=== PATIENT | female | born 1930 | race Caucasian/White ===

== ENCOUNTER → 2016-10-19 | Outpatient (CLI) | payer OTHER, MEDICARE ==
[2016-10-18 12:38] LABS: INR 3.1 (0.9-1.1); PROTHROMBIN TIME (PATIENT) 34.7 SECONDS (9.0-12.0)
[~2016-10-19] MED LIST: ACET-1311 PO; ALUM-30 PO; ASPI81TA28 PO; CALC12502 PO; CHOL100010 PO; CLC100X PO; CLX/20 PO; CRAN475C2 PO; CYAN10004 PO; DIGO0.122 PO; DILT30TA PO; FURO-85 PO; LORA-741 PO; LSX20 PO; MICO2CRE23 TOP; POLY335025 PO; PRED10TA PO; SENN-91 OP; WARF-284 PO
== END | disposition home or self-care (01) ==
LOC: C.LABWYN 12:41
PROVIDERS: ATTEND Nurse Practitioner Family
DX: Z51.81 Encounter for therapeutic drug level monitoring (principal); Z79.01 Long term (current) use of anticoagulants

== ENCOUNTER → 2016-10-23 | Outpatient (CLI) | payer OTHER, MEDICARE ==
[2016-10-23 12:07] LABS: INR 2.8 (0.9-1.1); PROTHROMBIN TIME (PATIENT) 31.4 SECONDS (9.0-12.0)
== END | disposition home or self-care (01) ==
LOC: C.LABWYN 09:53
PROVIDERS: ATTEND Nurse Practitioner Family
DX: Z79.01 Long term (current) use of anticoagulants (principal)

== ENCOUNTER → 2016-11-06 | Outpatient (CLI) | payer OTHER, MEDICARE ==
[2016-11-06 12:48] LABS: INR 1.7 (0.9-1.1); PROTHROMBIN TIME (PATIENT) 18.8 SECONDS (9.0-12.0)
== END | disposition home or self-care (01) ==
LOC: C.LABWYN 11:29
PROVIDERS: ATTEND Internal Medicine
DX: Z51.81 Encounter for therapeutic drug level monitoring (principal); Z79.01 Long term (current) use of anticoagulants

== ENCOUNTER → 2016-11-13 | Outpatient (CLI) | payer OTHER, MEDICARE ==
[2016-11-13 08:58] LABS: INR 2.3 (0.9-1.1); PROTHROMBIN TIME (PATIENT) 25.4 SECONDS (9.0-12.0)
== END | disposition home or self-care (01) ==
LOC: C.LABWYN 08:33
PROVIDERS: ATTEND Nurse Practitioner Family
DX: I48.91 Unspecified atrial fibrillation (principal)

== ENCOUNTER → 2016-11-27 | Outpatient (CLI) | payer OTHER, MEDICARE ==
[2016-11-27 12:29] LABS: PROTHROMBIN TIME (PATIENT) 22.2 SECONDS (9.0-12.0)
== END | disposition home or self-care (01) ==
LOC: C.LABWYN 14:59
PROVIDERS: ATTEND Nurse Practitioner Family
DX: Z79.01 Long term (current) use of anticoagulants (principal); Z51.81 Encounter for therapeutic drug level monitoring

== ENCOUNTER → 2016-11-29 | Outpatient (CLI) | payer OTHER, MEDICARE ==
[2016-11-29 12:48] LABS: BLOOD UREA NITROGEN 11 mg/dl (7-18); BUN/CREATININE RATIO 14.4 (10-20); CALCIUM 8.3 mg/dl (8.5-10.1); CARBON DIOXIDE 30 mmol/L (21-32); CHLORIDE 106 mmol/L (98-107); CREATININE 0.75 mg/dl (0.60-1.20); GLUCOSE 88 mg/dl (70-99); POTASSIUM 3.6 mmol/L (3.5-5.1); SODIUM 144 mmol/L (136-145)
== END | disposition home or self-care (01) ==
LOC: C.LABWYN 17:49
PROVIDERS: ATTEND Nurse Practitioner Family
DX: I10 Essential (primary) hypertension (principal)

== ENCOUNTER → 2016-12-18 | Outpatient (CLI) | payer OTHER, MEDICARE | END | disposition home or self-care (01) | LOC: C.LABWYN 14:53 | PROVIDERS: ATTEND Internal Medicine | DX: I50.9 Heart failure, unspecified (principal); I10 Essential (primary) hypertension ==

== ENCOUNTER → 2017-01-03 | Outpatient (CLI) | payer OTHER, MEDICARE ==
[~2017-01-03] MED LIST changes: +CHOL1CAP57 PO; +CLX40 PO; +DOCU1TAB6 PO; +DONE5TAB9 PO; +LNX125 PO
[2017-01-03 12:57] LABS: INR 2.2 (0.9-1.1); PROTHROMBIN TIME (PATIENT) 23.8 SECONDS (9.0-12.0)
== END | disposition home or self-care (01) ==
LOC: C.LABWYN 11:33
PROVIDERS: ATTEND Internal Medicine
DX: Z79.01 Long term (current) use of anticoagulants (principal)

== ENCOUNTER → 2017-02-07 | Outpatient (CLI) | payer OTHER, MEDICARE ==
[2017-02-07 12:21] LABS: INR 2.1 (0.9-1.1); PROTHROMBIN TIME (PATIENT) 22.7 SECONDS (9.0-12.0)
== END | disposition home or self-care (01) ==
LOC: C.LABWYN 12:45
PROVIDERS: ATTEND Internal Medicine
DX: Z79.01 Long term (current) use of anticoagulants (principal)

== ENCOUNTER → 2017-02-28 | Outpatient (CLI) | payer OTHER, MEDICARE ==
[~2017-02-28] MED LIST changes: -CHOL1CAP57 PO; -CLX40 PO; -DOCU1TAB6 PO; -DONE5TAB9 PO; -LNX125 PO
[2017-02-28 12:32] LABS: INR 1.6 (0.9-1.1); PROTHROMBIN TIME (PATIENT) 17.2 SECONDS (9.0-12.0)
== END | disposition home or self-care (01) ==
LOC: C.LABWYN 07:19
PROVIDERS: ATTEND Internal Medicine
DX: I48.91 Unspecified atrial fibrillation (principal)

== ENCOUNTER → 2017-03-07 | Outpatient (CLI) | payer OTHER, MEDICARE ==
[~2017-03-07] MED LIST changes: +CHOL1CAP57 PO; +CLX40 PO; +DOCU1TAB6 PO; +DONE5TAB9 PO; +LNX125 PO
[2017-03-07 12:30] LABS: INR 1.7 (0.9-1.1); PROTHROMBIN TIME (PATIENT) 18.9 SECONDS (9.0-12.0)
== END | disposition home or self-care (01) ==
LOC: C.LABWYN 13:39
PROVIDERS: ATTEND Internal Medicine
DX: I10 Essential (primary) hypertension (principal); F32.9 Major depressive disorder, single episode, unspecified; I50.9 Heart failure, unspecified; F03.90 Unspecified dementia, unspecified severity, without behavioral disturbance, psychotic disturbance, mood disturbance, and anxiety; N39.41 Urge incontinence

== ENCOUNTER → 2017-03-14 | Outpatient (CLI) | payer OTHER, MEDICARE ==
[2017-03-14 12:18] LABS: INR 1.7 (0.9-1.1); PROTHROMBIN TIME (PATIENT) 18.7 SECONDS (9.0-12.0)
== END | disposition home or self-care (01) ==
LOC: C.LABWYN 12:05
PROVIDERS: ATTEND Internal Medicine
DX: Z51.81 Encounter for therapeutic drug level monitoring (principal); Z79.01 Long term (current) use of anticoagulants

== ENCOUNTER → 2017-04-04 | Outpatient (CLI) | payer OTHER, MEDICARE ==
[~2017-04-04] MED LIST changes: -CHOL1CAP57 PO; -CLX40 PO; -DOCU1TAB6 PO; -DONE5TAB9 PO; -LNX125 PO
[2017-04-04 12:39] LABS: INR 1.6 (0.9-1.1); PROTHROMBIN TIME (PATIENT) 17.4 SECONDS (9.0-12.0)
== END | disposition home or self-care (01) ==
LOC: C.LABWYN 13:34
PROVIDERS: ATTEND Internal Medicine
DX: I48.91 Unspecified atrial fibrillation (principal)

== ENCOUNTER → 2017-04-18 | Outpatient (CLI) | payer OTHER, MEDICARE ==
[2017-04-18 12:38] LABS: HEMATOCRIT 39.3 % (37-47); MEAN CELL VOLUME 89.7 fL (80-100); MEAN CORPUSCULAR HEMOGLOBIN 28.3 pg (25-34); MEAN CORPUSCULAR HGB CONC 31.6 g/dl (32-36); MEAN PLATELET VOLUME 9.6 fL (7.4-10.4); PLATELET COUNT 268 K/uL (130-400); RED BLOOD COUNT 4.38 M/uL (4.2-5.4); WHITE BLOOD COUNT 8.33 K/uL (4.8-10.8)
[2017-04-18 13:00] LABS: BLOOD UREA NITROGEN 14 mg/dl (7-18); CALCIUM 8.6 mg/dl (8.5-10.1); CARBON DIOXIDE 30 mmol/L (21-32); CHLORIDE 108 mmol/L (98-107); CREATININE 0.85 mg/dl (0.60-1.20); GLUCOSE 84 mg/dl (70-99); POTASSIUM 3.6 mmol/L (3.5-5.1); SODIUM 143 mmol/L (136-145)
== END | disposition home or self-care (01) ==
LOC: C.LABWYN 13:31
PROVIDERS: ATTEND Nurse Practitioner Adult Health
DX: I50.9 Heart failure, unspecified (principal)

== ENCOUNTER → 2017-05-17 | Outpatient (CLI) | payer OTHER, MEDICARE ==
[2017-05-17 08:52] LABS: INR 2.3 (0.9-1.1); PROTHROMBIN TIME (PATIENT) 25.7 SECONDS (9.0-12.0)
== END | disposition home or self-care (01) ==
LOC: C.LABWYN 08:35
PROVIDERS: ATTEND Internal Medicine
DX: I48.91 Unspecified atrial fibrillation (principal)

== ENCOUNTER → 2017-05-24 | Outpatient (CLI) | payer OTHER, MEDICARE ==
[2017-05-24 10:41] LABS: INR 2.5 (0.9-1.1); PROTHROMBIN TIME (PATIENT) 27.6 SECONDS (9.0-12.0)
== END | disposition home or self-care (01) ==
LOC: C.LABWYN 10:23
PROVIDERS: ATTEND Internal Medicine
DX: Z51.81 Encounter for therapeutic drug level monitoring (principal); Z79.01 Long term (current) use of anticoagulants

== ENCOUNTER → 2017-06-06 | Outpatient (CLI) | payer OTHER, MEDICARE ==
[2017-06-06 12:48] LABS: INR 2.2 (0.9-1.1); PROTHROMBIN TIME (PATIENT) 24.1 SECONDS (9.0-12.0)
== END | disposition home or self-care (01) ==
LOC: C.LABWYN 06:13
PROVIDERS: ATTEND Nurse Practitioner Adult Health
DX: Z79.01 Long term (current) use of anticoagulants (principal)

== ENCOUNTER → 2017-06-27 | Outpatient (CLI) | payer OTHER, MEDICARE ==
[2017-06-27 12:10] LABS: INR 2.2 (0.9-1.1); PROTHROMBIN TIME (PATIENT) 24.7 SECONDS (9.0-12.0)
== END | disposition home or self-care (01) ==
LOC: C.LABWYN 12:13
PROVIDERS: ATTEND Internal Medicine
DX: Z51.81 Encounter for therapeutic drug level monitoring (principal); Z79.01 Long term (current) use of anticoagulants

== ENCOUNTER → 2017-07-11 | Outpatient (CLI) | payer OTHER, MEDICARE ==
[2017-07-11 12:27] LABS: HEMATOCRIT 39.5 % (37-47); MEAN CELL VOLUME 88.6 fL (80-100); MEAN CORPUSCULAR HEMOGLOBIN 27.8 pg (25-34); MEAN CORPUSCULAR HGB CONC 31.4 g/dl (32-36); MEAN PLATELET VOLUME 9.6 fL (7.4-10.4); PLATELET COUNT 305 K/uL (130-400); RED BLOOD COUNT 4.46 M/uL (4.2-5.4); WHITE BLOOD COUNT 11.16 K/uL (4.8-10.8)
[2017-07-11 12:52] LABS: BLOOD UREA NITROGEN 11 mg/dl (7-18); CALCIUM 8.2 mg/dl (8.5-10.1); CARBON DIOXIDE 29 mmol/L (21-32); CHLORIDE 102 mmol/L (98-107); CREATININE 0.73 mg/dl (0.60-1.20); GLUCOSE 99 mg/dl (70-99); POTASSIUM 3.3 mmol/L (3.5-5.1); SODIUM 138 mmol/L (136-145)
== END | disposition home or self-care (01) ==
LOC: C.LABWYN 09:37
PROVIDERS: ATTEND Internal Medicine
DX: D64.9 Anemia, unspecified (principal); M81.0 Age-related osteoporosis without current pathological fracture

== ENCOUNTER → 2017-07-18 | Outpatient (CLI) | payer OTHER, MEDICARE ==
[~2017-07-18] MED LIST changes: +CHOL1CAP57 PO; +CLX40 PO; +DOCU1TAB6 PO; +DONE5TAB9 PO; +LNX125 PO
[2017-07-18 13:46] LABS: INR 2.7 (0.9-1.1); PROTHROMBIN TIME (PATIENT) 30.3 SECONDS (9.0-12.0)
== END ==
LOC: C.LABWYN 12:35
PROVIDERS: ATTEND Internal Medicine
DX: Z79.01 Long term (current) use of anticoagulants (principal)

== ENCOUNTER 2017-07-21 20:17 | Emergency (ER) | payer OTHER, MEDICARE ==
[~2017-07-21] VITALS: Ht 165.1 cm; Wt 103.0 kg
[~2017-07-21 20:17] MED LIST changes: -CHOL1CAP57 PO; -CLX40 PO; -DOCU1TAB6 PO; -DONE5TAB9 PO; -LNX125 PO
[2017-07-21 20:23] VITALS: BP 149/98; PULSE 74; TEMP 37.4; O2SAT 96; Ht 165.1 cm; Wt 103.0 kg
[2017-07-21] MEDS ORDERED: DONE5TAB9 PO (20:48)
[2017-07-21] MEDS ORDERED: CHOL1CAP57 PO (20:48)
[2017-07-21] MEDS ORDERED: CLX40 PO (20:48)
[2017-07-21] MEDS ORDERED: LNX125 PO (20:48)
[2017-07-21] MEDS ORDERED: DOCU1TAB6 PO (20:48)
--- NOTE | 2017-07-21 22:10 | EMERGENCY ROOM VISIT NOTE ---
History Report prepared by Irvin: Monik Phillips Under the Supervision of: Dr. Simon Forrester M.D. First contact with patient: 20:30 Chief Complaint: NOSE BLEED (MINOR) Stated Complaint: nosebleed History of Present Illness The patient is a 86 year old female who presents to the Emergency Room with complaints of a sudden nosebleed beginning at 1500 today. The patient denies chest pain and shortness of breath, but reports having a slight headache. The patient states that she takes Coumadin. She is not sure why she is on Coumadin. The nosebleed has stopped. She has no complaints at this time. Source of History: patient Onset: 1500 today Position: nose Quality: other (bleed) Timing: other (sudden) Associated Symptoms: + headache, No chest pain, No SOB Review of Systems See HPI for pertinent positives & negatives. A total of 10 systems reviewed and were otherwise negative. Past Medical & Surgical Medical Problems: (1) Atrial fibrillation (2) Basal cell carcinoma of face (3) CHF (4) deconditioning (5) Generalized osteoarthritis (6) Guillain-Laureano syndrome (7) History of appendectomy (8) History of cholecystectomy (9) Replacement of total knee joint (10) S/P esophageal dilitation 03-08-11 (11) Steroid therapy (12) SUBTHERPEUTIC INR (13) urinary retention Family History Patient reports no known family medical history. Social History Smoking Status: Former Smoker Alcohol Use: none Drug Use: none Marital Status: Housing Status: [facility] Occupation Status: retired Current/Historical Medications Scheduled Aspirin (Aspirin Ec), 81 MG PO DAILY Calcium Carbonate (Os-Candelario 500), 1 TAB PO DAILY Cholecalciferol (Vitamin D3), 1,000 UNITS PO DAILY Citalopram (Citalopram Hydrobromide), 40 MG PO DAILY Cranberry (Vaccinium Macrocarp (Cranberry Fruit), 475 MG PO BID Cyanocobalamin (Vitamin B-12 1000 Mcg), 1,000 MCG PO DAILY Digoxin (Digoxin), 0.125 MG PO DAILY Diltiazem Hcl (Cardizem), 30 MG PO QID Docusate Sodium (Docusate Sodium), 100 MG PO BID Donepezil HCl (Aricept), 5 MG PO DAILY Furosemide (Furosemide), 20 MG PO DAILY Polyethylene Glycol 3350 (Miralax), 17 GM PO DAILY Prednisone Tab (Prednisone), 10 MG PO DAILY Sennosides-Docusate Sodium (Senna S), 1 TAB OP DAILY Warfarin Sodium (Warfarin Sodium), 7.5 MG PO DAILY Scheduled PRN Acetaminophen (Tylenol), 325 MG PO Q4 PRN for Pain Alum & Mag Hydrox-Simethicone (Mylanta), 30 ML PO QID PRN for Heartburn Lorazepam (Ativan), 0.5 MG PO BID PRN for Anxiety Allergies Coded Allergies: Nitrofurantoin (Verified Allergy, Intermediate, MACROBID-HIVES, 07/21/17) Colchicine (Verified Allergy, Unknown, UNKNOWN, 07/21/17) Zolpidem (Verified Adverse Reaction, Mild, CONFUSION, HALLUCINATIONS, ) Physical Exam Vital Signs Date Time Temp Pulse Resp B/P (MAP) Pulse Ox O2 Delivery O2 Flow Rate FiO2 07/21/17 20:23 37.4 74 149/98 96 Room Air Physical Exam Constitutional: Vital signs reviewed. Eyes: Pupils are equal round reactive to light. Conjunctiva are noninjected. ENT: Pharynx is clear without erythema or exudate. Mucous membranes are moist. No active bleeding from the nostrils. Neck supple without meningeal signs. Respiratory: Clear to auscultation bilaterally. Breath sounds are equal bilaterally. Cardiovascular: Regular rate and rhythm. No rubs or gallops. GI: Soft, nondistended and nontender. Bowel sounds are present. Musculoskeletal: No peripheral edema. No lower extremity tenderness. Integumentary: No cyanosis. Neurological: The patient is awake and alert. No focal deficits. Psychiatric: Normal affect. Medical Decision & Procedures ED Course 2029: The patient was evaluated in room B8. A complete history and physical exam was performed. 2039: Upon reevaluation, the patient appeared to have improvement of her symptoms. I discussed tonight's findings with her. She verbalized agreement of the treatment plan. She was discharged home. Medical Decision This is a 86-year-old female on Coumadin who presents with a nosebleed. I did perform a limited focused review of portions of the patient's old chart on the electronic medical record. The patient's INR was 2.7 on the . I assessed the patient as noted above. She has no evidence of active bleeding at this time. Her INR was 2.7 just several days ago. There is not even dried blood in her nose at this time. There is no area for cautery. At this time I did not feel packing was indicated as she has complete resolution of her symptoms. I did discuss [id number] nosebleeds in the future with her and as well as her son due to her dementia. She was discharged home in good condition. She and her son were told that should she have recurrent symptoms she may require packing in the future. Medication Reconcilliation Current Medication List: was personally reviewed by me Blood Pressure Screening Patient's blood pressure: Elevated blood pressure Blood pressure disposition: Referred to PCP Impression Primary Impression: Epistaxis Additional Impression: Anticoagulated on Coumadin Scribe Attestation The scribe's documentation has been prepared under my direct and personally reviewed by me in its entirety. I confirm that the note above accurately reflects all work, treatment, procedures, and medical decision making performed by me. Departure Information Dispostion Home / Self-Care Referrals ANTONIETTA YARBROUGH (PCP) Forms HOME CARE DOCUMENTATION FORM, IMPORTANT VISIT INFORMATION, WORK / SCHOOL INSTRUCTIONS Patient Instructions ED Nosebleed, My [facility] Additional Instructions You have been examined and treated today on an emergency basis only. This is not a substitute for, or an effort to provide, complete comprehensive medical care. It is impossible to recognize and treat all injuries or illnesses in a single emergency department visit. It is therefore important that you follow up closely with your physician. Call as soon as possible for an appointment. Return for worsening symptoms or if you develop chest pain, shortness breath, lightheadedness, rectal bleeding, tarry stools or any other concerning symptoms. If bleeding recurs, hold continuous pressure for at least 30 minutes. If unable to control bleeding return to ED for potential nasal packing. Problem Qualifiers
== END 2017-07-21 20:48 | disposition home or self-care (01) ==
LOC: EDBD 20:17 → C.EDB 20:19
DX: R04.0 Epistaxis (principal); Z79.01 Long term (current) use of anticoagulants; C44.510 Basal cell carcinoma of anal skin; I50.9 Heart failure, unspecified; Z87.891 Personal history of nicotine dependence; Z79.82 Long term (current) use of aspirin

== ENCOUNTER → 2017-08-08 | Outpatient (CLI) | payer OTHER, MEDICARE ==
[~2017-08-08] MED LIST changes: -CHOL100010 PO; +CHOL1CAP57 PO; -CLC100X PO; -CLX/20 PO; +CLX40 PO; -DIGO0.122 PO; +DOCU1TAB6 PO; +DONE5TAB9 PO; -FURO-85 PO; +LNX125 PO; -MICO2CRE23 TOP
[2017-08-08 12:50] LABS: PROTHROMBIN TIME (PATIENT) 21.7 SECONDS (9.0-12.0)
== END | disposition home or self-care (01) ==
LOC: C.LABWYN 14:34
PROVIDERS: ATTEND Internal Medicine
DX: I48.91 Unspecified atrial fibrillation (principal)

== ENCOUNTER → 2017-08-24 | Outpatient (CLI) | payer OTHER, MEDICARE | END | disposition home or self-care (01) | LOC: C.LABSPEC 13:56 | PROVIDERS: ATTEND Internal Medicine | DX: R41.0 Disorientation, unspecified (principal) ==

== ENCOUNTER → 2017-08-29 | Outpatient (CLI) | payer OTHER, MEDICARE ==
[2017-08-29 13:12] LABS: PROTHROMBIN TIME (PATIENT) 44.4 SECONDS (9.0-12.0)
[2017-08-29 13:19] LABS: INR 3.9 (0.9-1.1)
== END | disposition home or self-care (01) ==
LOC: C.LABWYN 10:15
PROVIDERS: ATTEND Internal Medicine
DX: Z79.01 Long term (current) use of anticoagulants (principal); Z51.81 Encounter for therapeutic drug level monitoring

== ENCOUNTER → 2017-09-05 | Outpatient (CLI) | payer OTHER, MEDICARE ==
[2017-09-05 12:35] LABS: INR 1.6 (0.9-1.1); PROTHROMBIN TIME (PATIENT) 16.3 SECONDS (9.0-12.0)
== END | disposition home or self-care (01) ==
LOC: C.LABWYN 10:15
PROVIDERS: ATTEND Internal Medicine
DX: Z79.01 Long term (current) use of anticoagulants (principal)

== ENCOUNTER → 2017-09-19 | Outpatient (CLI) | payer OTHER, MEDICARE ==
[2017-09-19 12:52] LABS: PROTHROMBIN TIME (PATIENT) 21.2 SECONDS (9.0-12.0)
== END | disposition home or self-care (01) ==
LOC: C.LABWYN 11:10
PROVIDERS: ATTEND Internal Medicine
DX: Z51.81 Encounter for therapeutic drug level monitoring (principal); Z79.01 Long term (current) use of anticoagulants

== ENCOUNTER → 2017-10-10 | Outpatient (CLI) | payer OTHER, MEDICARE ==
[2017-10-10 12:50] LABS: INR 2.2 (0.9-1.1)
== END | disposition home or self-care (01) ==
LOC: C.LABWYN 10:06
PROVIDERS: ATTEND Internal Medicine
DX: Z79.01 Long term (current) use of anticoagulants (principal); Z51.81 Encounter for therapeutic drug level monitoring

== ENCOUNTER → 2017-10-31 | Outpatient (CLI) | payer OTHER, MEDICARE ==
[2017-10-31 12:32] LABS: INR 1.7 (0.9-1.1)
== END | disposition home or self-care (01) ==
LOC: C.LABWYN 09:37
PROVIDERS: ATTEND Internal Medicine
DX: Z79.01 Long term (current) use of anticoagulants (principal); Z51.81 Encounter for therapeutic drug level monitoring

== ENCOUNTER → 2017-11-05 | Outpatient (CLI) | payer OTHER, MEDICARE ==
[2017-11-05 13:04] LABS: INR 2.2 (0.9-1.1)
== END | disposition home or self-care (01) ==
LOC: C.LABWYN 10:24
PROVIDERS: ATTEND Nurse Practitioner Adult Health
DX: Z79.01 Long term (current) use of anticoagulants (principal); Z51.81 Encounter for therapeutic drug level monitoring

== ENCOUNTER → 2017-11-12 | Outpatient (CLI) | payer OTHER, MEDICARE ==
[2017-11-12 13:03] LABS: INR 2.3 (0.9-1.1)
== END | disposition home or self-care (01) ==
LOC: C.LABWYN 14:45
PROVIDERS: ATTEND Nurse Practitioner Adult Health
DX: Z51.81 Encounter for therapeutic drug level monitoring (principal); Z79.01 Long term (current) use of anticoagulants

== ENCOUNTER → 2017-11-28 | Outpatient (CLI) | payer OTHER, MEDICARE ==
[2017-11-28 12:57] LABS: HEMATOCRIT 38.1 % (37-47); HEMOGLOBIN 11.7 g/dL (12.0-16.0); MEAN CELL VOLUME 83.7 fL (80-100); MEAN CORPUSCULAR HEMOGLOBIN 25.7 pg (25-34); MEAN CORPUSCULAR HGB CONC 30.7 g/dl (32-36); MEAN PLATELET VOLUME 9.8 fL (7.4-10.4); PLATELET COUNT 377 K/uL (130-400); RED CELL DISTRIBUTION WIDTH SD 57.8 fL (36.4-46.3); WHITE BLOOD COUNT 10.69 K/uL (4.8-10.8)
[2017-11-28 13:00] LABS: BLOOD UREA NITROGEN 15 mg/dl (7-18); CALCIUM 8.6 mg/dl (8.5-10.1); CARBON DIOXIDE 28 mmol/L (21-32); CREATININE 0.89 mg/dl (0.60-1.20); GLUCOSE 92 mg/dl (70-99); POTASSIUM 3.9 mmol/L (3.5-5.1); SODIUM 139 mmol/L (136-145)
== END | disposition home or self-care (01) ==
LOC: C.LABWYN 11:45
PROVIDERS: ATTEND Nurse Practitioner Adult Health
DX: M81.0 Age-related osteoporosis without current pathological fracture (principal); I50.9 Heart failure, unspecified; R63.2 Polyphagia

== ENCOUNTER → 2017-12-03 | Outpatient (CLI) | payer OTHER, MEDICARE ==
[2017-12-03 12:46] LABS: INR 2.2 (0.9-1.1)
== END | disposition home or self-care (01) ==
LOC: C.LABWYN 09:22
PROVIDERS: ATTEND Internal Medicine
DX: Z79.01 Long term (current) use of anticoagulants (principal); Z51.81 Encounter for therapeutic drug level monitoring

== ENCOUNTER → 2017-12-24 | Outpatient (CLI) | payer OTHER, MEDICARE ==
[2017-12-24 12:34] LABS: INR 2.2 (0.9-1.1)
== END | disposition home or self-care (01) ==
LOC: C.LABWYN 15:42
PROVIDERS: ATTEND Internal Medicine
DX: Z79.01 Long term (current) use of anticoagulants (principal)

== ENCOUNTER → 2017-12-26 | Outpatient (CLI) | payer OTHER, MEDICARE ==
--- NOTE | 2018-01-04 09:54 | CODING QUERY NO DIAGNOSIS ---
TREATMENT RENDERED WITHOUT A DIAGNOSIS 30 To promote full compliance with coding requirements relating to patient care, physician participation is requested in all cases of grain packer uncertainty. Please assist us with providing a diagnosis/symptom for the test(s) below: A diagnosis/symptom was not documented on your Order. A valid diagnosis/symptom is required to bill all insurances. Please remember that we are unable to code a diagnosis of rule out, probable, possible, questionable, or suspected. DOS 12/26/17 Tests that require a diagnosis: * TSH DIAGNOSIS: Provider Signature: Date: Thank you Sonia Andrade [employer] Information Management Once completed, please kindly fax back to [phone] For questions please call [phone]
== END | disposition home or self-care (01) ==
LOC: C.LABWYN 11:50
PROVIDERS: ATTEND Internal Medicine
DX: E03.9 Hypothyroidism, unspecified (principal)

== ENCOUNTER → 2018-01-14 | Outpatient (CLI) | payer OTHER, MEDICARE ==
[2018-01-14 13:13] LABS: INR 1.9 (0.9-1.1)
== END | disposition home or self-care (01) ==
LOC: C.LABWYN 11:40
PROVIDERS: ATTEND Internal Medicine
DX: Z79.01 Long term (current) use of anticoagulants (principal); Z51.81 Encounter for therapeutic drug level monitoring

== ENCOUNTER → 2018-01-28 | Outpatient (CLI) | payer OTHER, MEDICARE ==
[2018-01-28 13:08] LABS: INR 2.5 (0.9-1.1)
== END | disposition home or self-care (01) ==
LOC: C.LABWYN 17:30
PROVIDERS: ATTEND Internal Medicine
DX: Z79.01 Long term (current) use of anticoagulants (principal)

== ENCOUNTER → 2018-02-18 | Outpatient (CLI) | payer OTHER, MEDICARE ==
[2018-02-18 13:08] LABS: INR 2.1 (0.9-1.1)
== END | disposition home or self-care (01) ==
LOC: C.LABWYN 18:05
PROVIDERS: ATTEND Internal Medicine
DX: Z79.01 Long term (current) use of anticoagulants (principal); Z51.81 Encounter for therapeutic drug level monitoring

== ENCOUNTER → 2018-04-29 | Outpatient (CLI) | payer OTHER, MEDICARE ==
[2018-04-29 13:22] LABS: INR 2.7 (0.9-1.1)
== END | disposition home or self-care (01) ==
LOC: C.LABWYN 15:16
PROVIDERS: ATTEND Internal Medicine
DX: Z79.01 Long term (current) use of anticoagulants (principal)

== ENCOUNTER → 2018-05-20 | Outpatient (CLI) | payer OTHER, MEDICARE | END | disposition home or self-care (01) | LOC: C.LABWYN 16:14 | PROVIDERS: ATTEND Internal Medicine | DX: Z79.01 Long term (current) use of anticoagulants (principal) ==

== ENCOUNTER 2019-05-16 03:07 | Inpatient (IN) ==
--- OUTSIDE RECORDS SUMMARY | 2019-05-16 03:10 | External Medical Summary | Continuity of Care Document ---
:1930 Author Name Jairo Davis Address Unavailable Unavailable , Care Team Providers Name Role Phone [facility] [email or web address].[email or web address] Unavailable [email or web address] PCP, UNKNOWN Unavailable Unavailable Problems Active medical history not documented Allergies and Adverse Reactions Allergy history not documented Medications Medications not documented Procedures Procedures not documented Immunizations Immunizations not documented Plan of Treatment Planned Observations Planned Goals not documented Results No Known Results Results not documented
[2019-05-16] MEDS ORDERED: ACETAMINOPHEN 1,000 MG/100 ML VIAL IV STA (03:13)
[2019-05-16] MEDS ORDERED: ONDANSETRON INJ 2 MG/ML 2 ML VIAL IV STA (03:13)
[2019-05-16] MEDS ORDERED: SODIUM CHLORIDE 0.9% 1000ML 1,000 ML IV ONE ×2 (03:13→03:33)
[2019-05-16] MEDS ORDERED: VANCOMYCIN HCL 1,750 MG in SODIUM CHLORIDE 0.9% 500 ML IV ONE (03:24)
[2019-05-16] MEDS ORDERED: PIPERACILL/TAZOBAC CONSULT ACTIVE PRN ×2 (03:24→06:43)
[2019-05-16] MEDS ORDERED: PIPERACILLIN/TAZOBACTAM 4.5 GM/120 ML BAG IV ONE (03:24)
[2019-05-16] MEDS ORDERED: VANCOMYCIN CONSULT ACTIVE PRN ×3 (03:24→23:33)
[2019-05-16 03:25] LABS: Basophils # (auto) 0.03 K/uL (0-0.2); Basophils % (auto) 0.1 %; Hematocrit (blood only) 44.8 % (37-47); Hemoglobin 15.2 g/dL (12.0-16.0); Immature Granulocytes # (auto) 0.31 K/uL (0.00-0.02); Immature Granulocytes % (auto) 1.5 %; Lymphocytes # (auto) 2.09 K/uL (1.2-3.4); Mean Corpuscular Hgb Conc 33.9 g/dL (32-36); Mean Corpuscular Volume 96.1 fL (80-100); Mean Platelet Volume 9.9 fL (7.4-10.4); Monocytes # (auto) 0.26 K/uL (0.11-0.59); Monocytes % (auto) 1.2 %; Neutrophils # (auto) 18.14 K/uL (1.4-6.5); Neutrophils % (auto) 87.2 %; Platelet Count 212 K/uL (130-400); RDW Coefficient of Variation 15.7 % (11.5-14.5); RDW Standard Deviation 54.7 fL (36.4-46.3); Red Blood Count 4.66 M/uL (4.2-5.4); White Blood Count 20.83 K/uL (4.8-10.8)
[2019-05-16] MEDS ORDERED: PIPERACILLIN/TAZOBACTAM 4.5 GM/120ML D5W ONE (03:27)
[2019-05-16 03:34] LABS: Appearance Urine Turbid (Clear); Bacteria Urine Automated 4+ (Negative); Bilirubin Urine Negative (Negative); Blood Urine 2+ (Negative); Color Urine Dark Yellow; Epithelial Cell Urine Auto 20-30 /lpf (0-5); Glucose Urine UA Negative (Negative); Ketones Urine Trace (Negative); Leukocyte Esterase Urine 1+ (Negative); Nitrite Urine Negative (Negative); Specific Gravity Urine 1.015 (1.000-1.030); Urobilinogen Urine Negative (Negative); WBC Urine Automated >30 /hpf (0-5)
[2019-05-16 03:37] LABS: INR 1.3 (0.9-1.1); Partial Thromboplastin Ratio 1.1; Partial Thromboplastin Time 28.5 Seconds (21.0-31.0); Prothrombin Time 12.7 Seconds (9.0-12.0)
[2019-05-16 03:42] LABS: Alanine Aminotransferase 36 U/L (12-78); Albumin Level 2.9 gm/dl (3.4-5.0); Aspartate Aminotransferase 41 U/L (15-37); BUN Creatinine Ratio 13.4 (10-20); Bilirubin Direct 0.7 mg/dl (0-0.2); Blood Urea Nitrogen 21 mg/dl (7-18); Calcium 9.3 mg/dl (8.5-10.1); Carbon Dioxide 22 mmol/L (21-32); Chloride 107 mmol/L (98-107); Est GFR (African American) 33.3; Est GFR (Non-African American) 28.7; Glucose 101 mg/dl (70-99); Magnesium 1.9 mg/dl (1.8-2.4); Potassium 3.4 mmol/L (3.5-5.1); Sodium 140 mmol/L (136-145)
[2019-05-16 03:44] LABS: Protein Urine 3+ (Negative)
[2019-05-16 03:55] LABS: Cast Urine Automated 0 /lpf (0-5); RBC Urine Automated 0-4 /hpf (0-4)
[2019-05-16 03:56] LABS: Alkaline Phosphatase 132 U/L (45-117); Bilirubin,Total 1.5 mg/dl (0.2-1); Total Protein 7.4 gm/dl (6.4-8.2)
[2019-05-16] MEDS ORDERED: HYDROCORTISONE SOD SUCCINATE 100 MG/2 ML VIAL IV STA (04:08)
[2019-05-16] MEDS ORDERED: SODIUM CHLORIDE 0.9% 1000ML 500 ML IV ONE (04:15)
[2019-05-16] MEDS ORDERED: NOREPINEPHRINE BIT INJ 8 MG in DEXTROSE 5% 500 ML IV SCH ×2 (04:15→06:43)
--- NOTE | 2019-05-16 05:18 | History & Physical Report ---
Date of Service May 16, 2019 Assessment & Plan (1) Altered mental status: 88 y/o F Hx CAD, AF, HTN, dementia, PMR. She is a resident of [facility] and was sent to the ER due to fever and AMS. She had apparently been vomiting the prior day as well. The pt was hypotensive and febrile on arrival to the ER. She received IVF and is requiring pressors to maintain an adequate blood pressure. She is unable to communicate any meaningful information at the time of admission. Initial labs are notable leukocytosis, lactic acidosis and an elevated troponin. A UA is marhginally + and a CXR may demonstrate a RLL PNM. A cough was not reoprted and she was not hypoxic on arrival to the ER. 1) AMS - presumed due to infection - UTI vs PNM - possibly aspiration as vomiting was reported. Placed on Zosyn and Vanc pending cultures - assigned to ICU on low dose levophed. 2) CAD - elevated trop - likely due to demand - ME not supported by EKG/symptoms - we will trend and obtain an echo - she takes ASA daily. Will anticoagulate if trends up. 3) PMR - receiving stress- dose steroids 4) AF - cont diltiazem, ASA DNR/DNI - confirmed with son - total time for this admit review of labs, meds, imaging, records - discussion with pt's son and ER attending, including critical care time - 49 min Present on Admission?: Yes History of Present Illness Chief Complaint: From [facility] with fever, hypotension Primary Care Provider: [facility] 88 y/o F Hx CAD, AF, HTN, dementia, PMR. She is a resident of [facility] and was sent to the ER due to fever and AMS. She had apparently been vomiting the prior day as well. The pt was hypotensive and febrile on arrival to the ER. She received IVF and is requiring pressors to maintain an adequate blood pressure. She is unable to communicate any meaningful information at the time of admission. Initial labs are notable leukocytosis, lactic acidosis and an elevated troponin. A UA is marhginally + and a CXR may demonstrate a RLL PNM. A cough was not reoprted and she was not hypoxic on arrival to the ER. PMH: 1) CAD - LAD stent 2012 2) Paroxysmal atrial fibrillation - not on anticoagulation due to history of falls 3) Dementia 4) HTN 5) PMR daily prednisone 6) Echo 2018 - moderate MR, TR, pulm HTN 7) Proximal humeral fracture 08/2018 Surgical: R RTSR 08/2018 Social: group home resident. No smoking history. Family: Noncontributory Allergies Allergy/AdvReac Type Severity Reaction Status Date / Time nitrofurantoin Allergy Intermediate MACROBID-HI Verified 05/16/19 03:27 VES colchicine Allergy Unknown UNKNOWN Verified 05/16/19 03:27 zolpidem AdvReac Mild CONFUSION, Verified 05/16/19 03:27 HALLUCINATIONS Home Medications Home Medications Medication Instructions Recorded Confirmed Type alum-mag hydroxide-simeth [Mi-Acid] 30 ml PO QID PRN 07/28/18 05/16/19 History aspirin 81 mg PO DAILY 07/28/18 05/16/19 History calcium carbonate [Oysco-500] 500 mg PO QAM 07/28/18 05/16/19 History cholecalciferol (vitamin D3) 1,000 unit PO DAILY 07/28/18 05/16/19 History [Vitamin D3] citalopram 20 mg PO DAILY 07/28/18 05/16/19 History cranberry 450 mg PO BID 07/28/18 05/16/19 History cyanocobalamin (vitamin B-12) 1,000 mcg PO DAILY 07/28/18 05/16/19 History [Vitamin B-12] digoxin 0.125 mg PO DAILY 07/28/18 05/16/19 History diltiazem HCl 30 mg PO QID 07/28/18 05/16/19 History docusate sodium [Colace] 100 mg PO BID 07/28/18 05/16/19 History donepezil 5 mg PO DAILY 07/28/18 05/16/19 History furosemide [Lasix] 20 mg PO DAILY 07/28/18 05/16/19 History polyethylene glycol 3350 [Miralax] 17 g PO DAILY 07/28/18 05/16/19 History potassium chloride [Klor-Con 10] 10 meq PO BID 07/28/18 05/16/19 History prednisone 10 mg PO DAILY 07/28/18 05/16/19 History sennosides-docusate sodium 1 tab PO DAILY 07/28/18 05/16/19 History [Senna-S] acetaminophen 650 mg GA Q6H PRN 05/16/19 05/16/19 History bisacodyl [Dulcolax (bisacodyl)] 10 mg GA DAILY PRN 05/16/19 05/16/19 History ferrous gluconate 324 mg PO TID 05/16/19 05/16/19 History promethazine 25 mg GA Q6H PRN 05/16/19 05/16/19 History tramadol 50 mg PO Q6H PRN 05/16/19 05/16/19 History Past Med/Surg History Medical History CAD (coronary artery disease) (Chronic) s/p stent to LAD in 2012 In 2012, the patient was seen as an outpatient by Dr. Rodriguez, with complaint of symptoms consistent with unstable angina, she was found to have significant lateral ST segment depression on EKG and was therefore hospitalized and underwent cardiac catheterization on 07/03/13 with findings of an ulcerated culprit plaque in the first diagonal branch of the LAD with patent coronaries otherwise. Atrial fibrillation (Chronic) PAF. hospitalized once for A fib with RVR. On COUMADIN Dementia (Chronic) Polymyalgia rheumatica (Chronic) On prednisone 10mg PO daily. GERD (gastroesophageal reflux disease) (Chronic) HTN (hypertension) (Chronic) Fall (Acute) Patient reports fall was preceded by dizziness. Denies LOC. This happened last month resulting in an ER visit with large knee effusion. Basal cell carcinoma of face (Resolved Unknown) NSTEMI (non-ST elevated myocardial infarction) (Resolved) 2012 Alzheimer disease (Chronic) NSTEMI (non-ST elevated myocardial infarction) (Resolved) Anemia Surgical History History of total hip arthroplasty History of colonoscopy History of spinal fusion Family History Other Family history of high blood pressure Social History Preferred Language: Uruguayan Communication Ability: Effective Combination Building Inspector Required: Yes Beliefs That Will Affect Care: None marital status: / Current Living Situation: Personal Care Facility Other Information That Helps Us Care for You: No Feels Safe at Home: Yes Safety Concerns: Feels Safe At This Time Smoking Status: Never smoker Do You Dip or Chew Tobacco: No ; Second Hand Exposure: No ; Hx Alcohol Use: No Hx Substance Use: No Review of Systems Review of Systems: Cannot obtain Physical Exam Physical Exam: General: Somnolent, elderly F - no distress ENT: No erythema or exudates, no thrush Eyes: DIVYA, EOMI Head and neck: Normocephalic, atraumatic, No JVD, neck is supple. Chest/heart: Nontender, S1,2, irr, + systolic murmur Lungs: CTAB, no wheezing or crackles Abdomen: Nontender, nondistended, BS+ Neuro: Somnolent, without motor deficits Musculoskeletal: No joint inflammation, muscle tenderness, FROM Skin: No acute rashes or ulcers Extremities: No clubbing, cyanosis, + edema Results & Data Vital Signs (Past 12 Hours) Vital Signs Temp Pulse Pulse Resp BP BP Pulse Ox 05/16/19 04:54 101.3 F H 05/16/19 04:40 87 20 91/50 L 97 05/16/19 04:27 97 05/16/19 04:04 85 20 69/48 L 92 05/16/19 03:19 104.2 F H 05/16/19 03:11 98.4 F 119 H 22 85/55 L 91 PG Care Time/CCT Total # of Minutes Spent Total Time Spent with Patient: Total time spent is greater than 50% in coordination of care (as documented) at patient's floor/unit and/or counseling patient:
[2019-05-16] MEDS ORDERED: SODIUM CHLORIDE 0.9% 1000ML 1,000 ML IV SCH (05:30)
--- NOTE | 2019-05-16 05:42 | Emergency Department Note ---
Entered by Meredith Tatum acting as a scribe for Beto Torres MD ED Provider Note Name: Olivia Mcguire Age: 88 F Arrives Via: EMS Informant: EMS, Patient CC: Fever HPI: The patient is an 88 year old female presenting to the Emergency Department via EMS complaining of a persistent fever starting 1 day ago. 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 They state that she has been nauseous and vomiting for the past 2 days. They explain that she has been experiencing diarrhea. They note that they put the patient on 2L of supplemental oxygen via nasal cannula LOADER OPERATOR/GROUND LEADER and that she doesnt usually use supplemental oxygen. They add that the patient has dementia and resides at [facility]. The patient reports that she has slight abdominal pain. She denies chest pain, shortness of breath and lower extremity pain. The HPI and ROS are limited due to dementia and acuity. ROS: The HPI and ROS are limited due to dementia and acuity. Past Medical History: See past medical history. Past Surgical History: Total hip arthroplasty, Spinal fusion, Colonoscopy. Family History: HTN. Social History: Resides at personal care facility. . Feels safe at home. Never a smoker. Home Medications: See home medication list. Allergies Nitrofurantonin, Colchicine, Zolpidem. Physical: Vitals: BP: 85/55, Pulse: 119, Respirations: 22, Temperature: 104.2F, O2 Saturation: 91, Delivery: Room air. Exam: GENERAL: Patient is acutely ill, dehydrated appearing and in moderate distress. EYES: No scleral icterus, unremarkable pupils. ENT: Mucous membranes dry, no nasal congestion. NECK: No masses appreciated, no meningismus, trachea is midline. RESPIRATORY: No dyspnea. Clear to auscultation and equal bilaterally. No wheeze, no rhonchi. CARDIOVASCULAR: Tachycardic rate with a systolic murmur. No rubs or gallops appreciated. GASTROINTESTINAL: Abdomen soft, non-tender, no peritonitis. Bowel sounds positive. No masses appreciated. BACK: No midline tenderness, no CVA tenderness EXTREMITIES: Normal motion all extremities, no cyanosis, no edema. NEUROLOGIC: Awake and looking around room, no acute motor or sensory deficits, no focal weakness, cranial nerves grossly intact. SKIN: No rash, no jaundice, no diaphoresis. ED Course: 030: Prior Medical Record, Triage/Nursing Notes, Medications, Allergies reviewed by Me. The patient was evaluated in room B12B, and a complete history and physical examination were performed. 0324: Straight catheterization by nursing at this time reveals thick, cloudy u rine. 0336: I reevaluated the patient at this time. The patient is getting IV fluids and a second set of blood cultures are being obtained. Her oxygen saturation is 92% on room air while lying flat. 0348: I reevaluated the patient who has about 1L of fluid her. Her blood pressure is still in the 80s. Her heart rate has come down into the mid 90s. Her oxygen saturation is 98% on 2L of supplemental oxygen via nasal cannula. 0359: I checked on the patient at this time. After 1500 cc of fluid the patients blood pressure is 75/45. She is breathing comfortably and her heart rate has decreased to the 80s. 0400: I asked the charge nurse to find the patients family contact information at this time. 0406: Nursing notes that the patients blood pressure continues to worsen. Pressers have been ordered. 0412: Nursing notes that the patients son is currently 5 to 10 minutes away from the hospital and should be at the patients bedside shortly. 0417: I checked on the patient at this time who has had just over 2L of fluid. She is breathing comfortably. Her oxygen saturation is in the upper 90s on 2L of supplemental oxygen via nasal cannula. Further fluids have been ordered along with Levophed and steroids. 0424: I am titrating up Levophed at this time. 0435: The patients son is at bedside at this time. Her systolic blood pressure is improving and is now in the 90s. Dr. Ashlee WREN hospitalist has been paged for consult. 0452: I reevaluated the patient at this time. Her blood pressure is109/50. She is awake and demented. The patients son says she is at her baseline. 0518: Patient is stable at this time. She is still not making much urine. She is receiving 30 ml/kg bolus. 0550: I discussed the patient's case with Dr. Rosado - SIENA hospitalist. He will evaluate the patient for further management. 0602: Dr. Rosado is at the patients bedside at this time. Vital Signs: reviewed and remarkable for hypotension, tachy, febrile Labs: Reviewed and remarkable for elevated WBC, Lactic, Trop, Cr Interventions: Saline Lock, NSS bolus 2.5L IV, Zofran 4mg IV, Vanco IV, Zosyn 4.5gm IV, Hydrocortisone 100mg IV, Levophed gtt, NSS infusion Imaging: X ray results are stated below per my interpretation: Chest: 1 view: Mild congestive findings, otherwise no infiltrate, no effusion, normal cardiac border. EKG: Per My Interpretation: Indication Hypotension: ST 121, qtc 462. No ectopy, no ischemia. Similar though with increased rate to 09/17/18 Consults: Dr Ashlee GONZALEZ Hospitalist Blood pressure: Hypotensive Disposition: Hospitalization Differentials: Viral, Pharyngitis, Cellulitis, Pneumonia, Influenza, Meningitis, Sepsis, Bacteremia, UTI/Pyelonephritis, Endocrine and Toxicologic amongst other pathologies entertai hi. Medical Decision Makin yr old demented [facility] patient arrives for evaluation of fever. Rectal temp 40. Hypotensive and tachycardic on arrival. Dry appearing. Immediately 2 IVs established and over course next 60 min given 30ml/kg IV fluids plus fluids from abx. BP remained low though HR vastly improved. She continued to breath comfortably though did require some NC O2. She was given IV steroids as chronically on prednisone. Started Levophed peripherally low dose with improvement in BP. Patient tolerated this well. BP trending up. UA consistent with UTI and was given early broad spectrum abx (Zosyn/Vanco). WBC elevated along with LA and procalcitonin all consistent with findings of septic shock. She is demented and pleasant and per son who arrived he notes she is at her baseline. She has no TTP abdomen and thus I do not feel that imaging indicated at this time. No further vomiting while here and I don't see obvious aspiration on CXR at this time. She does have CHF history thus monitored closely while receiving large fluid boluses but tolerated this well. Trop elevated likely secondary to sepsis with hypotension/shock and renal failure as opposed to ACS. She has no STEMI on EKG at this time. No evidence to suggest PE/dissection either. Patients son at bedside and kept up to date with findings. She does have DNR and he notes she would not wish to be intubated and likely would not want central line unless absolutely necessary. Given good peripheral access and low dose levo at the moment seems reasonable holding off on central line for now. Impression: Septic shock, UTI, Acute renal failure Critical Care Time: I have personally spent greater than 80 minutes of critical care time in the direct management of this patient. Septic Shock secondary to UTI requiring rapid resusitation and IV pressors. This was a life/limb threatening event. This includes time spent evaluating patient, direct bedside care, chart review, placing orders, interpretation of diagnostic studies, discussion with consultants, and son, as well as other required patient management activities. This 80 minutes is in excess of all separately billable procedures. The scribe's documentation has been prepared under my direction and personally reviewed by me in its entirety. I confirm that the note above accurately reflects all work, treatment, procedures, and medical decision making performed by me. Beto Torres MD Impression & Plan Septic shock, UTI (urinary tract infection), Acute renal failure Past Med/Surg History Medical History CAD (coronary artery disease) (Chronic) s/p stent to LAD in 2012 In 2012, the patient was seen as an outpatient by Dr. Rodriguez, with complaint of symptoms consistent with unstable angina, she was found to have significant lateral ST segment depression on EKG and was therefore hospitalized and underwent cardiac catheterization on 07/03/13 with findings of an ulcerated culprit plaque in the first diagonal branch of the LAD with patent coronaries otherwise. Atrial fibrillation (Chronic) PAF. hospitalized once for A fib with RVR. On COUMADIN Dementia (Chronic) Polymyalgia rheumatica (Chronic) On prednisone 10mg PO daily. GERD (gastroesophageal reflux disease) (Chronic) HTN (hypertension) (Chronic) Fall (Acute) Patient reports fall was preceded by dizziness. Denies LOC. This happened last month resulting in an ER visit with large knee effusion. 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 Beliefs That Will Affect Care: None marital status: / Current Living Situation: Personal Care Facility Feels Safe at Home: Yes Smoking Status: Unknown if ever smoked Hx Alcohol Use: No Hx Substance Use: No Results & Data Vital Signs Vital Signs - 24 hr 05/16/19 03:11 05/16/19 03:19 05/16/19 04:04 Temperature 36.9 C 40.1 C H Temperature Source Oral Rectal Sepsis Recent Fever Within 48 Hours Yes Sepsis Action Taken by Nursing Physician Notified Pulse Rate 119 H Pulse Rate [Right Finger] 85 Pulse Rhythm Regular Pulse Rhythm [Right Finger] Regular Pulse Strength Normal Pulse Strength [Right Finger] Normal Respiratory Rate 22 20 Respiratory Effort / Characteristics Non-Labored Non-Labored Spontaneous Respiratory Depth Normal Normal Respiratory Pattern Regular Blood Pressure 85/55 L Blood Pressure [Right Arm] 69/48 L Blood Pressure Mean 65 Blood Pressure Mean [Right Arm] 55 Pulse Oximetry 91 92 Oxygen Delivery Method Room Air Nasal Cannula Oxygen Flow Rate 05/16/19 04:27 05/16/19 04:40 05/16/19 04:54 Temperature 38.5 C H Temperature Source Rectal Sepsis Recent Fever Within 48 Hours Sepsis Action Taken by Nursing Pulse Rate Pulse Rate [Right Finger] 87 Pulse Rhythm Pulse Rhythm [Right Finger] Regular Pulse Strength Pulse Strength [Right Finger] Normal Respiratory Rate 20 Respiratory Effort / Characteristics Non-Labored Spontaneous Respiratory Depth Normal Respiratory Pattern Blood Pressure Blood Pressure [Right Arm] 91/50 L Blood Pressure Mean Blood Pressure Mean [Right Arm] 63 Pulse Oximetry 97 97 Oxygen Delivery Method Nasal Cannula Nasal Cannula Oxygen Flow Rate 2 2 05/16/19 05:32 05/16/19 05:52 Temperature 37.7 C H Temperature Source Rectal Sepsis Recent Fever Within 48 Hours Sepsis Action Taken by Nursing Pulse Rate Pulse Rate [Right Finger] 89 89 Pulse Rhythm Pulse Rhythm [Right Finger] Regular Pulse Strength Pulse Strength [Right Finger] Normal Respiratory Rate 20 20 Respiratory Effort / Characteristics Non-Labored Spontaneous Respiratory Depth Normal Respiratory Pattern Regular Blood Pressure Blood Pressure [Right Arm] 102/65 109/71 Blood Pressure Mean Blood Pressure Mean [Right Arm] 77 83 Pulse Oximetry 97 96 Oxygen Delivery Method Room Air Oxygen Flow Rate Home Medications Current Medication List: was personally reviewed by me Laboratory Data Attestation: I reviewed the patient's lab results. Result diagrams: 05/16/19 03:14 05/16/19 03:14 Lab Results 05/16/19 05/16/19 05/16/19 Range/Units 03:14 03:14 03:14 WBC 20.83 H (4.8-10.8) K/uL RBC 4.66 (4.2-5.4) M/uL Hgb 15.2 (12.0-16.0) g/dL Hct 44.8 (37-47) % MCV 96.1 (80-100) fL MCH 32.6 (25-34) pg MCHC 33.9 (32-36) g/dL RDW Std Deviation 54.7 H (36.4-46.3) fL RDW Coeff of Debbie 15.7 H (11.5-14.5) % Plt Count 212 (130-400) K/uL MPV 9.9 (7.4-10.4) fL Immature Gran % (Auto) 1.5 % Neut % (Auto) 87.2 % Lymph % (Auto) 10.0 % Butts % (Auto) 1.2 % Eos % (Auto) 0.0 % Baso % (Auto) 0.1 % Immature Gran # (Auto) 0.31 H (0.00-0.02) K/uL Neut # (Auto) 18.14 H (1.4-6.5) K/uL Lymph # (Auto) 2.09 (1.2-3.4) K/uL Butts # (Auto) 0.26 (0.11-0.59) K/uL Eos # (Auto) 0.00 (0-0.5) K/uL Baso # (Auto) 0.03 (0-0.2) K/uL PT (9.0-12.0) Seconds INR (0.9-1.1) APTT (21.0-31.0) Seconds PTT Ratio Sodium 140 (136-145) mmol/L Potassium 3.4 L (3.5-5.1) mmol/L Chloride 107 (98-107) mmol/L Carbon Dioxide 22 (21-32) mmol/L Anion Gap 11.0 (3-11) BUN 21 H (7-18) mg/dl Creatinine 1.59 H (0.6-1.2) mg/dl Est Cr Clr Drug Dosing Not Reportable Est GFR ( Amer) 33.3 Est GFR (Non-Af Amer) 28.7 BUN/Creatinine Ratio 13.4 (10-20) Glucose 101 H (70-99) mg/dl Lactate 6.3 H* (0.4-2.0) mmol/L Calcium 9.3 (8.5-10.1) mg/dl Magnesium 1.9 (1.8-2.4) mg/dl Total Bilirubin 1.5 H (0.2-1) mg/dl Direct Bilirubin 0.7 H (0-0.2) mg/dl AST 41 H (15-37) U/L ALT 36 (12-78) U/L Alkaline Phosphatase 132 H (45-117) U/L Troponin I 5.420 H* (0-0.045) ng/ml Total Protein 7.4 (6.4-8.2) gm/dl Albumin 2.9 L (3.4-5.0) gm/dl Lipase 34 L (73-393) U/L Procalcitonin (0-0.5) ng/ml Urine Color Urine Appearance (Clear) Urine pH (4.5-7.5) Ur Specific [place] (1.000-1.030) Urine Protein (Negative) Urine Glucose (UA) (Negative) Urine Ketones (Negative) Urine Blood (Negative) Urine Nitrite (Negative) Urine Bilirubin (Negative) Urine Urobilinogen (Negative) Ur Leukocyte Esterase (Negative) Urine WBC (Auto) (0-5) /hpf Urine RBC (Auto) (0-4) /hpf U Hyaline Cast (Auto) (0-5) /lpf U Epithel Cells (Auto) (0-5) /lpf Urine Bacteria (Auto) (Negative) Urine Yeast Digoxin (0.8-2.0) ng/ml 05/16/19 05/16/19 05/16/19 Range/Units 03:14 03:14 03:14 WBC (4.8-10.8) K/uL RBC (4.2-5.4) M/uL Hgb (12.0-16.0) g/dL Hct (37-47) % MCV (80-100) fL MCH (25-34) pg MCHC (32-36) g/dL RDW Std Deviation (36.4-46.3) fL RDW Coeff of Debbie (11.5-14.5) % Plt Count (130-400) K/uL MPV (7.4-10.4) fL Immature Gran % (Auto) % Neut % (Auto) % Lymph % (Auto) % Butts % (Auto) % Eos % (Auto) % Baso % (Auto) % Immature Gran # (Auto) (0.00-0.02) K/uL Neut # (Auto) (1.4-6.5) K/uL Lymph # (Auto) (1.2-3.4) K/uL Butts # (Auto) (0.11-0.59) K/uL Eos # (Auto) (0-0.5) K/uL Baso # (Auto) (0-0.2) K/uL PT 12.7 H (9.0-12.0) Seconds INR 1.3 H (0.9-1.1) APTT 28.5 (21.0-31.0) Seconds PTT Ratio 1.1 Sodium (136-145) mmol/L Potassium (3.5-5.1) mmol/L Chloride (98-107) mmol/L Carbon Dioxide (21-32) mmol/L Anion Gap (3-11) BUN (7-18) mg/dl Creatinine (0.6-1.2) mg/dl Est Cr Clr Drug Dosing Est GFR ( Amer) Est GFR (Non-Af Amer) BUN/Creatinine Ratio (10-20) Glucose (70-99) mg/dl Lactate (0.4-2.0) mmol/L Calcium (8.5-10.1) mg/dl Magnesium (1.8-2.4) mg/dl Total Bilirubin (0.2-1) mg/dl Direct Bilirubin (0-0.2) mg/dl AST (15-37) U/L ALT (12-78) U/L Alkaline Phosphatase (45-117) U/L Troponin I (0-0.045) ng/ml Total Protein (6.4-8.2) gm/dl Albumin (3.4-5.0) gm/dl Lipase (73-393) U/L Procalcitonin 37.37 H (0-0.5) ng/ml Urine Color Urine Appearance (Clear) Urine pH (4.5-7.5) Ur Specific [place] (1.000-1.030) Urine Protein (Negative) Urine Glucose (UA) (Negative) Urine Ketones (Negative) Urine Blood (Negative) Urine Nitrite (Negative) Urine Bilirubin (Negative) Urine Urobilinogen (Negative) Ur Leukocyte Esterase (Negative) Urine WBC (Auto) (0-5) /hpf Urine RBC (Auto) (0-4) /hpf U Hyaline Cast (Auto) (0-5) /lpf U Epithel Cells (Auto) (0-5) /lpf Urine Bacteria (Auto) (Negative) Urine Yeast Digoxin 0.7 L (0.8-2.0) ng/ml 05/16/19 Range/Units 03:16 WBC (4.8-10.8) K/uL RBC (4.2-5.4) M/uL Hgb (12.0-16.0) g/dL Hct (37-47) % MCV (80-100) fL MCH (25-34) pg MCHC (32-36) g/dL RDW Std Deviation (36.4-46.3) fL RDW Coeff of Debbie (11.5-14.5) % Plt Count (130-400) K/uL MPV (7.4-10.4) fL Immature Gran % (Auto) % Neut % (Auto) % Lymph % (Auto) % Butts % (Auto) % Eos % (Auto) % Baso % (Auto) % Immature Gran # (Auto) (0.00-0.02) K/uL Neut # (Auto) (1.4-6.5) K/uL Lymph # (Auto) (1.2-3.4) K/uL Butts # (Auto) (0.11-0.59) K/uL Eos # (Auto) (0-0.5) K/uL Baso # (Auto) (0-0.2) K/uL PT (9.0-12.0) Seconds INR (0.9-1.1) APTT (21.0-31.0) Seconds PTT Ratio Sodium (136-145) mmol/L Potassium (3.5-5.1) mmol/L Chloride (98-107) mmol/L Carbon Dioxide (21-32) mmol/L Anion Gap (3-11) BUN (7-18) mg/dl Creatinine (0.6-1.2) mg/dl Est Cr Clr Drug Dosing Est GFR ( Amer) Est GFR (Non-Af Amer) BUN/Creatinine Ratio (10-20) Glucose (70-99) mg/dl Lactate (0.4-2.0) mmol/L Calcium (8.5-10.1) mg/dl Magnesium (1.8-2.4) mg/dl Total Bilirubin (0.2-1) mg/dl Direct Bilirubin (0-0.2) mg/dl AST (15-37) U/L ALT (12-78) U/L Alkaline Phosphatase (45-117) U/L Troponin I (0-0.045) ng/ml Total Protein (6.4-8.2) gm/dl Albumin (3.4-5.0) gm/dl Lipase (73-393) U/L Procalcitonin (0-0.5) ng/ml Urine Color Dark Yellow Urine Appearance Turbid A (Clear) Urine pH 8.0 H (4.5-7.5) Ur Specific [place] 1.015 (1.000-1.030) Urine Protein 3+ H (Negative) Urine Glucose (UA) Negative (Negative) Urine Ketones Trace H (Negative) Urine Blood 2+ H (Negative) Urine Nitrite Negative (Negative) Urine Bilirubin Negative (Negative) Urine Urobilinogen Negative (Negative) Ur Leukocyte Esterase 1+ H (Negative) Urine WBC (Auto) >30 H (0-5) /hpf Urine RBC (Auto) 0-4 (0-4) /hpf U Hyaline Cast (Auto) 0 (0-5) /lpf U Epithel Cells (Auto) 20-30 H (0-5) /lpf Urine Bacteria (Auto) 4+ H (Negative) Urine Yeast Not Reportable Digoxin (0.8-2.0) ng/ml Administered Medications Norepinephrine Bitartrate 8 mg (/ Dextrose) 508 mls @ 0 mls/hr IV .Q0M [facility]; Protocol Stop: 06/15/19 04:14 Last Admin: 05/16/19 04:22 Dose: 0.1 mcg/kg/min, 33.7 mls/hr Documented by: [id number] Cosigned by: [id number] Sodium Chloride (Nss 1000ml) 1,000 mls @ 150 mls/hr IV .Q6H40M DARRELL Stop: 06/15/19 05:29 Last Admin: 05/16/19 05:27 Dose: 150 mls/hr Documented by: [id number] Discontinued Medications Hydrocortisone Sodium Succinate (Solu-Cortef) 100 mg IV NOW STA Stop: 05/16/19 04:09 Last Admin: 05/16/19 04:12 Dose: 100 mg Documented by: [id number] Acetaminophen (Ofirmev) 1,000 mg in 100 mls @ 400 mls/hr IV NOW STA Stop: 05/16/19 03:27 Last Infusion: 05/16/19 03:58 Dose: 0 mls/hr Documented by: [id number] Admin: 05/16/19 03:33 Dose: 400 mls/hr Documented by: [id number] Sodium Chloride (Nss 1000ml) 1,000 mls @ 999 mls/hr IV .Q1H1M ONE Stop: 05/16/19 04:13 Last Infusion: 05/16/19 04:34 Dose: 0 mls/hr Documented by: [id number] Admin: 05/16/19 03:32 Dose: 999 mls/hr Documented by: [id number] Vancomycin HCl 1,750 mg/ (Sodium Chloride) 535 mls @ 200 mls/hr IV NOW ONE Stop: 05/16/19 06:04 Last Admin: 05/16/19 04:04 Dose: 200 mls/hr Documented by: [id number] Piperacillin Sod/Tazobactam Sod (Zosyn) 4.5 gm in 120 mls @ 240 mls/hr IV NOW ONE Stop: 05/16/19 03:53 Last Infusion: 05/16/19 04:26 Dose: 0 mls/hr Documented by: [id number] Admin: 05/16/19 03:48 Dose: 240 mls/hr Documented by: [id number] Sodium Chloride (Nss 1000ml) 1,000 mls @ 999 mls/hr IV .Q1H1M ONE Stop: 05/16/19 04:33 Last Infusion: 05/16/19 04:53 Dose: 0 mls/hr Documented by: [id number] Admin: 05/16/19 03:48 Dose: 999 mls/hr Documented by: [id number] Sodium Chloride (Nss 1000ml) 500 mls @ 999 mls/hr IV .Q31M ONE Stop: 05/16/19 04:45 Last Infusion: 05/16/19 04:55 Dose: 0 mls/hr Documented by: [id number] Admin: 05/16/19 04:26 Dose: 999 mls/hr Documented by: [id number] Ondansetron HCl (Zofran) 4 mg IV NOW STA Stop: 05/16/19 03:14 Last Admin: 05/16/19 03:33 Dose: 4 mg Documented by: [id number] Piperacillin Sod/Tazobactam Sod (Zosyn) Confirm Administered Dose 4.5 gm .ROUTE .STK-MED ONE Stop: 05/16/19 03:28 Last Admin: 05/16/19 04:04 Dose: Not Given Documented by: [id number] Imaging Data Attestation: I personally reviewed and interpreted this imaging study as follows: My Impression: ECG Data Attestation: I personally reviewed and interpreted this ECG as follows: Indication: altered mental status, tachycardia and vomiting Blood Pressure Blood Pressure Findings: Low blood pressure Blood Pressure Disposition: further management by hospitalist Discharge Plan Visit Data Chief Complaint: Illness Stated Complaint: N/V ED Provider: Beto Torers Discharge Problem: Septic shock, UTI (urinary tract infection), Acute renal failure Patient Disposition: Being Evaluated by Hospitalist Discharge Instructions Interventions: ED Discharge Assessment Last Done: 05/16/19 06:14 Forms Stand Alone Forms: My [facility] Prescriptions Prescriptions: No Action prednisone 10 mg Tablet 10 mg PO DAILY RF: 0 donepezil 5 mg Tablet 5 mg PO DAILY RF: 0 citalopram 40 mg Tablet 20 mg PO DAILY RF: 0 sennosides-docusate sodium [Senna-S] 8.6-50 mg Tablet 1 tab PO DAILY RF: 0 cyanocobalamin (vitamin B-12) [Vitamin B-12] 1,000 mcg Tablet 1,000 mcg PO DAILY RF: 0 potassium chloride [Klor-Con 10] 10 mEq Tablet Extended Release 10 meq PO BID RF: 0 aspirin 81 mg Tablet,Delayed Release (Dr/Ec) 81 mg PO DAILY RF: 0 calcium carbonate [Oysco-500] 500 mg calcium (1,250 mg) Tablet 500 mg PO QAM RF: 0 docusate sodium [Colace] 100 mg Capsule 100 mg PO BID RF: 0 digoxin 125 mcg Tablet 0.125 mg PO DAILY RF: 0 furosemide [Lasix] 20 mg Tablet 20 mg PO DAILY RF: 0 alum-mag hydroxide-simeth [Mi-Acid] 200-200-20 mg/5 mL Suspension 30 ml PO QID PRN (Reason: Heartburn) RF: 0 polyethylene glycol 3350 [Miralax] 17 gram/dose Powder 17 g PO DAILY RF: 0 diltiazem HCl 30 mg Tablet 30 mg PO QID RF: 0 cranberry 450 mg Tablet 450 mg PO BID RF: 0 cholecalciferol (vitamin D3) [Vitamin D3] 1,000 unit Tablet 1,000 unit PO DAILY RF: 0 acetaminophen 650 mg Suppository 650 mg IN Q6H PRN (Reason: pain/fever) RF: 0 bisacodyl [Dulcolax (bisacodyl)] 10 mg Suppository 10 mg IN DAILY PRN (Reason: Constipation) RF: 0 ferrous gluconate 324 mg (38 mg iron) Tablet 324 mg PO TID RF: 0 promethazine 25 mg Suppository 25 mg IN Q6H PRN (Reason: Nausea) RF: 0 tramadol 50 mg Tablet 50 mg PO Q6H PRN (Reason: Pain) RF: 0 Referrals Referrals: Myesha Rojas [Primary Care Provider] - Discharge Problem: UTI (urinary tract infection) Qualifiers: Urinary tract infection type: site unspecified Hematuria presence: without hematuria Qualified Code(s): N39.0 - Urinary tract infection, site not specified Acute renal failure Qualifiers: Acute renal failure type: unspecified Qualified Code(s): N17.9 - Acute kidney failure, unspecified The scribe's documentation has been prepared under my direction and personally reviewed by me in its entirety. I confirm that the note above accurately reflects all work, treatment, procedures, and medical decision making performed by me.
[2019-05-16] MEDS ORDERED: VANCOMYCIN HCL 1,000 MG in SODIUM CHLORIDE 0.9% 250 ML IV SCH (06:43)
[2019-05-16] MEDS ORDERED: ALUMINUM/MAGNESIUM/SIMETH (MAALOX MAX) 30 ML UDC PO PRN (06:43)
[2019-05-16] MEDS ORDERED: BISACODYL 10 MG SUPP PR PRN (06:43)
[2019-05-16] MEDS ORDERED: TRAMADOL HCL 50 MG TABLET PO PRN (06:43)
[2019-05-16] MEDS ORDERED: ICU PROTOCOL FOR HYPERGLYCEMIA PRN (06:43)
[2019-05-16] MEDS ORDERED: D5W AND LACTATED RINGERS 1,000 ML IV SCH (06:43)
[2019-05-16] MEDS ORDERED: PIPERACILLIN/TAZOBACTAM 3.375 GM in DEXTROSE 5% 100 ML IV SCH ×2 (06:43→09:00)
--- NOTE | 2019-05-16 07:21 | XRay Report ---
XR chest 1V portable CLINICAL HISTORY: sepsis FEVER COMPARISON STUDY: 09/17/2018 FINDINGS: The cardiac and mediastinal contours remain stable. Slight right hilar prominence is likely vascular. There is no overt failure. There are no significant pleural effusions. Slight prominence o f basilar markings are likely atelectatic although an infectious/inflammatory processes could appear similar. Postsurgical changes involve the right shoulder.[ IMPRESSION: AP portable study. No evidence of lobar consolidation. Slight prominence the basilar alley ings statistically atelectatic Electronically signed by: Osman Winchester M.D. 05/16/2019 7:20 AM
[2019-05-16] MEDS: DOCUSATE SODIUM/SENNA 50/8.6MG TAB PO SCH (08:01)
[2019-05-16] MEDS: POLYETHYLENE (MIRALAX) 17 GM PACK PO SCH (08:01)
[2019-05-16] MEDS: ASPIRIN 81 MG ECTAB PO SCH (08:01)
[2019-05-16] MEDS: CYANOCOBALAMIN 500 MCG TABLET (VITAMIN B-12) PO SCH (08:01)
[2019-05-16] MEDS: DOCUSATE SODIUM 100 MG CAP PO SCH ×2 (08:02→20:07)
[2019-05-16] MEDS: CITALOPRAM 40 MG TAB PO SCH (08:02)
--- NOTE | 2019-05-16 11:22 | Critical Care Consultation ---
Date of Consultation May 16, 2019 Assessment & Plan (1) Altered mental status: Reason Critically Ill: 88-year-old female DNR/DNI with septic shock presumptively secondary to UTI PLAN: Neuro: Acute metabolic encephalopathy -Should improve as sepsis improves Dementia -Known at baseline Frequent falls -Previously agreed to discontinue systemic anticoagulation secondary to frequent falls Resp: No oxygen requirement at this time -No evidence to suspect pneumonia CV: Hypotension: Improving Elevated troponins -Doubt ACS, weaned off Levophed at 9 AM Atrial fibrillation -Digoxin level barely out of range on the low side -Rate controlled: Bedside monitor appears to be normal sinus rhythm Fluids/Renal: Acute kidney injury -Continue gentle hydration -Recheck BMP at 1400 ID: Severe sepsis -Discontinuing vancomycin as this does not appear to be a MRSA pneumonia -Previous E. coli urinary tract infections which were pansensitive -Given improvement will de-escalate to Rocephin GI/Nutrition: Heart healthy diet -Patient no longer hypotensive nor on vasoactive medication Heme: Baseline anemia -Suspect hemoconcentration on admission DVT prophylaxis: Heparin 5000 twice daily Endocrine: ICU hyperglycemia protocol Chronic steroid use -Discontinue stress dose steroids moving forward reinstitute daily steroid: 10 mg prednisone daily Vascular access: Peripheral IVs Code Status: DNR/DNI I have personally spent 40 minutes of critical care time in the direct management of this patient. This is a life/limb threatening event. This includes time spent evaluating patient, direct bedside care, chart review, placing orders, interpretation of diagnostic studies, discussion with consultants, patient, and/or family members regarding treatment decisions, as well as other required patient management activities. This time is exclusive of all separately billable procedures, and teaching time and separate from and in addition to any other critical care service time. If on repeat analysis patient has cleared her lactate and remains asymptomatic off pressors would consider downgrade out of ICU as patient is DNR/DNI and no longer receiving vasoactive medications. (2) Septic shock: (3) UTI (urinary tract infection): (4) Acute renal failure: History of Present Illness Attending Physician: Vijay Rosado MD Allergies Allergy/AdvReac Type Severity Reaction Status Date / Time nitrofurantoin Allergy Intermediate MACROBID-HI Verified 05/16/19 03:27 VES colchicine Allergy Unknown UNKNOWN Verified 05/16/19 03:27 zolpidem AdvReac Mild CONFUSION, Verified 05/16/19 03:27 HALLUCINATIONS Home Medications Home Medications Medication Instructions Recorded Confirmed Type alum-mag hydroxide-simeth [Mi-Acid] 30 ml PO QID PRN 07/28/18 05/16/19 History aspirin 81 mg PO DAILY 07/28/18 05/16/19 History calcium carbonate [Oysco-500] 500 mg PO QAM 07/28/18 05/16/19 History cholecalciferol (vitamin D3) 1,000 unit PO DAILY 07/28/18 05/16/19 History [Vitamin D3] citalopram 20 mg PO DAILY 07/28/18 05/16/19 History cranberry 450 mg PO BID 07/28/18 05/16/19 History cyanocobalamin (vitamin B-12) 1,000 mcg PO DAILY 07/28/18 05/16/19 History [Vitamin B-12] digoxin 0.125 mg PO DAILY 07/28/18 05/16/19 History diltiazem HCl 30 mg PO QID 07/28/18 05/16/19 History docusate sodium [Colace] 100 mg PO BID 07/28/18 05/16/19 History donepezil 5 mg PO DAILY 07/28/18 05/16/19 History furosemide [Lasix] 20 mg PO DAILY 07/28/18 05/16/19 History polyethylene glycol 3350 [Miralax] 17 g PO DAILY 07/28/18 05/16/19 History potassium chloride [Klor-Con 10] 10 meq PO BID 07/28/18 05/16/19 History prednisone 10 mg PO DAILY 07/28/18 05/16/19 History sennosides-docusate sodium 1 tab PO DAILY 07/28/18 05/16/19 History [Senna-S] acetaminophen 650 mg VT Q6H PRN 05/16/19 05/16/19 History bisacodyl [Dulcolax (bisacodyl)] 10 mg VT DAILY PRN 05/16/19 05/16/19 History ferrous gluconate 324 mg PO TID 05/16/19 05/16/19 History promethazine 25 mg VT Q6H PRN 05/16/19 05/16/19 History tramadol 50 mg PO Q6H PRN 05/16/19 05/16/19 History Patient History Medical History CAD (coronary artery disease) (Chronic) s/p stent to LAD in 2012 In 2012, the patient was seen as an outpatient by Dr. Rodriguez, with complaint of symptoms consistent with unstable angina, she was found to have significant lateral ST segment depression on EKG and was therefore hospitalized and underwent cardiac catheterization on 07/03/13 with findings of an ulcerated culprit plaque in the first diagonal branch of the LAD with patent coronaries otherwise. Atrial fibrillation (Chronic) PAF. hospitalized once for A fib with RVR. On COUMADIN Dementia (Chronic) Polymyalgia rheumatica (Chronic) On prednisone 10mg PO daily. GERD (gastroesophageal reflux disease) (Chronic) HTN (hypertension) (Chronic) Fall (Acute) Patient reports fall was preceded by dizziness. Denies LOC. This happened last month resulting in an ER visit with large knee effusion. Basal cell carcinoma of face (Resolved Unknown) NSTEMI (non-ST elevated myocardial infarction) (Resolved) 2012 Alzheimer disease (Chronic) NSTEMI (non-ST elevated myocardial infarction) (Resolved) Anemia Surgical History History of total hip arthroplasty History of colonoscopy History of spinal fusion Family History Other Family history of high blood pressure Social History Preferred Language: Austrian Communication Ability: Effective Transportation Planner Required: Yes Beliefs That Will Affect Care: None marital status: / Current Living Situation: Personal Care Facility Other Information That Helps Us Care for You: No Feels Safe at Home: Yes Safety Concerns: Feels Safe At This Time Smoking Status: Never smoker Do You Dip or Chew Tobacco: No ; Second Hand Exposure: No ; Hx Alcohol Use: No Hx Substance Use: No Results & Data Vital Signs (Past 12 Hours) Vital Signs Temp Pulse Pulse Resp BP BP BP 05/16/19 11:00 36.5 C 69 16 100/59 L 05/16/19 10:45 72 18 102/69 05/16/19 10:30 65 23 92/65 L 05/16/19 10:15 67 16 95/67 L 05/16/19 10:00 74 16 97/68 L 05/16/19 09:47 70 18 93/61 L 05/16/19 09:30 71 16 102/74 05/16/19 09:15 74 18 97/67 L 05/16/19 09:00 75 18 102/76 05/16/19 08:45 75 18 106/71 05/16/19 08:30 77 18 102/72 05/16/19 08:15 77 16 98/63 L 05/16/19 08:00 76 20 90/79 L 05/16/19 07:45 80 18 112/68 05/16/19 07:30 36.4 C L 87 18 115/78 05/16/19 07:00 89 45 H 131/85 05/16/19 06:45 36.8 C 86 20 104/62 05/16/19 06:34 36.6 C 80 15 104/62 05/16/19 05:52 37.7 C H 89 20 109/71 05/16/19 05:32 89 20 102/65 05/16/19 04:54 38.5 C H 05/16/19 04:40 87 20 91/50 L 05/16/19 04:27 05/16/19 04:04 85 20 69/48 L 05/16/19 03:19 40.1 C H 05/16/19 03:11 36.9 C 119 H 22 85/55 L Pulse Ox 05/16/19 11:00 97 05/16/19 10:45 95 05/16/19 10:30 96 05/16/19 10:15 96 05/16/19 10:00 94 05/16/19 09:47 96 05/16/19 09:30 95 05/16/19 09:15 95 05/16/19 09:00 95 05/16/19 08:45 96 05/16/19 08:30 95 05/16/19 08:15 95 05/16/19 08:00 93 05/16/19 07:45 93 05/16/19 07:30 94 05/16/19 07:00 96 05/16/19 06:45 98 05/16/19 06:34 96 05/16/19 05:52 96 05/16/19 05:32 97 05/16/19 04:54 05/16/19 04:40 97 05/16/19 04:27 97 05/16/19 04:04 92 05/16/19 03:19 05/16/19 03:11 91 PG Care Time/CCT Total # of Minutes Spent Total Time Spent: 40 Total Time Spent with Patient: Total time spent is greater than 50% in coordination of care (as documented) at patient's floor/unit and/or counseling patient: (1) UTI (urinary tract infection) Hematuria presence: without hematuria Urinary tract infection type: site unspecified Qualified Code(s): N39.0 - Urinary tract infection, site not specified (2) Acute renal failure Acute renal failure type: unspecified Qualified Code(s): N17.9 - Acute kidney failure, unspecified (3) Altered mental status Altered mental status type: disorientation Qualified Code(s): R41.0 - Disorientation, unspecified
[2019-05-16] MEDS: NORMOSOL-R 1,000 ML IV SCH (11:43)
[2019-05-16] MEDS ORDERED: THIAMINE HCL 200 MG in SODIUM CHLORIDE 0.9% 50 ML IV ONE (12:00)
[2019-05-16] MEDS: predniSONE 10 MG TABLET PO SCH (12:49)
[2019-05-16] MEDS: cefTRIAXone SODIUM 2,000 MG in DEXTROSE 5% 50 ML IV SCH (12:50)
[2019-05-16 13:45] LABS: BUN Creatinine Ratio 13.5 (10-20); Calcium 7.9 mg/dl (8.5-10.1); Est GFR (Non-African American) 29.4; Potassium 3.4 mmol/L (3.5-5.1)
[2019-05-16 13:53] LABS: Troponin I 6.11 ng/ml (0-0.045)
[2019-05-16] MEDS ORDERED: HYDROCORTISONE SOD 100 MG in SYRINGE 0 ML IV SCH (16:00)
[2019-05-16] MEDS: HEPARIN SOD 5,000 UNIT/0.5 ML VIAL SQ SCH (20:08)
[2019-05-16] MEDS: ACETAMINOPHEN 650 MG SUPP PR PRN (23:19)
[2019-05-17] MEDS: NORMOSOL-R 1,000 ML IV SCH ×2 (00:10→12:36)
[2019-05-17] MEDS ORDERED: VANCOMYCIN HCL 1,250 MG in SODIUM CHLORIDE 0.9% 250 ML IV SCH (02:00)
[2019-05-17] MEDS: ACETAMINOPHEN 650 MG SUPP PR PRN (05:07)
[2019-05-17 05:11] LABS: INR 1.4 (0.9-1.1)
[2019-05-17 05:19] LABS: BUN Creatinine Ratio 18.3 (10-20); Calcium 7.6 mg/dl (8.5-10.1); Creatinine Clr Calc Pharmacy 38.6 ml/min; Est GFR (African American) 48.2; Est GFR (Non-African American) 41.6; Potassium 3.3 mmol/L (3.5-5.1)
[2019-05-17 05:27] LABS: Troponin I 7.14 ng/ml (0-0.045)
[2019-05-17 05:57] LABS: Hemoglobin 10.9 g/dL (12.0-16.0); Mean Corpuscular Volume 95.4 fL (80-100); Mean Platelet Volume 9.8 fL (7.4-10.4); Platelet Count 158 K/uL (130-400); RDW Coefficient of Variation 16.3 % (11.5-14.5); RDW Standard Deviation 57.3 fL (36.4-46.3); Red Blood Count 3.46 M/uL (4.2-5.4); White Blood Count 23.02 K/uL (4.8-10.8)
[2019-05-17 05:58] LABS: Basophils # (auto) 0.02 K/uL (0-0.2); Basophils % (auto) 0.1 %; Echinocytes 1+; Eosinophils # (auto) 0.01 K/uL (0-0.5); Immature Granulocytes # (auto) 0.47 K/uL (0.00-0.02); Lymphocytes # (auto) 1.09 K/uL (1.2-3.4); Lymphocytes % (auto) 4.7 %; Monocytes # (auto) 1.13 K/uL (0.11-0.59); Monocytes % (auto) 4.9 %; Neutrophils % (auto) 88.3 %
--- NOTE | 2019-05-17 07:45 | Critical Care Progress Note ---
Date of Service May 17, 2019 Assessment & Plan (1) Altered mental status: Reason Critically Ill: 88-year-old female DNR/DNI with septic shock with gram-negative bacteremia PLAN: Neuro: Acute metabolic encephalopathy: Improved Dementia -Known at baseline Frequent falls -Previously agreed to discontinue systemic anticoagulation secondary to frequent falls Resp: No oxygen requirement at this time -No evidence to suspect pneumonia CV: Hypotension: Resolved Elevated troponins -Doubt ACS, weaned off Levophed for greater than 24 hours Atrial fibrillation -Digoxin level barely out of range on the low side -Rate controlled: Bedside monitor appears to be normal sinus rhythm Fluids/Renal: Acute kidney injury: Improved, still meets criteria of acute kidney injury not back to baseline -Continue gentle hydration Hypokalemia -Supplemental potassium given ID: Severe sepsis -Discontinuing vancomycin: DNA probe is not MRSA, gram-positive cocci is in 1 bottle suspect contaminant versus enterococcus species -Previous E. coli urinary tract infections which were pansensitive, patient significantly improved -Continue Rocephin as single agent -Repeat blood cultures -Continue IV antibiotics secondary to febrile response, anticipate 7-day duration of treatment from negative blood culture. -Limited echo for obvious valvular pathology and episode of hypotension with elevated troponins again I believe this is all secondary to urinary tract infection, this would change antibiotic treatment duration GI/Nutrition: Heart healthy diet -Tolerating diet Heme: Baseline anemia -Suspect hemoconcentration on admission DVT prophylaxis: Heparin 5000 twice daily Endocrine: ICU hyperglycemia protocol Chronic steroid use -Discontinue stress dose steroids moving forward reinstitute daily steroid: 10 mg prednisone daily Vascular access: Peripheral IVs Code Status: DNR/DNI I have personally spent 35 minutes of critical care time in the direct management of this patient. This is a life/limb threatening event. This includes time spent evaluating patient, direct bedside care, chart review, placing orders, interpretation of diagnostic studies, discussion with consultants, patient, and/or family members regarding treatment decisions, as well as other required patient management activities. This time is exclusive of all separately billable procedures, and teaching time and separate from and in addition to any other critical care service time. (2) Septic shock: (3) UTI (urinary tract infection): (4) Acute renal failure: (5) Gram-negative bacteremia: Present on Admission?: Yes (6) Elevated troponin I level: Present on Admission?: Yes Subjective Overnight there was notification of positive blood cultures, gram negatives as well as gram-positive cocci in clusters. Patient was reinitiated on vancomycin and had 2 episodes of being febrile. Currently patient is asymptomatic denies chest pain denies shortness of breath. Review of Systems Review of Systems: All systems reviewed & are unremarkable except as noted in HPI & below Physical Exam Physical Exam: General: Alert. nontoxic. Skin: Warm, dry, Head: Atraumatic Ears, nose, mouth and throat: airway patent Cardiovascular: Normal peripheral perfusion Respiratory: no respiratory distress Gastrointestinal: Non distended Musculoskeletal: No deformity Results & Data Vital Signs (Past 12 Hours) Vital Signs Temp Pulse Resp BP Pulse Ox 05/17/19 06:00 90 24 106/58 L 97 05/17/19 04:00 38.1 C H 92 H 23 145/84 H 97 05/17/19 02:00 86 24 134/64 96 05/17/19 00:00 38.3 C H 87 24 141/75 H 99 05/16/19 22:00 82 20 136/69 96 05/16/19 20:00 37.1 C 83 24 108/66 97 05/17/19 05/17/19 05/17/19 Range/Units 04:28 04:28 04:28 WBC (4.8-10.8) K/uL RBC (4.2-5.4) M/uL Hgb (12.0-16.0) g/dL Hct (37-47) % MCV (80-100) fL MCH (25-34) pg MCHC (32-36) g/dL RDW Std Deviation (36.4-46.3) fL RDW Coeff of Debbie (11.5-14.5) % Plt Count (130-400) K/uL MPV (7.4-10.4) fL Immature Gran % (Auto) % Neut % (Auto) % Lymph % (Auto) % [place] % (Auto) % Eos % (Auto) % Baso % (Auto) % Immature Gran # (Auto) (0.00-0.02) K/uL Neut # (Auto) (1.4-6.5) K/uL Lymph # (Auto) (1.2-3.4) K/uL [place] # (Auto) (0.11-0.59) K/uL Eos # (Auto) (0-0.5) K/uL Baso # (Auto) (0-0.2) K/uL Echinocytes PT 14.0 H (9.0-12.0) Seconds INR 1.4 H (0.9-1.1) Sodium 142 (136-145) mmol/L Potassium 3.3 L (3.5-5.1) mmol/L Chloride 110 H (98-107) mmol/L Carbon Dioxide 25 (21-32) mmol/L Anion Gap 7.0 (3-11) BUN 21 H (7-18) mg/dl Creatinine 1.17 D (0.6-1.2) mg/dl Est Cr Clr Drug Dosing 38.6 ml/min Est GFR ( Amer) 48.2 Est GFR (Non-Af Amer) 41.6 BUN/Creatinine Ratio 18.3 (10-20) Glucose 86 (70-99) mg/dl POC Glucose (70-99) Lactate 1.6 (0.4-2.0) mmol/L Calcium 7.6 L (8.5-10.1) mg/dl Troponin I 7.140 H* (0-0.045) ng/ml Nasal Screen MRSA (PCR) (Negative) Bld Cult Staph aureus PCR (Negative) Blood Culture MRSA PCR (Negative) 05/17/19 05/16/19 05/16/19 Range/Units 04:28 Unknown 20:13 WBC 23.02 H (4.8-10.8) K/uL RBC 3.46 L (4.2-5.4) M/uL Hgb 10.9 L D (12.0-16.0) g/dL Hct 33.0 L (37-47) % MCV 95.4 (80-100) fL MCH 31.5 (25-34) pg MCHC 33.0 (32-36) g/dL RDW Std Deviation 57.3 H (36.4-46.3) fL RDW Coeff of Debbie 16.3 H (11.5-14.5) % Plt Count 158 (130-400) K/uL MPV 9.8 (7.4-10.4) fL Immature Gran % (Auto) 2.0 % Neut % (Auto) 88.3 % Lymph % (Auto) 4.7 % [place] % (Auto) 4.9 % Eos % (Auto) 0.0 % Baso % (Auto) 0.1 % Immature Gran # (Auto) 0.47 H (0.00-0.02) K/uL Neut # (Auto) 20.30 H (1.4-6.5) K/uL Lymph # (Auto) 1.09 L (1.2-3.4) K/uL [place] # (Auto) 1.13 H (0.11-0.59) K/uL Eos # (Auto) 0.01 (0-0.5) K/uL Baso # (Auto) 0.02 (0-0.2) K/uL Echinocytes 1+ PT (9.0-12.0) Seconds INR (0.9-1.1) Sodium (136-145) mmol/L Potassium (3.5-5.1) mmol/L Chloride (98-107) mmol/L Carbon Dioxide (21-32) mmol/L Anion Gap (3-11) BUN (7-18) mg/dl Creatinine (0.6-1.2) mg/dl Est Cr Clr Drug Dosing ml/min Est GFR ( Amer) Est GFR (Non-Af Amer) BUN/Creatinine Ratio (10-20) Glucose (70-99) mg/dl POC Glucose 78 (70-99) Lactate (0.4-2.0) mmol/L Calcium (8.5-10.1) mg/dl Troponin I (0-0.045) ng/ml Nasal Screen MRSA (PCR) Positive A (Negative) Bld Cult Staph aureus PCR (Negative) Blood Culture MRSA PCR (Negative) 05/16/19 05/16/19 05/16/19 Range/Units 16:15 13:13 13:13 WBC (4.8-10.8) K/uL RBC (4.2-5.4) M/uL Hgb (12.0-16.0) g/dL Hct (37-47) % MCV (80-100) fL MCH (25-34) pg MCHC (32-36) g/dL RDW Std Deviation (36.4-46.3) fL RDW Coeff of Debbie (11.5-14.5) % Plt Count (130-400) K/uL MPV (7.4-10.4) fL Immature Gran % (Auto) % Neut % (Auto) % Lymph % (Auto) % [place] % (Auto) % Eos % (Auto) % Baso % (Auto) % Immature Gran # (Auto) (0.00-0.02) K/uL Neut # (Auto) (1.4-6.5) K/uL Lymph # (Auto) (1.2-3.4) K/uL [place] # (Auto) (0.11-0.59) K/uL Eos # (Auto) (0-0.5) K/uL Baso # (Auto) (0-0.2) K/uL Echinocytes PT (9.0-12.0) Seconds INR (0.9-1.1) Sodium 143 (136-145) mmol/L Potassium 3.4 L (3.5-5.1) mmol/L Chloride 110 H (98-107) mmol/L Carbon Dioxide 26 (21-32) mmol/L Anion Gap 7.0 (3-11) BUN 21 H (7-18) mg/dl Creatinine 1.56 H (0.6-1.2) mg/dl Est Cr Clr Drug Dosing 29.0 ml/min Est GFR ( Amer) 34.0 Est GFR (Non-Af Amer) 29.4 BUN/Creatinine Ratio 13.5 (10-20) Glucose 125 H (70-99) mg/dl POC Glucose 97 (70-99) Lactate 4.5 H* (0.4-2.0) mmol/L Calcium 7.9 L D (8.5-10.1) mg/dl Troponin I 6.110 H* (0-0.045) ng/ml Nasal Screen MRSA (PCR) (Negative) Bld Cult Staph aureus PCR (Negative) Blood Culture MRSA PCR (Negative) 05/16/19 05/16/19 05/16/19 Range/Units 08:48 07:19 03:14 WBC (4.8-10.8) K/uL RBC (4.2-5.4) M/uL Hgb (12.0-16.0) g/dL Hct (37-47) % MCV (80-100) fL MCH (25-34) pg MCHC (32-36) g/dL RDW Std Deviation (36.4-46.3) fL RDW Coeff of Debbie (11.5-14.5) % Plt Count (130-400) K/uL MPV (7.4-10.4) fL Immature Gran % (Auto) % Neut % (Auto) % Lymph % (Auto) % [place] % (Auto) % Eos % (Auto) % Baso % (Auto) % Immature Gran # (Auto) (0.00-0.02) K/uL Neut # (Auto) (1.4-6.5) K/uL Lymph # (Auto) (1.2-3.4) K/uL [place] # (Auto) (0.11-0.59) K/uL Eos # (Auto) (0-0.5) K/uL Baso # (Auto) (0-0.2) K/uL Echinocytes PT (9.0-12.0) Seconds INR (0.9-1.1) Sodium (136-145) mmol/L Potassium (3.5-5.1) mmol/L Chloride (98-107) mmol/L Carbon Dioxide (21-32) mmol/L Anion Gap (3-11) BUN (7-18) mg/dl Creatinine (0.6-1.2) mg/dl Est Cr Clr Drug Dosing ml/min Est GFR ( Amer) Est GFR (Non-Af Amer) BUN/Creatinine Ratio (10-20) Glucose (70-99) mg/dl POC Glucose (70-99) Lactate 3.5 H* (0.4-2.0) mmol/L Calcium (8.5-10.1) mg/dl Troponin I 5.260 H* (0-0.045) ng/ml Nasal Screen MRSA (PCR) (Negative) Bld Cult Staph aureus PCR Negative (Negative) Blood Culture MRSA PCR Negative (Negative) PG Care Time/CCT Total # of Minutes Spent Total Time Spent with Patient: Total time spent is greater than 50% in coordination of care (as documented) at patient's floor/unit and/or counseling patient: Critical Care Time: Yes Total Critical Care Time: 35 (1) Altered mental status Altered mental status type: disorientation Qualified Code(s): R41.0 - Disorientation, unspecified (2) UTI (urinary tract infection) Hematuria presence: without hematuria Urinary tract infection type: site unspecified Qualified Code(s): N39.0 - Urinary tract infection, site not specified (3) Acute renal failure Acute renal failure type: unspecified Qualified Code(s): N17.9 - Acute kidney failure, unspecified
[2019-05-17] MEDS: POLYETHYLENE (MIRALAX) 17 GM PACK PO SCH (07:56)
[2019-05-17] MEDS: CITALOPRAM 40 MG TAB PO SCH (07:58)
[2019-05-17] MEDS: DOCUSATE SODIUM 100 MG CAP PO SCH ×2 (08:00→20:44)
[2019-05-17] MEDS: CYANOCOBALAMIN 500 MCG TABLET (VITAMIN B-12) PO SCH (08:00)
[2019-05-17] MEDS: ASPIRIN 81 MG ECTAB PO SCH (08:00)
[2019-05-17] MEDS: HEPARIN SOD 5,000 UNIT/0.5 ML VIAL SQ SCH ×2 (08:01→20:45)
[2019-05-17] MEDS: predniSONE 10 MG TABLET PO SCH (08:01)
[2019-05-17] MEDS: DOCUSATE SODIUM/SENNA 50/8.6MG TAB PO SCH (08:01)
[2019-05-17] MEDS ORDERED: POTASSIUM CHLORIDE 20 MEQ TABCR PO ONE (09:00)
[2019-05-17] MEDS: MULTIVITAMIN TAB PO SCH (09:28)
[2019-05-17] MEDS ORDERED: PERFLUTREN LIPID MICROSPHERE (DEFINITY) IV ONE (09:30)
[2019-05-17 11:56] LABS: BUN Creatinine Ratio 19.2 (10-20); Calcium 7.8 mg/dl (8.5-10.1); Creatinine Clr Calc Pharmacy 38.5 ml/min; Est GFR (African American) 49.7; Est GFR (Non-African American) 42.9; Potassium 3.5 mmol/L (3.5-5.1)
[2019-05-17 12:05] LABS: Troponin I 5.94 ng/ml (0-0.045)
[2019-05-17] MEDS: cefTRIAXone SODIUM 2,000 MG in DEXTROSE 5% 50 ML IV SCH (14:35)
--- NOTE | 2019-05-17 15:52 | Cardiology Consultation ---
Date of Consultation May 17, 2019 Assessment & Plan (1) Gram-negative bacteremia: (2) Elevated troponin I level: Sinus rhythm and sinus tachycardia are noted on telemetry. Patient presented with unstable angina in June 2013 and underwent cardiac catheterization with a culprit ulcerated plaque in the diagonal branch of the LAD for which she underwent stenting at that time. She had since been hospitalized on one and perhaps 2 occasions for atrial fibrillation. Echocardiogram performed today reveals hyperdynamic left ventricular systolic function with a new focal apical wall motion abnormality, the mid and basal levels of the left ventricle are spared. Her echocardiographic abnormality is suggestive of either ischemia or infarct and the distal LAD coronary artery territory versus a stress-induced cardiomyopathy related to her sepsis. The patient does have a cognitive impairment, she may be however approaching her baseline mental status at this point as of 4 4 PM on 05/17/2019. She has no subjective complaints of chest discomfort or shortness of breath and is very com fortable having been started on fluid resuscitation plus IV antibiotics. She has a baseline anemia with hemoglobin at the time of discharge in August 2018 of 9.5, and most recent hemoglobin was 10.9. Given her lack of anginal complaints, and her baseline anemia, I think it is most prudent to proceed without systemic anticoagulation despite her mild elevation in troponin I. Her systolic blood pressure was a little low at 8:00 this morning with several readings in the 90 mmHg range, but this is normalized. In addition to her current treatment with aspirin, will start low-dose metoprolol. Her prior to hospital dose of diltiazem will remain on hold. Also proceed with starting a low-dose of atorvastatin given her past history of coronary heart disease. Due to her overall frailty, and dementia, I think conservative treatment for her apical wall motion abnormality is the best approach. History of Present Illness Attending Physician: Mark Anthony Pires History of Present Illness Olivia Mcguire is an 88 year old female seen in cardiology consultation per the request of Dr Owens for the evaluation of abnormal findings on echocardiogram and elevated troponin I. I actually seen the patient previously on an admission in August 2018 when she presented with a fall and was seen in perioperative cardiac consultation at that time having had operative intervention for a right proximal humeral fracture. My consultation dated 09/18/2018 documents that the patient has a history of dementia. She was not able to provide helpful history at the time of interview at that time, and the same is true today. She does however have no subjective complaints at present. The patient presented to the ED at [facility] from [facility] having been referred due to findings of fever and worsening mental status. Her maximum temperature at midnight last night was 38.3 C, her most recent temperature taken at 12 noon had improved to 37.7 C. Blood cultures performed overnight have already yielded gram-negative bacilli, anterior urinalysis is suggestive of UTI . Her troponin was elevated on presentation, and peaked at 7.14 NG per mL at 4:28 AM, with most recent measurement of 5.94 NG per mL at 10:56 AM today. EKG performed 05/16/2019 at 3:14 AM sinus tachycardia at 121 bpm with occasional PACs and mild nonspecific repolarization changes without yi ST elevation. Allergies Allergy/AdvReac Type Severity Reaction Status Date / Time nitrofurantoin Allergy Intermediate MACROBID-HI Verified 05/16/19 03:27 VES colchicine Allergy Unknown UNKNOWN Verified 05/16/19 03:27 zolpidem AdvReac Mild CONFUSION, Verified 05/16/19 03:27 HALLUCINATIONS Home Medications Home Medications Medication Instructions Recorded Confirmed Type alum-mag hydroxide-simeth [Mi-Acid] 30 ml PO QID PRN 07/28/18 05/16/19 History aspirin 81 mg PO DAILY 07/28/18 05/16/19 History calcium carbonate [Oysco-500] 500 mg PO QAM 07/28/18 05/16/19 History cholecalciferol (vitamin D3) 1,000 unit PO DAILY 07/28/18 05/16/19 History [Vitamin D3] citalopram 20 mg PO DAILY 07/28/18 05/16/19 History cranberry 450 mg PO BID 07/28/18 05/16/19 History cyanocobalamin (vitamin B-12) 1,000 mcg PO DAILY 07/28/18 05/16/19 History [Vitamin B-12] digoxin 0.125 mg PO DAILY 07/28/18 05/16/19 History diltiazem HCl 30 mg PO QID 07/28/18 05/16/19 History docusate sodium [Colace] 100 mg PO BID 07/28/18 05/16/19 History donepezil 5 mg PO DAILY 07/28/18 05/16/19 History furosemide [Lasix] 20 mg PO DAILY 07/28/18 05/16/19 History polyethylene glycol 3350 [Miralax] 17 g PO DAILY 07/28/18 05/16/19 History potassium chloride [Klor-Con 10] 10 meq PO BID 07/28/18 05/16/19 History prednisone 10 mg PO DAILY 07/28/18 05/16/19 History sennosides-docusate sodium 1 tab PO DAILY 07/28/18 05/16/19 History [Senna-S] acetaminophen 650 mg ND Q6H PRN 05/16/19 05/16/19 History bisacodyl [Dulcolax (bisacodyl)] 10 mg ND DAILY PRN 05/16/19 05/16/19 History ferrous gluconate 324 mg PO TID 05/16/19 05/16/19 History promethazine 25 mg ND Q6H PRN 05/16/19 05/16/19 History tramadol 50 mg PO Q6H PRN 05/16/19 05/16/19 History Patient History Medical History CAD (coronary artery disease) (Chronic) s/p stent to LAD in 2012 In 2012, the patient was seen as an outpatient by Dr. Rodriguez, with complaint of symptoms consistent with unstable angina, she was found to have significant lateral ST segment depression on EKG and was therefore hospitalized and underwent cardiac catheterization on 07/03/13 with findings of an ulcerated culprit plaque in the first diagonal branch of the LAD with patent coronaries otherwise. Atrial fibrillation (Chronic) PAF. hospitalized once for A fib with RVR. On COUMADIN Dementia (Chronic) Polymyalgia rheumatica (Chronic) On prednisone 10mg PO daily. GERD (gastroesophageal reflux disease) (Chronic) HTN (hypertension) (Chronic) Fall (Acute) Patient reports fall was preceded by dizziness. Denies LOC. This happened last month resulting in an ER visit with large knee effusion. Basal cell carcinoma of face (Resolved Unknown) NSTEMI (non-ST elevated myocardial infarction) (Resolved) 2012 Alzheimer disease (Chronic) NSTEMI (non-ST elevated myocardial infarction) (Resolved) Anemia Surgical History History of total hip arthroplasty History of colonoscopy History of spinal fusion Family History Other Family history of high blood pressure Social History Preferred Language: Slovenian Communication Ability: Effective Independent Distributor Required: Yes Beliefs That Will Affect Care: None marital status: / Current Living Situation: Personal Care Facility Other Information That Helps Us Care for You: No Feels Safe at Home: Yes Safety Concerns: Feels Safe At This Time Smoking Status: Never smoker Do You Dip or Chew Tobacco: No ; Second Hand Exposure: No ; Hx Alcohol Use: No Hx Substance Use: No Review of Systems Review of Systems: Unobtainable due to cognitive status Physical Exam Physical Exam: Temp Pulse Resp BP Pulse Ox 37.3 C 96 H 22 118/71 97 05/17/19 12:00 05/17/19 12:00 05/17/19 12:00 05/17/19 12:00 05/17/19 12:00 Constitutional: no acute distress Respiratory: normal respiratory effort, lungs clear to auscultation Cardiovascular: Rate/Rhythm: + tachycardic Heart Sounds: + murmur (I/ systolic murmur) Gastrointestinal (Abdomen): normal bowel sounds, soft, nontender, no hepatosplenomegaly Skin: no rashes, warm and dry Neurologic: moves all extremities; no focal motor deficits Genitourinary: A Esparza catheter is in place draining clear dark veronica urine Results & Data Vital Signs (Past 12 Hours) Vital Signs Temp Pulse Pulse Resp BP BP BP 05/17/19 12:00 37.3 C 83 96 H 22 118/71 118/71 05/17/19 11:50 87 18 121/78 05/17/19 11:00 89 20 05/17/19 10:00 81 24 112/68 05/17/19 09:00 96 H 22 112/55 L 05/17/19 08:08 81 22 99/59 L 05/17/19 08:00 85 22 88/51 L 05/17/19 07:00 94 H 20 122/66 05/17/19 06:00 90 24 106/58 L 05/17/19 04:00 38.1 C H 92 H 23 145/84 H Pulse Ox 05/17/19 12:00 97 05/17/19 11:50 97 05/17/19 11:00 95 05/17/19 10:00 96 08/18/19 09:00 94 05/17/19 08:08 94 05/17/19 08:00 96 05/17/19 07:00 93 05/17/19 06:00 97 05/17/19 04:00 97 Laboratory Results Cardiac Enzymes 05/17/19 05/17/19 Range/Units 04:28 10:56 Troponin I 7.140 H* 5.940 H* (0-0.045) ng/ml Coagulation 05/17/19 Range/Units 04:28 PT 14.0 H (9.0-12.0) Seconds CBC 05/17/19 Range/Units 04:28 WBC 23.02 H (4.8-10.8) K/uL RBC 3.46 L (4.2-5.4) M/uL Hgb 10.9 L D (12.0-16.0) g/dL Hct 33.0 L (37-47) % Plt Count 158 (130-400) K/uL Neut # (Auto) 20.30 H (1.4-6.5) K/uL Lymph # (Auto) 1.09 L (1.2-3.4) K/uL Izard # (Auto) 1.13 H (0.11-0.59) K/uL Eos # (Auto) 0.01 (0-0.5) K/uL Baso # (Auto) 0.02 (0-0.2) K/uL Comprehensive Metabolic Panel 05/17/19 05/17/19 Range/Units 04:28 10:56 Sodium 142 142 (136-145) mmol/L Potassium 3.3 L 3.5 (3.5-5.1) mmol/L Chloride 110 H 108 H (98-107) mmol/L Carbon Dioxide 25 24 (21-32) mmol/L BUN 21 H 22 H (7-18) mg/dl Creatinine 1.17 D 1.14 (0.6-1.2) mg/dl Glucose 86 89 (70-99) mg/dl Calcium 7.6 L 7.8 L (8.5-10.1) mg/dl Intake and Output 05/17/19 05/17/19 05/17/19 06:59 14:59 22:59 Intake Total 1391 / 2354.193 2044.667 / 2044.667 Output Total 300 / 802 228 / 228 Balance 1091 / 6520.038 3986.667 / 1816.667 Intake: IV 1271 / 4.193 994.667 / 994.667 Normosol-R 1,000 ml @ 80 mls/hr 996 / 996 994.667 / 994.667 IV .[id number] [facility] Rx#:[id number] Vancomycin HCl 1,250 mg In Nss 275 / 275 250 ml @ 125 mls/hr IV Q24H [facility] Rx#:[id number] Oral 120 / 300 1050 / 1050 Output: Urine Amount (Catheter) 300 / 800 225 / 225 Esparza/Indwelling 300 / 800 225 / 225 # Bowel Movements 3 / 3 Other: Weight 83.1 kg Medications Administered Current Inpatient Medications Acetaminophen (Tylenol) 650 mg ND Q6H PRN PRN Reason: pain/fever Stop: 06/15/19 06:42 Last Admin: 05/17/19 05:07 Dose: 650 mg Documented by: Al Hydrox/Mg Hydrox/Simethicone (Maalox Max) 30 ml PO QID PRN PRN Reason: Heartburn Stop: 06/15/19 06:42 Aspirin (Ecotrin Ectab) 81 mg PO DAILY [facility] Stop: 06/15/19 08:59 Last Admin: 05/17/19 08:00 Dose: 81 mg Documented by: Bisacodyl (Dulcolax) 10 mg ND DAILY PRN PRN Reason: Constipation Stop: 06/15/19 06:42 Citalopram Hydrobromide (Celexa) 20 mg PO DAILY [facility] Stop: 06/15/19 08:59 Last Admin: 05/17/19 07:58 Dose: 20 mg Documented by: Cyanocobalamin (Vitamin B-12) 1,000 mcg PO DAILY [facility] Stop: 06/15/19 08:59 Last Admin: 05/17/19 08:00 Dose: 1,000 mcg Documented by: Docusate Sodium (Colace) 100 mg PO BID [facility] Stop: 06/15/19 08:59 Last Admin: 05/17/19 08:00 Dose: 100 mg Documented by: Heparin Sodium (Porcine) (Heparin Sodium (Porcine)) 5,000 units SQ Q12 [facility] Stop: 06/15/19 20:59 Last Admin: 05/17/19 08:01 Dose: 5,000 units Documented by: Ceftriaxone Sodium 2,000 mg/ (Dextrose) 70 mls @ 100 mls/hr IV Q24H [facility]; Protocol Stop: 05/21/19 13:59 Last Admin: 05/17/19 14:35 Dose: 100 mls/hr Documented by: Parenteral Electrolytes (Normosol-R) 1,000 mls @ 80 mls/hr IV .[id number] [facility] Stop: 06/15/19 11:29 Last Admin: 05/17/19 12:36 Dose: 80 mls/hr Documented by: Miscellaneous (Icu Protocol For Hyperglycemia) 1 ea N/A PRN PRN; Protocol PRN Reason: Hyperglycemia Protocol Stop: 05/18/19 06:42 Multivitamins (Multivitamin Tab) 1 tab PO QAM [facility] Stop: 06/16/19 08:59 Last Admin: 05/17/19 09:28 Dose: 1 tab Documented by: Polyethylene Glycol (Miralax Powder Packet) 17 gm PO DAILY [facility] Stop: 06/15/19 08:59 Last Admin: 05/17/19 07:56 Dose: 17 gm Documented by: Potassium Chloride (Klor-Con M20) 20 meq PO BID [facility] Stop: 05/18/19 09:01 Prednisone (Prednisone) 10 mg PO DAILY [facility] Stop: 06/15/19 11:29 Last Admin: 05/17/19 08:01 Dose: 10 mg Documented by: Senna/Docusate Sodium (Senokot S) 1 tab PO DAILY [facility] Stop: 06/15/19 08:59 Last Admin: 05/17/19 08:01 Dose: 1 tab Documented by:
[2019-05-17] MEDS ORDERED: METOPROLOL TARTRATE 25 MG TAB PO ONE (16:30)
[2019-05-17] MEDS: ATORVASTATIN 10 MG TAB PO SCH (16:40)
[2019-05-17] MEDS ORDERED: ONDANSETRON INJ 2 MG/ML 2 ML VIAL IV STA (18:49)
[2019-05-17] MEDS: POTASSIUM CHLORIDE 20 MEQ TABCR PO SCH (20:59)
--- NOTE | 2019-05-17 22:47 | Hospitalist Progress Note ---
Date of Service May 17, 2019 Assessment & Plan (1) Altered mental status: 88 y/o F Hx CAD, AF, HTN, dementia, PMR. She is a resident of [facility] and was sent to the ER due to fever and AMS. She had apparently been vomiting the prior day as well. The pt was hypotensive and febrile on arrival to the ER. She received IVF and is requiring pressors to maintain an adequate blood pressure. She is unable to communicate any meaningful information at the time of admission. Initial labs are notable leukocytosis, lactic acidosis and an elevated troponin. A UA is marhginally + and a CXR may demonstrate a RLL PNM. A cough was not reoprted and she was not hypoxic on arrival to the ER. DNR/DNI - confirmed with son - total time for this admit review of labs, meds, imaging, records - discussion with pt's son and ER attending (2) Septic shock: Patient is off pressors. Lactuic acid normalized. Patient has gram negative bacteremia. Will continue ceftriaxone. stopped vanco as MRSA negative. Patient will be transferred out of ICU. (3) UTI (urinary tract infection): Will treat as noted above. Likely source of infection (4) Gram-negative bacteremia: will continue IV ceftriazone (5) Acute renal failure: resolved. likely pre renal (6) CAD (coronary artery disease): elevated trop - likely due to demand - [place] not supported by EKG/symptoms - we will trend and obtain an echo - she takes ASA daily. Peacked at 7. Appreciate input from cardio Echocardiogram performed today reveals hyperdynamic left ventricular systolic function with a new focal apical wall motion abnormality, the mid and basal levels of the left ventricle are spared. Her echocardiographic abnormality is suggestive of either ischemia or infarct and the distal LAD coronary artery territory versus a stress-induced cardiomyopathy related to her sepsis. (7) Atrial fibrillation: cont. diltiazem and ASA PMR: recieved stress dose steroids. Spent 35 minutes in management of patient. Being transferred to PCU. Subjective Patient is a poor historian (due to her dementia). She denies any complaints at this time. Review of Systems Review of Systems: Unobtainable due to mental health condition Physical Exam Physical Exam: General: Elderly F - no distress ENT: No erythema or exudates, no thrush Eyes: DIVYA, EOMI Head and neck: Normocephalic, atraumatic, No JVD, neck is supple. Chest/heart: Nontender, S1,2, irr, + systolic murmur Lungs: CTAB, no wheezing or crackles Abdomen: Nontender, nondistended, BS+ Neuro: Nomotor deficits Musculoskeletal: No joint inflammation, muscle tenderness, FROM Skin: No acute rashes or ulcers Extremities: No clubbing, cyanosis, + edema Results & Data Vital Signs (Past 12 Hours) Vital Signs Temp Pulse Pulse Resp BP BP Pulse Ox 05/17/19 19:58 36.9 C 86 16 134/74 96 05/17/19 17:52 37.2 C 80 20 142/87 H 94 05/17/19 17:00 90 22 149/89 H 94 05/17/19 16:00 78 20 147/87 H 96 05/17/19 15:00 79 20 136/88 96 05/17/19 14:00 80 18 130/83 97 05/17/19 13:00 93 H 22 128/74 94 05/17/19 12:00 37.3 C 83 96 H 22 118/71 118/71 97 05/17/19 11:50 87 18 121/78 97 05/17/19 11:00 89 20 95 PG Care Time/CCT Total # of Minutes Spent Total Time Spent with Patient: Total time spent is greater than 50% in coordination of care (as documented) at patient's floor/unit and/or counseling patient: (1) Altered mental status Altered mental status type: disorientation Qualified Code(s): R41.0 - Disorientation, unspecified (2) UTI (urinary tract infection) Hematuria presence: without hematuria Urinary tract infection type: site unspecified Qualified Code(s): N39.0 - Urinary tract infection, site not specified (3) Acute renal failure Acute renal failure type: unspecified Qualified Code(s): N17.9 - Acute kidney failure, unspecified
[2019-05-18] MEDS: NORMOSOL-R 1,000 ML IV SCH (08:51)
[2019-05-18] MEDS: predniSONE 10 MG TABLET PO SCH (08:53)
[2019-05-18] MEDS: DOCUSATE SODIUM/SENNA 50/8.6MG TAB PO SCH (08:53)
[2019-05-18] MEDS: POTASSIUM CHLORIDE 20 MEQ TABCR PO SCH (08:53)
[2019-05-18] MEDS: MULTIVITAMIN TAB PO SCH (08:53)
[2019-05-18] MEDS: ASPIRIN 81 MG ECTAB PO SCH (08:53)
[2019-05-18] MEDS: DOCUSATE SODIUM 100 MG CAP PO SCH (08:54)
[2019-05-18] MEDS: ATORVASTATIN 10 MG TAB PO SCH (08:54)
[2019-05-18] MEDS: HEPARIN SOD 5,000 UNIT/0.5 ML VIAL SQ SCH ×2 (08:54→20:26)
[2019-05-18] MEDS: CITALOPRAM 40 MG TAB PO SCH (08:54)
[2019-05-18] MEDS: CYANOCOBALAMIN 500 MCG TABLET (VITAMIN B-12) PO SCH (08:54)
[2019-05-18] MEDS: POLYETHYLENE (MIRALAX) 17 GM PACK PO SCH (08:55)
[2019-05-18] MEDS ORDERED: METOPROLOL TARTRATE 25 MG TAB PO SCH (09:00)
--- NOTE | 2019-05-18 09:17 | Cardiology Progress Note ---
Date of Service May 18, 2019 Assessment & Plan (1) Gram-negative bacteremia: (2) Elevated troponin I level: (3) Atrial fibrillation: Patient feeling well from a cardiovascular perspective. Blood pressure trending upward at this time. Remains in sinus rhythm on telemetry. No anginal symptoms currently. Recommend titration of metoprolol to 25 mg twice daily. Oral intake improving. Discontinue IV fluid today. Continue antibiotic therapy per direction of internal medicine. Conservative treatment recommended with aspirin, beta-cristóbal, and statin therapy. Oral anticoagulation discontinued August 2018 secondary to recurrent falls. Subjective Patient seen and examined at the bedside. Admitted with change in mental status and fevers. Diagnosed with gram-negative sepsis treated with IV fluid, pressor therapy, and antibiotics. Hemodynamics have improved. Elevated troponin and new apical wall motion abnormality noted. Conservative management recommended due to comorbidities, lack of anginal symptoms, and underlying dementia. Patient is a poor historian. Denies chest pain or shortness of breath. Oriented to person only. Believes she is still living with her who several years ago. She is a resident of [facility]. Beta-cristóbal therapy added. Cardizem and digoxin on hold since admission. Remains in sinus rhythm on telemetry with premature atrial complexes. Tolerated a.m. meal. No concerns reported by nursing. Review of Systems Review of Systems: Unobtainable due to mental health condition Physical Exam Physical Exam: General: NAD, awake and alert, oriented to person only. HEENT: Normocephalic. Atraumatic. Conjunctiva pink, no scleral icterus. Neck: No carotid bruits, the carotid upstrokes are brisk. No JVD. No HJR Heart: Regular normal S-1 and S-2 no S-3 or S-4 gallop. Soft, 1/6 systolic ejection murmur he jeremiah best at the right second intercostal space. PMI is not displaced. No RV heave. Lungs: Mild crackles at the right base. Mild end expiratory wheeze. Abdomen: Normal bowel sounds. Soft. Nontender. No masses or organomegaly. No abdominal bruits. Extremities: No clubbing, cyanosis, or edema. Pulses: radial=2/4, Dorsalis pedis =2/4. Neuro: Cranial nerves grossly intact. No focal motor deficit. Results & Data Vital Signs (Past 12 Hours) Vital Signs Temp Pulse Resp BP BP BP Pulse Ox 05/18/19 07:05 37.4 C 88 16 168/90 H 94 05/18/19 02:59 37.3 C 86 16 173/97 H 93 05/17/19 23:18 37.5 C 84 16 174/111 H 171/96 H 95 (1) Atrial fibrillation Atrial fibrillation type: paroxysmal Qualified Code(s): I48.0 - Paroxysmal atrial fibrillation
--- NOTE | 2019-05-18 14:00 | Hospitalist Progress Note ---
Date of Service May 18, 2019 Assessment & Plan (1) Altered mental status: 88 y/o F Hx CAD, AF, HTN, dementia, PMR. She is a resident of [facility] and was sent to the ER due to fever and AMS. Pt was hypotensive and requiring pressors to maintain an adequate BP on admission--this has since resolved Seems likely related to septic shock and is now resolved s/p abx and other tx as noted Son feels pt is at her baseline level of dementia (2) Septic shock: Patient is off pressors. Lactic acid normalized. Cx with providencia stuartii and caog neg staph R to cipro/levaquin Will continue ceftriaxone and transition to PO for next dosing stopped vanco as MRSA negative. Stable for transfer to floor (3) UTI (urinary tract infection): Cx with mixed katherine and essentially neg (4) Gram-negative bacteremia: will continue IV ceftriazone (5) Acute renal failure: Likely related to infection and resolved (6) CAD (coronary artery disease): elevated trop - likely due to demand ischemia- [place] not supported by EKG/symptoms - Has trended down, peaked at 7.1 Appreciate input from cardio Echo reveals hyperdynamic left ventricular systolic function with a new focal apical wall motion abnormality, the mid and basal levels of the left ventricle are spared. Her echocardiographic abnormality is suggestive of either ischemia or infarct and the distal LAD coronary artery territory versus a stress-induced cardiomyopathy related to her sepsis. (7) Atrial fibrillation: cont. diltiazem and ASA (8) Polymyalgia rheumatica: received stress dose steroids. Baseline dose is 10mg QD Subjective Pt tells me she is feeling much better. She has been eating and no further n/v. She does not remember recent events of illness. Nursing reports that she is doing quite well overall. Pt does tell me that she still feels confused in that "I don't know where I am." She asked me several times "why am I here??". I spoke with pt's son via phone and reported this to him. He states that this is pt's usual level of dementia. He states that from our conversation it would appear that pt is at her usual mentation. She is generally not oriented to time or place and repeats a lot of information/questions. Review of Systems Review of Systems: Pertinent positives and negatives reviewed in HPI--all others negative Physical Exam Constitutional: WD/WN, vitals as above Eyes: normal visual gutierrez by confrontation and + anicteric sclerae Neck: normal visual inspection and trachea midline Respiratory: normal respiratory effort, lungs clear to auscultation Cardiovascular: Rate/Rhythm: regular rate and regular rhythm Gastrointestinal (Abdomen): Inspection/Auscultation: abdomen not distended Percussion/Palpation: abdomen soft; abdomen nontender Musculoskeletal: Head/Neck/Chest: normocephalic and head atraumatic negative for edema, peripheral pulses intact Skin: no rashes, warm and dry Neurologic: awake; not confused Speech / Cognition: normal speech Psychiatric: Orientation: alert, oriented to person and cooperative Pt answers questions appropriately. Cannot tell me where we are, but does pick "hospital" when given a list of options and knows that this is [place]. Has no sense of year, month, or season. Repeats several statements and questions that were already discussed earlier in the conversation She is quite pleasant overall Results & Data Vital Signs (Past 12 Hours) Vital Signs Temp Pulse Resp BP BP Pulse Ox 05/18/19 11:34 37.3 C 79 19 160/88 H 93 05/18/19 07:05 37.4 C 88 16 168/90 H 94 05/18/19 02:59 37.3 C 86 16 173/97 H 93 PG Care Time/CCT Total # of Minutes Spent Total Time Spent with Patient: Total time spent is greater than 50% in coordina tion of care (as documented) at patient's floor/unit and/or counseling patient: (1) Altered mental status Altered mental status type: disorientation Qualified Code(s): R41.0 - Disorientation, unspecified (2) UTI (urinary tract infection) Hematuria presence: without hematuria Urinary tract infection type: site unspecified Qualified Code(s): N39.0 - Urinary tract infection, site not specified (3) Acute renal failure Acute renal failure type: unspecified Qualified Code(s): N17.9 - Acute kidney failure, unspecified (4) Atrial fibrillation Atrial fibrillation type: paroxysmal Qualified Code(s): I48.0 - Paroxysmal atrial fibrillation
[2019-05-18] MEDS: cefTRIAXone SODIUM 2,000 MG in DEXTROSE 5% 50 ML IV SCH (15:37)
[2019-05-18] MEDS: METOPROLOL TARTRATE 25 MG TAB PO SCH (20:26)
[2019-05-19] MEDS: HEPARIN SOD 5,000 UNIT/0.5 ML VIAL SQ SCH ×2 (08:35→20:36)
[2019-05-19] MEDS: predniSONE 10 MG TABLET PO SCH (08:35)
[2019-05-19] MEDS: METOPROLOL TARTRATE 25 MG TAB PO SCH ×2 (08:36→20:37)
[2019-05-19] MEDS: MULTIVITAMIN TAB PO SCH (08:38)
[2019-05-19] MEDS: CITALOPRAM 40 MG TAB PO SCH (08:38)
[2019-05-19] MEDS: ATORVASTATIN 10 MG TAB PO SCH (08:38)
[2019-05-19] MEDS: CYANOCOBALAMIN 500 MCG TABLET (VITAMIN B-12) PO SCH (08:38)
[2019-05-19] MEDS: ASPIRIN 81 MG ECTAB PO SCH (08:39)
[2019-05-19] MEDS: DOCUSATE SODIUM/SENNA 50/8.6MG TAB PO SCH (08:45)
[2019-05-19] MEDS ORDERED: cephALEXin 250 MG CAP PO SCH (09:00)
--- NOTE | 2019-05-19 10:53 | Cardiology Progress Note ---
Date of Service May 19, 2019 Assessment & Plan (1) Gram-negative bacteremia: (2) Elevated troponin I level: (3) HTN (hypertension): (4) Atrial fibrillation: Patient feeling well from a cardiovascular perspective. Continue to monitor at this time. Patient transitioned from Cardizem to beta-cristóbal during hospitalization. Consider adding low-dose amlodipine pending clinical course. No anginal symptoms currently. Continue antibiotic therapy per direction of internal medicine. Conservative treatment recommended with aspirin, beta- cristóbal, and statin therapy. Oral anticoagulation discontinued August 2018 secondary to recurrent falls. Subjective Patient seen and examined at the bedside. Admitted with change in mental status and fevers. Diagnosed with gram-negative sepsis treated with IV fluid, pressor therapy, and antibiotics. Hemodynamics have improved. Elevated troponin and new apical wall motion abnormality noted. Conservative management recommended due to comorbidities, lack of anginal symptoms, and underlying dementia. IV fluid discontinued yesterday. Metoprolol titrated 25 mg twice daily. Blood pressure mildly elevated. Patient is a poor historian secondary to underlying dementia. Denies chest pain or shortness of breath. Oriented to person only. Cardizem and digoxin on hold since admission. Telemetry discontinued yesterday. Tolerated a.m. meal. No concerns reported by nursing. Review of Systems Review of Systems: Unobtainable due to mental health condition Physical Exam Physical Exam: General: NAD, awake and alert, oriented to person only. HEENT: Normocephalic. Atraumatic. Conjunctiva pink, no scleral icterus. Neck: No carotid bruits, the carotid upstrokes are brisk. No JVD. No HJR Heart: Regular normal S-1 and S-2 no S-3 or S-4 gallop. Soft, 1/6 systolic ejection murmur heard best at the right second intercostal space. PMI is not displaced. No RV heave. Lungs: Mild crackles at the right base. Mild end expiratory wheeze B/L. Abdomen: Normal bowel sounds. Soft. Nontender. No masses or organomegaly. No abdominal bruits. Extremities: No clubbing, cyanosis, or edema. Pulses: radial=2/4, Dorsalis pedis =2/4. Neuro: Cranial nerves grossly intact. No focal motor deficit. Results & Data Vital Signs (Past 12 Hours) Vital Signs Temp Pulse Pulse Resp BP BP BP 05/19/19 10:04 165/90 H 05/19/19 08:35 88 191/82 H 05/19/19 07:01 37.1 C 80 20 91/68 L 05/18/19 22:59 37.1 C 72 16 174/91 H Pulse Ox 05/19/19 10:04 05/19/19 08:35 05/19/19 07:01 92 05/18/19 22:59 92 (1) Atrial fibrillation Atrial fibrillation type: paroxysmal Qualified Code(s): I48.0 - Paroxysmal atrial fibrillation
--- NOTE | 2019-05-19 11:58 | Hospitalist Progress Note ---
Date of Service May 19, 2019 Assessment & Plan (1) Altered mental status: 88 y/o F Hx CAD, AF, HTN, dementia, PMR. She is a resident of [facility] and was sent to the ER due to fever and AMS. Pt was hypotensive and requiring pressors to maintain an adequate BP on admission--this has since resolved Seems likely related to septic shock and is now resolved s/p abx and other tx as noted Son feels pt is at her baseline level of dementia after discussion on 05/18 (2) Septic shock: Gram neg septic shock Patient is off pressors. Lactic acid normalized. Cx with providencia stuartii and coag neg staph R to cipro/levaquin Will continue ceftriaxone and transition to cefdinir on 05/19 stopped vanco as MRSA negative. (3) UTI (urinary tract infection): Cx with mixed katherine and essentially neg (4) Gram-negative bacteremia: Abx as above (5) Acute renal failure: Likely related to infection and resolved (6) CAD (coronary artery disease): elevated trop - likely due to demand ischemia- WI not supported by EKG/symptoms - Has trended down, peaked at 7.1 Appreciate input from cardio Echo reveals hyperdynamic left ventricular systolic function with a new focal apical wall motion abnormality, the mid and basal levels of the left ventricle are spared. Her echocardiographic abnormality is suggestive of either ischemia or infarct and the distal LAD coronary artery territory versus a stress-induced cardiomyopathy related to her sepsis. 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 Baseline dose is 10mg QD Subjective Pt continues to be pleasantly confused per nursing. She did eat breakfast. Issues with massive diarrhea yesterday, orders given to hold miralax and colace, but continue senna. No further diarrhea. Pt denies fever, SOB, chest pain, abd pain, n/v/c/d, LE pain or swelling. Review of Systems Review of Systems: Pertinent positives and negatives reviewed in HPI--all others negative Physical Exam Constitutional: WD/WN, vitals as above Eyes: normal visual gutierrez by confrontation and + anicteric sclerae Neck: normal visual inspection and trachea midline Respiratory: normal respiratory effort, lungs clear to auscultation Cardiovascular: Rate/Rhythm: regular rate and regular rhythm Gastrointestinal (Abdomen): Inspection/Auscultation: abdomen not distended Percussion/Palpation: abdomen soft; abdomen nontender Musculoskeletal: Head/Neck/Chest: normocephalic and head atraumatic Skin: no rashes, warm and dry Neurologic: awake; not confused Speech / Cognition: normal speech Psychiatric: Orientation: alert, oriented to person and cooperative ongoing repetition of questions and statements, pleasant Results & Data Vital Signs (Past 12 Hours) Vital Signs Temp Pulse Pulse Resp BP BP Pulse Ox 05/19/19 10:04 165/90 H 05/19/19 08:35 88 191/82 H 05/19/19 07:01 37.1 C 80 20 91/68 L 92 PG Care Time/CCT Total # of Minutes Spent Total Time Spent with Patient: Total time spent is greater than 50% in coordination of care (as documented) at patient's floor/unit and/or counseling patient: (1) Altered mental status Altered mental status type: disorientation Qualified Code(s): R41.0 - Disorientation, unspecified (2) UTI (urinary tract infection) Hematuria presence: without hematuria Urinary tract infection type: site unspecified Qualified Code(s): N39.0 - Urinary tract infection, site not specified (3) Acute renal failure Acute renal failure type: unspecified Qualified Code(s): N17.9 - Acute kidney failure, unspecified (4) Atrial fibrillation Atrial fibrillation type: paroxysmal Qualified Code(s): I48.0 - Paroxysmal atrial fibrillation
[2019-05-19] MEDS ORDERED: CEFDINIR 300 MG CAP PO SCH (13:00)
[2019-05-19] MEDS: CEFDINIR 300 MG CAP PO SCH (14:09)
[2019-05-20] MEDS: CEFDINIR 300 MG CAP PO SCH ×2 (00:01→13:15)
[2019-05-20] MEDS: MULTIVITAMIN TAB PO SCH (08:19)
[2019-05-20] MEDS: METOPROLOL TARTRATE 25 MG TAB PO SCH ×2 (08:19→20:21)
[2019-05-20] MEDS: CITALOPRAM 40 MG TAB PO SCH (08:19)
[2019-05-20] MEDS: ASPIRIN 81 MG ECTAB PO SCH (08:19)
[2019-05-20] MEDS: predniSONE 10 MG TABLET PO SCH (08:19)
[2019-05-20] MEDS: ATORVASTATIN 10 MG TAB PO SCH (08:19)
[2019-05-20] MEDS: CYANOCOBALAMIN 500 MCG TABLET (VITAMIN B-12) PO SCH (08:19)
[2019-05-20] MEDS: HEPARIN SOD 5,000 UNIT/0.5 ML VIAL SQ SCH ×2 (08:19→20:16)
[2019-05-20] MEDS: DOCUSATE SODIUM/SENNA 50/8.6MG TAB PO SCH (08:20)
--- NOTE | 2019-05-20 10:45 | Cardiology Progress Note ---
Date of Service May 20, 2019 Assessment & Plan (1) Gram-negative bacteremia: (2) Elevated troponin I level: (3) HTN (hypertension): (4) Atrial fibrillation: Repeat basic metabolic panel this a.m. Restart Lasix 20 mg daily. Continue low-dose beta-cristóbal as previously ordered. Continue to monitor blood pressure. No further inpatient cardiac testing or intervention at this time. Antibiotic therapy per internal medicine. Cardiology will sign off. Please call with questions. Thank you for allowing me to participate the care of your patient. Subjective Patient seen and examined at the bedside. Resting comfortably. Remains confused, however, pleasant and cooperative. Denies chest pain or unusual shortness of breath. Blood pressure improved this morning. Transitioned from Cardizem and digoxin to beta-cristóbal during hospitalization. Lasix remains on hold. Tolerating diet and medications. Patient offers no complaints at this time. Review of Systems Review of Systems: Unobtainable due to mental health condition Physical Exam Physical Exam: General: NAD, awake and alert, oriented to person only. HEENT: Normocephalic. Atraumatic. Conjunctiva pink, no scleral icterus. Neck: No carotid bruits, the carotid upstrokes are brisk. No JVD. No HJR Heart: Regular normal S-1 and S-2 no S-3 or S-4 gallop. Soft, 1/6 systolic ejection murmur heard best at the right second intercostal space. PMI is not displaced. No RV heave. Lungs: Clear bilateral without rales, rhonchi, or wheeze. Abdomen: Normal bowel sounds. Soft. Nontender. No masses or organomegaly. No abdominal bruits. Extremities: No clubbing, cyanosis, or edema. Pulses: radial=2/4, Dorsalis pedis =2/4. Neuro: Cranial nerves grossly intact. No focal motor deficit. Results & Data Vital Signs (Past 12 Hours) Vital Signs Temp Pulse Pulse Resp BP BP Pulse Ox 05/20/19 07:30 36.6 C 78 20 127/76 97 05/19/19 23:55 37.1 C 69 16 166/94 H 94 (1) Atrial fibrillation Atrial fibrillation type: paroxysmal Qualified Code(s): I48.0 - Paroxysmal atrial fibrillation
[2019-05-20 11:42] LABS: BUN Creatinine Ratio 19.7 (10-20); Calcium 8.1 mg/dl (8.5-10.1); Creatinine Clr Calc Pharmacy 61.4 ml/min; Est GFR (African American) 86.7; Est GFR (Non-African American) 74.8; Potassium 3.4 mmol/L (3.5-5.1)
[2019-05-20] MEDS: ERTAPENEM SODIUM 1,000 MG in SODIUM CHLORIDE 0.9% 50 ML IV SCH (14:13)
--- NOTE | 2019-05-20 16:38 | Hospitalist Progress Note ---
Date of Service May 20, 2019 Assessment & Plan (1) UTI (urinary tract infection): Blood cultures from growing 3 bacteria. - Discussed with pharmacist on 05/20 - Will need ertapenem to cover all 3. - End date: 05/26 (2) Gram-negative bacteremia: Abx as above (3) Altered mental status: Infectious encephalopathy - By 05/19, per per son, she was at her baseline. (4) Septic shock: Septic shock from urinary tract infection & bacteremia. - Patient is off pressors now. (5) Acute renal failure: Likely related to infection. - Now at baseline Cr of 0.7 (6) CAD (coronary artery disease): Elevated trop - likely due to demand ischemia. Echo on 05/17 showed hyperdynamic left ventricular systolic function with a new focal apical wall motion abnormality, the mid and basal levels of the left ventricle are spared. Her echocardiographic abnormality is suggestive of either ischemia or infarct and the distal LAD coronary artery territory versus a stress-induced cardiomyopathy related to her sepsis. - Troponin trended down, peaked at 7.1 - Appreciate input from cardio - On 05/20, will restart home Lasix; monitor BMP. 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 All held on admission due to hypotension requiring pressors. - Cardiology is following and changed diltiazem to metoprolol, monitoring and considering addition of amlodipine. - No on anticoagulation (8) Polymyalgia rheumatica: Baseline prednisone dose is 10mg daily. - Was on stress dose initially; now back to home dose. (9) DVT prophylaxis: Heparin 5000 units Q12h Subjective Very pleasant without any complaints this afternoon. She denies any shortness of breath, denies cough, denies loss of appetite or nausea or vomiting. Review of Systems Review of Systems: All systems reviewed & are unremarkable except as noted in HPI & below Physical Exam Constitutional: WD/WN, vitals as above Eyes: EOM intact bilaterally; no conjunctival abnormality ENMT: external ear and nose normal, oropharynx normal Neck: trachea midline, no thyromegaly normal visual inspection Respiratory: normal respiratory effort, lungs clear to auscultation no respiratory distress Cardiovascular: RRR, no murmur, no edema Gastrointestinal (Abdomen): Inspection/Auscultation: abdomen normal to inspection; abdomen not distended Musculoskeletal: no cyanosis or clubbing, extremities motor strength 5/5 Skin: no rashes, warm and dry Neurologic: moves all extremities and awake Psychiatric: Orientation: alert, oriented to person and cooperative; + not oriented to time Eye Contact: good eye contact Speech: normal rate/rhythm/volume of speech Insight: + limited insight Results & Data Vital Signs (Past 12 Hours) Vital Signs Temp Pulse Pulse Resp BP Pulse Ox 05/20/19 15:17 36.8 C 69 18 151/89 H 93 05/20/19 07:30 36.6 C 78 20 127/76 97 PG Care Time/CCT Total # of Minutes Spent Total Time Spent with Patient: Total time spent is greater than 50% in coordination of care (as documented) at patient's floor/unit and/or counseling patient: (1) Altered mental status Altered mental status type: disorientation Qualified Code(s): R41.0 - Disorientation, unspecified (2) UTI (urinary tract infection) Hematuria presence: without hematuria Urinary tract infection type: site unspecified Qualified Code(s): N39.0 - Urinary tract infection, site not specified (3) Acute renal failure Acute renal failure type: unspecified Qualified Code(s): N17.9 - Acute kidney failure, unspecified (4) Atrial fibrillation Atrial fibrillation type: paroxysmal Qualified Code(s): I48.0 - Paroxysmal atrial fibrillation
[2019-05-21] MEDS: METOPROLOL TARTRATE 25 MG TAB PO SCH (07:39)
[2019-05-21] MEDS: ASPIRIN 81 MG ECTAB PO SCH (07:39)
[2019-05-21] MEDS: ATORVASTATIN 10 MG TAB PO SCH (07:40)
[2019-05-21] MEDS: DOCUSATE SODIUM/SENNA 50/8.6MG TAB PO SCH (07:40)
[2019-05-21] MEDS: CITALOPRAM 40 MG TAB PO SCH (07:40)
[2019-05-21] MEDS: HEPARIN SOD 5,000 UNIT/0.5 ML VIAL SQ SCH (07:40)
[2019-05-21] MEDS: CYANOCOBALAMIN 500 MCG TABLET (VITAMIN B-12) PO SCH (07:40)
[2019-05-21] MEDS: MULTIVITAMIN TAB PO SCH (07:40)
[2019-05-21] MEDS: predniSONE 10 MG TABLET PO SCH (07:40)
[2019-05-21 07:50] LABS: Hematocrit (blood only) 34.5 % (37-47); Hemoglobin 11.5 g/dL (12.0-16.0); Mean Corpuscular Hgb Conc 33.3 g/dL (32-36); Mean Platelet Volume 10.4 fL (7.4-10.4); Platelet Count 164 K/uL (130-400); RDW Coefficient of Variation 15.8 % (11.5-14.5); RDW Standard Deviation 55.3 fL (36.4-46.3); Red Blood Count 3.63 M/uL (4.2-5.4); White Blood Count 6.83 K/uL (4.8-10.8)
[2019-05-21 08:20] LABS: BUN Creatinine Ratio 19.6 (10-20); Creatinine Clr Calc Pharmacy 64.4 ml/min; Est GFR (African American) 90.5; Est GFR (Non-African American) 78.1; Potassium 3.2 mmol/L (3.5-5.1)
[2019-05-21] MEDS ORDERED: FUROSEMIDE 20 MG TAB PO SCH (09:00)
--- NOTE | 2019-05-21 13:35 | Discharge Summary ---
Date of Service May 21, 2019 Admission HPI Per Admitting Provider 88 y/o F Hx CAD, AF, HTN, dementia, PMR. She is a resident of [facility] and was sent to the ER due to fever and AMS. She had apparently been vomiting the prior day as well. The pt was hypotensive and febrile on arrival to the ER. She received IVF and is requiring pressors to maintain an adequate blood pressure. She is unable to communicate any meaningful information at the time of admission. Initial labs are notable leukocytosis, lactic acidosis and an elevated troponin. A UA is marhginally + and a CXR may demonstrate a RLL PNM. A cough was not reoprted and she was not hypoxic on arrival to the ER. PMH: 1) CAD - LAD stent 2012 2) Paroxysmal atrial fibrillation - not on anticoagulation due to history of falls 3) Dementia 4) HTN 5) PMR daily prednisone 6) Echo 2017 - moderate MR, TR, pulm HTN 7) Proximal humeral fracture 08/2018 Surgical: R RTSR 08/2018 Social: intermediate resident. No smoking history. Family: Noncontributory Principal Diagnosis Urinary tract infection causing bacteremia Discharge Exam Constitutional WD/WN, vitals as above Eyes EOM intact bilaterally; no conjunctival abnormality ENMT external ear and nose normal, oropharynx normal Neck trachea midline, no thyromegaly normal visual inspection Respiratory normal respiratory effort, lungs clear to auscultation no respiratory distress Cardiovascular RRR, no murmur, no edema Gastrointestinal (Abdomen) Inspection/Auscultation: abdomen normal to inspection; abdomen not distended Musculoskeletal no cyanosis or clubbing, extremities motor strength 5/5 Skin no rashes, warm and dry Neurologic moves all extremities and awake Psychiatric Orientation: alert, oriented to person and cooperative; + not oriented to time Eye Contact: good eye contact Speech: normal rate/rhythm/volume of speech Insight: + limited insight Discharge Data Allergies Allergy/AdvReac Type Severity Reaction Status Date / Time nitrofurantoin Allergy Intermediate MACROBID-HI Verified 05/16/19 03:27 VES colchicine Allergy Unknown UNKNOWN Verified 05/16/19 03:27 zolpidem AdvReac Mild CONFUSION, Verified 05/16/19 03:27 HALLUCINATIONS Consultations 05/16/19 04:39 ED Decision to Admit Stat 05/16/19 06:43 Consult Case Management - Discharge Planning Routine Consult Preassembler And Inspector Routine 05/17/19 22:54 Consult Cardiology Routine Hospital Course (1) UTI (urinary tract infection): Blood cultures from 05/16 growing 3 bacteria. Providencia stuartii x 2 species and Morganella morganii. - Discussed with pharmacist on 05/20 - Will need ertapenem 1g IV daily x 5 more days to cover all 3. Can use shorter course for Gram(-) bacteria (PubMed: [id number]) - End date: 05/26 (2) Gram-negative bacteremia: Cleared bacteria by 05/17. - Abx as above (3) Altered mental status: Infectious encephalopathy - By 05/19, per per son, she was at her baseline. (4) Septic shock: Septic shock from urinary tract infection & bacteremia. - Patient is off pressors now. (5) Acute renal failure: Likely related to infection. - Now at baseline Cr of 0.7 (6) CAD (coronary artery disease): Elevated trop - likely due to demand ischemia. Echo on 05/17 showed hyperdynamic left ventricular systolic function with a new focal apical wall motion abnormality, the mid and basal levels of the left ventricle are spared. Her echocardiographic abnormality is suggestive of either ischemia or infarct and the distal LAD coronary artery territory versus a stress-induced cardiomyopathy related to her sepsis. - Troponin trended down, peaked at 7.1 - Appreciate input from cardio - On 05/20, restarted home Lasix; monitor BMP. 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 All held on admission due to hypotension requiring pressors. - Cardiology is following and changed diltiazem to metoprolol. - Not on anticoagulation (8) Polymyalgia rheumatica: Baseline prednisone dose is 10mg daily. - Was on stress dose initially; now back to home dose. (9) DVT prophylaxis: Heparin 5000 units Q12h Total Time Total Time Spent Total Time Spent (In Minutes): 35 Discharge Plan Discharge Items Patient Disposition: Transfer Jail [facility] Reason For Visit: SEPTIC SHOCK Discharge Diagnosis: Urinary tract infection causing bacteremia Discharge Goals: Decrease discomfort, Diagnostic testing, Improve function and Therapeutic intervention Activity: Resume your previous activity Non-emergency contact: Primary Care Provider Call non-emergency contact if: your symptoms worsen and your temperature is above 101 Follow-up/Referrals: Myesha Rojas [Primary Care Provider] - Diet: Heart Healthy and Low Sodium (2gm) Addtl Provider Instructions: Ms. Mcguire was admitted for septic shock from a urinary tract infection that spread to the blood. She was cultured and had 3 bacteria in her urine and bloodstream. We treated her with IV antibiotics, and she has improved significantly to her baseline pleasant dementia. She needs 5 more days of ertapenem 1g IV every day around noon. She received her dose prior to being discharged on 05/21. The last dose of her antibiotic will be 05/26/2019. Her cardiology held her diltiazem and digoxin in favor of metoprolol for her afib. She is not on anticoagulation. Prescriptions: New ertapenem 1 gram recon soln 1 gm IV DAILY 5 Days RF: 0 metoprolol tartrate 25 mg Tablet 25 mg PO BID Qty: 1 RF: 0 atorvastatin 10 mg Tablet 10 mg PO QAM Qty: 1 RF: 0 Continued prednisone 10 mg Tablet 10 mg PO DAILY RF: 0 donepezil 5 mg Tablet 5 mg PO DAILY RF: 0 citalopram 40 mg Tablet 20 mg PO DAILY RF: 0 sennosides-docusate sodium [Senna-S] 8.6-50 mg Tablet 1 tab PO DAILY RF: 0 cyanocobalamin (vitamin B-12) [Vitamin B-12] 1,000 mcg Tablet 1,000 mcg PO DAILY RF: 0 potassium chloride [Klor-Con 10] 10 mEq Tablet Extended Release 10 meq PO BID RF: 0 aspirin 81 mg Tablet,Delayed Release (Dr/Ec) 81 mg PO DAILY RF: 0 calcium carbonate [Oysco-500] 500 mg calcium (1,250 mg) Tablet 500 mg PO QAM RF: 0 docusate sodium [Colace] 100 mg Capsule 100 mg PO BID RF: 0 furosemide [Lasix] 20 mg Tablet 20 mg PO DAILY RF: 0 alum-mag hydroxide-simeth [Mi-Acid] 200-200-20 mg/5 mL Suspension 30 ml PO QID PRN (Reason: Heartburn) RF: 0 polyethylene glycol 3350 [Miralax] 17 gram/dose Powder 17 g PO DAILY RF: 0 cholecalciferol (vitamin D3) [Vitamin D3] 1,000 unit Tablet 1,000 unit PO DAILY RF: 0 acetaminophen 650 mg Suppository 650 mg WV Q6H PRN (Reason: pain/fever) RF: 0 bisacodyl [Dulcolax (bisacodyl)] 10 mg Suppository 10 mg WV DAILY PRN (Reason: Constipation) RF: 0 ferrous gluconate 324 mg (38 mg iron) Tablet 324 mg PO TID RF: 0 promethazine 25 mg Suppository 25 mg WV Q6H PRN (Reason: Nausea) RF: 0 tramadol 50 mg Tablet 50 mg PO Q6H PRN (Reason: Pain) RF: 0 Discontinued digoxin 125 mcg Tablet 0.125 mg PO DAILY RF: 0 diltiazem HCl 30 mg Tablet 30 mg PO QID RF: 0 cranberry 450 mg Tablet 450 mg PO BID RF: 0 Stand-Alone Forms: [facility] Discharge Orders: Discharge Order (Routine); Ordered 05/21/19 Ordered By: William Cee Skilled Items Patient informed of condition?: Yes DNR: Yes Discharge Level of Care: Skilled Communicable Disease: Yes Discharge Prognosis: Stable Admission Data Admit Date/Time: 05/16/19 05:44 Attending Provider: William Cee Admit Provider: Vijay Rosado Primary Care Provider: Myesha Rojas Other Providers: Boogie Owens ; Torres Saha ; William Cee Service: Medical
[2019-05-21] MEDS: ERTAPENEM SODIUM 1,000 MG in SODIUM CHLORIDE 0.9% 50 ML IV SCH (13:43)
== END 2019-05-21 16:00 | DRG 871 ==
LOC: ED 03:07 → SUATTDRO 05:44 → 1E 05:44 → 2S 05-17 17:48 → 3W 05-18 16:19
DX: E87.6 Hypokalemia; I25.2 Old myocardial infarction; B96.89 Other specified bacterial agents as the cause of diseases classified elsewhere; A41.9 Sepsis, unspecified organism; Z98.1 Arthrodesis status; N17.9 Acute kidney failure, unspecified; G30.9 Alzheimer's disease, unspecified; I25.10 Atherosclerotic heart disease of native coronary artery without angina pectoris; R65.21 Severe sepsis with septic shock; I48.2 Chronic atrial fibrillation; Z96.649 Presence of unspecified artificial hip joint; N39.0 Urinary tract infection, site not specified; F02.80 Dementia in other diseases classified elsewhere, unspecified severity, without behavioral disturbance, psychotic disturbance, mood disturbance, and anxiety; M35.3 Polymyalgia rheumatica; K21.9 Gastro-esophageal reflux disease without esophagitis; I24.8 Other forms of acute ischemic heart disease; Z66 Do not resuscitate

== ENCOUNTER 2019-06-07 09:54 | Inpatient (IN) ==
[2019-06-07] MEDS ORDERED: ONDANSETRON INJ 2 MG/ML 2 ML VIAL IV STA (10:04)
[2019-06-07] MEDS ORDERED: SODIUM CHLORIDE 0.9% 500 ML IV SCH (10:15)
[2019-06-07 10:27] LABS: Hematocrit (blood only) 34.7 % (37-47); Hemoglobin 11.4 g/dL (12.0-16.0); Mean Corpuscular Hgb Conc 32.9 g/dL (32-36); Mean Corpuscular Volume 95.3 fL (80-100); Mean Platelet Volume 9.3 fL (7.4-10.4); Nucleated RBC # (auto) 0.02 K/uL (0-0); Nucleated RBC % (auto) 0.1 %; Platelet Count 300 K/uL (130-400); RDW Coefficient of Variation 16.1 % (11.5-14.5); RDW Standard Deviation 56.1 fL (36.4-46.3); Red Blood Count 3.64 M/uL (4.2-5.4); White Blood Count 12.64 K/uL (4.8-10.8)
--- NOTE | 2019-06-07 10:32 | XRay Report ---
SINGLE VIEW CHEST CLINICAL HISTORY: Rhonchi on physical examination. FINDINGS: An AP, portable, upright chest radiograph is compared to study 05/16/2019 and correlated wit h chest CT dated 06/08/2013. The examination is degraded by portable technique, patient rotation, and a pical lordotic positioning. The heart is enlarged and there is atherosclerotic calcification of the thoracic aorta. The pulmonary vasculature is noncongested. Chronic interstitial thickening is similar to previous. There is chronic elevation of the right hemidiaphragm. Bibasilar airspace opacities are observed. No large pleural effusion or pneumothorax is seen. The skeletal structures are osteopenic. There is chronic deformity of the right proximal humerus with a right shoulder arthroplasty in place IMPRESSION: 1. Cardiomegaly with no radiographic evidence of congestive failure. 2. There are bibasilar dependent airspace opacities. This likely represents atelectasis. Correlate cl inically for evidence of a mild superimposed infectious/inflammatory pneumonitis. Electronically signed by: Link Youngblood M.D. 06/07/2019 10:31 AM
--- NOTE | 2019-06-07 10:35 | XRay Report ---
KUB CLINICAL HISTORY: Generalized abdominal pain. FINDINGS: 2 AP supine abdominal radiographs are compared to study dated 05/17/2014 and correlated with abdominal CT dated 09/09/2007. There is a nonobstructed abdominal bowel gas pattern. No evidence of intraperitoneal free air is seen on these supine images. A pill fragment projects over the right colo n. There are no abnormal abdominal calcifications. Small phleboliths are seen in the pelvis. There is advanced lumbosacral spondylosis and scoliosis. There is an age indeterminant compression deformity of T12. Fusion hardware is noted in the upper lumbar region. Bilateral hip arthroplasties are in plac e. There is chronic avulsion of the greater trochanter of the left femur. IMPRESSION: Nonobstructed abdominal bowel gas pattern. Electronically signed by: Link Youngblood M.D. 06/07/2019 10:34 AM
[2019-06-07 10:38] LABS: iSTAT Creatinine 0.8 mg/dl (0.6-1.3); iSTAT Hemoglobin 11.6 g/dl (12.0-16.0); iSTAT Ionized Calcium 1.15 mmol/l (1.12-1.32)
[2019-06-07 10:42] LABS: Basophils # (auto) 0.03 K/uL (0-0.2); Basophils % (auto) 0.2 %; Eosinophils # (auto) 0.02 K/uL (0-0.5); Eosinophils % (auto) 0.2 %; Immature Granulocytes # (auto) 0.17 K/uL (0.00-0.02); Immature Granulocytes % (auto) 1.3 %; Lymphocytes # (auto) 1.94 K/uL (1.2-3.4); Lymphocytes % (auto) 15.3 %; Monocytes # (auto) 0.88 K/uL (0.11-0.59)
[2019-06-07 10:44] LABS: BUN Creatinine Ratio 21.1 (10-20); Calcium 8.4 mg/dl (8.5-10.1); Creatinine Clr Calc Pharmacy 45.9 ml/min; Est GFR (African American) 69.9; Est GFR (Non-African American) 60.3
[2019-06-07 10:47] LABS: Albumin Globulin Ratio 0.4 (0.9-2); Bilirubin,Total 0.5 mg/dl (0.2-1)
[2019-06-07] MEDS ORDERED: IOVERSOL 100ml IV PRN (11:06)
--- NOTE | 2019-06-07 11:34 | CT Scan Report ---
CT SCAN OF THE ABDOMEN AND PELVIS WITH IV CONTRAST CLINICAL HISTORY: Generalized abdominal pain. COMPARISON STUDY: KUB dated 06/07/2019. Abdominal CT dated 09/09/2007. TECHNIQUE: Following the IV administration of 94 cc of Optiray 320, CT scan of the abdomen and pelvi s is performed from the lung bases to the proximal femora. Images are reviewed in the axial, sagittal , and coronal planes. IV contrast was administered without complication. A dose lowering technique wa s utilized adhering to the principles of ALARA. The examination is degraded by motion artifact, as we ll as by streak artifact from the arms which could not be elevated above the abdomen. CT DOSE: 864.98 mGy.cm FINDINGS: Lung bases: The heart is mildly enlarged and without pericardial effusion. The coronary arteries and mitral annulus are densely calcified. There are small pleural effusions with dense bibasilar airspace consolidation, right greater than left. Although not well assessed on this examination, there are qu estionable filling defects within the right lower lobe pulmonary arteries. There is a small hiatal he rnia. Liver: The contrast-enhanced liver is normal in size, contour, and attenuation. There is no intrahepa tic biliary ductal dilatation. The hepatic veins and portal veins are patent. Gallbladder: Not identified and presumed surgically absent. Spleen: Normal in size and attenuation. Pancreas: Moderately atrophic and grossly unremarkable. Adrenal glands: Unremarkable. Kidneys: The contrast enhanced kidneys demonstrate cortical atrophy and are without hydronephrosis. T he kidneys enhance symmetrically. There is a punctate nonobstructing right renal calculus. A subcenti meter cortical hypodensity in the lower pole of the left kidney likely represents a cyst but is too s mall for definitive characterization. Abdominal vasculature: There is advanced atherosclerotic calcification and mild ectasia of the abdomi nal aorta. Bowel: There is moderate sigmoid diverticulosis without CT evidence of acute diverticulitis. No bowel obstruction is seen. Liquid stool is noted in the right colon. There is no colonic wall thickening o r pericolonic inflammation. The appendix is not identified and reported surgically absent. Peritoneum: There is no intraperitoneal free air or abdominal ascites. Lymphadenopathy: None. Pelvic viscera: Evaluation of the pelvis is significantly degraded by streak artifact from bilateral hip arthroplasties. The bladder is distended and grossly unremarkable. The endometrium appears thicke hi for age, measuring up to 1.5 cm. No adnexal lesion is seen. Skeletal structures: The skeletal structures are osteopenic. There is postoperative change from carlos ectomy and posterior fusion seen from L2 -L4. Hardware at L4 has been removed. There are chronic comp ression deformities of L2 and L4. A mild to moderate superior endplate compression deformity of L1 is age indeterminant but new from 2006. A moderate to severe compression deformity of T12 is also age i ndeterminant and new from 2006. Fracture lucency is suspected and this may be acute to subacute. Ther e are small retropulsed fragments. No significant paravertebral edema is identified. No lytic or echo tic lesions are seen. Bilateral hip arthroplasties are in place. There is chronic avulsion of the gre ater trochanter of the left femur. IMPRESSION: 1. Streak and motion compromised examination. 2. Although not well assessed on this examination and possibly artifactual, there are questionable la rge filling defects involving branches of the right lower lobe pulmonary artery. Pulmonary embolus is not excluded. Consider correlation with a dedicated CT angiogram of the chest. 3. There are small pleural effusions with dense bibasilar airspace consolidation. 3. Cardiomegaly. 4. Liquid stool is noted in the right colon. There is no associated colonic wall thickening or opal lonic inflammation. Correlate clinically for evidence of a diarrheal illness. 5. Punctate nonobstructing right renal calculus. 6. The endometrium appears thickened measuring up to 1.5 cm. This is not well assessed by CT and concha elation with a nonemergent pelvic ultrasound and gynecology assessment is recommended. 7. There is a severe compression deformity of T12 and a mild to moderate superior endplate compressio n deformity of L1. These are age indeterminant but new from 2006. Fracture lucency is suggested invol ving T12 and this may be acute to subacute. Correlate for point tenderness. 8. Additional findings as above. Electronically signed by: Link Youngblood M.D. 06/07/2019 11:32 AM
[2019-06-07] MEDS ORDERED: SODIUM CHLORIDE 0.9% 1000ML 500 ML IV ONE (11:36)
[2019-06-07] MEDS ORDERED: VANCOMYCIN HCL 2,000 MG in SODIUM CHLORIDE 0.9% 500 ML IV ONE (11:55)
[2019-06-07] MEDS ORDERED: CEFEPIME 2,000 MG/20 ML VIAL IV STA (11:55)
[2019-06-07] MEDS ORDERED: VANCOMYCIN CONSULT ACTIVE PRN (11:55)
[2019-06-07] MEDS ORDERED: OPTIRAY 320 125ml IV PRN (11:57)
--- NOTE | 2019-06-07 12:47 | CT Scan Report ---
CT ANGIOGRAM OF THE CHEST CLINICAL HISTORY: Atypical chest pain. COMPARISON STUDY: Chest x-ray dated 06/07/2019. Chest CT dated 06/08/2013. TECHNIQUE: Following the IV administration of 82 cc of Optiray 320, CT angiogram of the chest was per formed from the upper abdomen to the thoracic inlet utilizing the pulmonary embolus protocol. Images are reviewed in the axial, sagittal, and coronal planes. 3-D MIPS images are created and assessed. IV contrast was administered without complication. A dose lowering technique was utilized adhering to the principles of ALARA. The examination is degraded by motion artifact, and by streak artifact from the arms which could not be elevated above the chest. CT DOSE: 659.61 mGy.cm FINDINGS: Thyroid: Imaged portions of the thyroid gland are normal in size and attenuation. Thoracic aorta: There is atherosclerotic calcification of the thoracic aorta. There is aneurysmal dil atation of the ascending thoracic aorta which measures up to 4.3 cm in diameter. The remainder of the thoracic aorta is normal in caliber, and the arch demonstrates standard 3-vessel anatomy. The thorac ic aorta is not well opacified. Pulmonary vasculature: The pulmonary trunk is markedly dilated, measuring 4.2 cm in transverse diamet er. This indicates pulmonary artery hypertension. There are extensive bilateral pulmonary emboli. Thr ombus is present within the distal right main pulmonary artery. This extends into the right upper, ri ght middle, and right lower lobe pulmonary arteries involving segmental and subsegmental branches. Th ere is also thrombus present within the left lower lobe pulmonary artery extending into segmental and subsegmental branches. Segmental pulmonary embolus is present within the lingular branches. Heart: The heart is enlarged and without pericardial effusion. The coronary arteries and mitral annul us are densely calcified. Lungs and pleural spaces: Evaluation of the lung parenchyma is degraded by motion artifact. The trach ea and central airways are clear. There are small pleural effusions with dense dependent bibasilar co nsolidation. Wedge-shaped consolidation is seen throughout the right lower lobe. Mediastinum: There are numerous subcentimeter mediastinal lymph nodes. Megan: Clear. Axillae: There is no axillary lymphadenopathy. Upper abdomen: A small hiatal hernia is noted. Partially visualized upper abdominal viscera is otherw ise grossly unremarkable. Skeletal structures: The skeletal structures are osteopenic. There is a severe compression deformity of T12. No lytic or blastic bony lesions are seen. A right shoulder arthroplasty is in place. Degener ative change is seen throughout the thoracic spine and in the left shoulder. IMPRESSION: 1. Extensive bilateral pulmonary embolus as above. 2. Cardiomegaly with evidence of pulmonary artery hypertension. 3. There is aneurysmal dilatation of the ascending thoracic aorta which measures up to 4.3 cm. 4. There is patchy consolidation throughout the right lower lobe with a somewhat wedge-shaped configu ration. This likely represents a large pulmonary infarct. Pneumonia could also have this appearance a nd clinical correlation will be required. 5. There are small pleural effusions with dense dependent airspace consolidation. Differential consid erations include atelectasis versus pneumonia. Again, clinical correlation will be required. 6. Trace pleural effusions. 7. Additional findings as above. Electronically signed by: Link Youngblood M.D. 06/07/2019 12:46 PM
[2019-06-07] MEDS ORDERED: Heparin IV Standard *NO* Bolus IV ONE (12:52)
[2019-06-07] MEDS: HEPARIN SODIUM/DEXTROSE 25,000 UNITS/500 ML BAG IV SCH (13:35)
--- NOTE | 2019-06-07 15:34 | History & Physical Report ---
Date of Service June 07, 2019 Assessment & Plan (1) Multiple pulmonary emboli: Admit to inpatient on telemetry Vital signs every 4 hours CBC CMP daily BNP pending Heparin drip continue for multiple pulmonary embolism Full pneumonia started cefepime and vancomycin in the ER DuoNebs every 4 hours as needed Trend down lactic acid Pulmonary consult for possible large patchy consolidation throughout the right lower lobe with somewhat wedge-shaped configuration which may represent large pu lmonary infarct. Spoke to Dr. Short and he recommended to continue heparin drip and IV fluids for rehydration. Per family request patient is DNI DNR. Present on Admission?: Yes (2) Pneumonia: Pending blood cultures, sputum culture pending Trend down lactic acid Continue cefepime, started doxycycline for MRSA coverage. Duo nebs every 4 hours as needed Solu-Medrol 30 mg IV every 12 Present on Admission?: Yes (3) Lactic acidosis: Repeat lactic acid Continue IV fluids Present on Admission?: Yes (4) Decubital ulcer: Wound care Present on Admission?: Yes (5) Dementia: Appears to be vascular in origin continue vitamin B12, donepezil 5 mg p.o. daily, Present on Admission?: Yes (6) Constipation, chronic: Continue senna S1 tablet p.o. daily, Colace 100 mg p.o. twice daily Present on Admission?: Yes (7) CAD (coronary artery disease): Coronary artery disease, hypertension , congestive heart failure Hold furosemide while patient is an acute pulmonary embolism Resuscitate fluid for now Continue metoprolol tartrate 50 mg p.o. twice daily, continue potassium chloride 10 mg p.o. twice daily, continue digoxin 125 mg p.o. daily Present on Admission?: Yes (8) GERD (gastroesophageal reflux disease): Continue ranitidine 150 mg p.o. daily (9) Depression: Continue citalopram 20 mg p.o. daily Present on Admission?: Yes History of Present Illness Chief Complaint: Shortness of breath Primary Care Provider: Carl Hyde Labs are reviewedPatient is a 88 years old female with coronary artery disease, A. fib's, hypertension, dementia rec, recurrent urinary tract infecti on, GERD, hypertension, who presents for [facility] for shortness of breath. Past medical history of LAD stent 2012 Paroxysmal atrial fibrillation not on anticoagulation due to history of falls, Dementia Hypertension PMR daily prednisone Echo from 2018/moderate MR, TR, pulmonary hypertension Proximal humeral fracture August 2018. Patient is non-smoking, care home resident Family history noncontributory On examination patient was resting in the bed, she is responsive to questions and answers appropriately. Her family is next to her bedside and they requested patient to be treated but if it comes to situation that her heart stops and she stopped breathing they responded that patient does not want any heroic measures to be taken and in regard of CODE STATUS they stated that they want patient to be DNI and DNR. Patient says she is increasingly short of breath, she had in the past hemoptysis but not recently. Chest x-rays were done and they show: Extensive bilateral pulmonary embolus located at the pulmonary tract and measuring 4.2 cm in transverse diameter. Cardiomegaly without evidence of pulmonary hypertension. There is aneurysmal dilatation of the ascending thoracic aorta which measures 4.3 cm. There is patchy consolidation throughout the right lower lobe with somewhat wedge shaped configuration. This likely represent large pulmonary infarct. Pneumonia could also have this appearance and clinical correlation will be required. There are small pleural effusions with dense dependent airspace consolidation. Differential consideration include atelectasis versus pneumonia. Trace pleural effusion. Viable cell 12.64 hemoglobin 11.4 hematocrit 34.7 platelets 300, PT, PTT , INR pending, sodium 135, potassium of 4, chloride 103 anion gap 7 BUN 18 creatinine 0.86 GFR 60, lactic acid 3.22 Albumin 2, lipase 83. Urine pending. Patient is bedbound. She is not ambulating at all. She is incontinent for stool and urine. She has a large decubital ulcer-grade 2-3. Heparin drip was already started in the ER for pulmonary embolism by the ER physician since family requested everything to be done except for resuscitation if patient stop breathing or her heart stops. She also received a dose of cefepime IV and vancomycin for presumed pneumonia and elevated lactate. It was made to admit patient to PCU on telemetry for further evaluation and treatment of pulmonary embolism, sepsis , lactic acidosis ,pneumonia and all other chronic issues. Allergies Allergy/AdvReac Type Severity Reaction Status Date / Time nitrofurantoin Allergy Intermediate MACROBID-HI Verified 06/07/19 10:31 VES colchicine Allergy Unknown UNKNOWN Verified 06/07/19 10:31 zolpidem AdvReac Mild CONFUSION, Verified 06/07/19 10:31 HALLUCINATIONS Home Medications Home Medications Medication Instructions Recorded Confirmed Type alum-mag hydroxide-simeth [Mi-Acid] 30 ml PO QID PRN 07/28/18 06/07/19 History aspirin 81 mg PO DAILY 07/28/18 06/07/19 History calcium carbonate [Oysco-500] 500 mg PO QAM 07/28/18 06/07/19 History cholecalciferol (vitamin D3) 1,000 unit PO DAILY 07/28/18 06/07/19 History [Vitamin D3] cyanocobalamin (vitamin B-12) 1,000 mcg PO DAILY 07/28/18 06/07/19 History [Vitamin B-12] docusate sodium [Colace] 100 mg PO BID 07/28/18 06/07/19 History donepezil 5 mg PO DAILY 07/28/18 06/07/19 History furosemide [Lasix] 20 mg PO DAILY 07/28/18 06/07/19 History polyethylene glycol 3350 [Miralax] 17 g PO DAILY 07/28/18 06/07/19 History prednisone 10 mg PO DAILY 07/28/18 06/07/19 History sennosides-docusate sodium 1 tab PO DAILY 07/28/18 06/07/19 History [Senna-S] acetaminophen 650 mg AZ Q6H PRN 05/16/19 06/07/19 History bisacodyl [Dulcolax (bisacodyl)] 10 mg [place] DAILY PRN 05/16/19 06/07/19 History ferrous gluconate 324 mg PO TID 05/16/19 06/07/19 History citalopram 20 mg PO DAILY 06/07/19 06/07/19 History digoxin [Digox] 125 mcg PO DAILY 06/07/19 06/07/19 History fluconazole 100 mg PO DAILY 06/07/19 06/07/19 History metoprolol tartrate 50 mg PO BID 06/07/19 06/07/19 History potassium chloride 10 meq PO BID 06/07/19 06/07/19 History ranitidine HCl [Zantac] 150 mg PO DAILY 06/07/19 06/07/19 History Past Med/Surg History Medical History CAD (coronary artery disease) (Chronic) s/p stent to LAD in 2013 In 2012, the patient was seen as an outpatient by Dr. Rodriguez, with complaint of symptoms consistent with unstable angina, she was found to have significant lateral ST segment depression on EKG and was therefore hospitalized and underwent cardiac catheterization on 07/03/13 with findings of an ulcerated culprit plaque in the first diagonal branch of the LAD with patent coronaries otherwise. Atrial fibrillation (Chronic) PAF. hospitalized once for A fib with RVR. On COUMADIN Dementia (Chronic) Polymyalgia rheumatica (Chronic) On prednisone 10mg PO daily. GERD (gastroesophageal reflux disease) (Chronic) HTN (hypertension) (Chronic) Fall (Acute) Patient reports fall was preceded by dizziness. Denies LOC. This happened last month resulting in an ER visit with large knee effusion. Basal cell carcinoma of face (Resolved Unknown) NSTEMI (non-ST elevated myocardial infarction) (Resolved) 2012 Alzheimer disease (Chronic) NSTEMI (non-ST elevated myocardial infarction) (Resolved) Anemia Surgical History History of total hip arthroplasty History of colonoscopy History of spinal fusion Family History Other Family history of high blood pressure Social History Preferred Language: Bruneian Communication Ability: Effective Manager Fast Food Required: Yes Beliefs That Will Affect Care: None marital status: / Current Living Situation: Personal Care Facility Feels Safe at Home: Yes Smoking Status: Never smoker Second Hand Exposure: No ; Hx Alcohol Use: No Hx Substance Use: No Review of Systems Review of Systems: All systems reviewed & are unremarkable except as noted in HPI & below Physical Exam Constitutional: WD/WN, vitals as above well developed and + frail appearing Eyes: PERRL, conjunctivae normal, anicteric sclerae ENMT: external ear and nose normal, oropharynx normal Neck: trachea midline, no thyromegaly Respiratory: + dullness to percussion Auscultation: + crackles and + wheezes Patient is oxygenating above 92% on room air Cardiovascular: Heart Sounds: normal S1, normal S2 and + murmur Palpation: + palpable S3 Vessels: + JVD Chest (Breasts): normal inspection/palpation of breasts Gastrointestinal (Abdomen): normal bowel sounds, soft, nontender, no hepatosplenomegaly Musculoskeletal: no cyanosis or clubbing, extremities motor strength 5/5 Skin: Large decubitus located at the back with macerated skin appears to be between second and third stage. Neurologic: patellar DTR's 2+ bilat, sensation intact Psychiatric: A+Ox3, euthymic affect Genitourinary: Incontinent for both stool and urine Lymphatic: no cervical or axillary lymphadenopathy Results & Data Vital Signs (Past 12 Hours) Vital Signs Temp Pulse Resp BP Pulse Ox 06/07/19 15:00 79 30 H 95/72 L 06/07/19 14:30 80 32 H 89 L 06/07/19 14:03 74 33 H 107/63 94 06/07/19 14:00 87 31 H 90 06/07/19 13:30 78 31 H 93 06/07/19 13:16 85 30 H 70/49 L 95 06/07/19 13:00 77 27 H 06/07/19 12:30 75 30 H 06/07/19 12:00 77 29 H 06/07/19 11:30 77 27 H 06/07/19 11:00 89 06/07/19 10:30 87 32 H 95 06/07/19 10:04 96 06/07/19 10:02 96 H 34 H 96 06/07/19 10:00 95 H 29 H 118/70 06/07/19 09:43 36.9 C 116 H 19 118/60 94 Code Status & VTE Plan Code Status DNR/DNI VTE Prophylaxis Plan VTE Prophylaxis will be ordered: Yes PG Care Time/CCT Total # of Minutes Spent Total Time Spent with Patient: Total time spent is greater than 50% in coordination of care (as documented) at patient's floor/unit and/or counseling patient: (1) Pneumonia Laterality: right Lung location: lower lobe of lung Pneumonia type: due to unspecified organism Qualified Code(s): J18.1 - Lobar pneumonia, unspecified organism
--- NOTE | 2019-06-07 18:03 | Emergency Department Note ---
Entered by Sherron Chowdhury acting as a scribe for Ty Perez MD History of Present Illness General Chief complaint: Vomiting Source: patient and EMS History of Present Illness Onset (ago): unknown Location: chest Pain Consistency: + other (currently has none) Quality: + other (vomiting) Associated symptoms: + cough (slightly wet) and + other (Negative vomiting today, abdominal pain); no chest pain and no shortness of breath The patient is a 88 white female w/ PMHx of Afib (not on anticoagulations), DVT prophylaxis, septic shock, CAD, GERD, HTN, NSTEMI who presents to the ED w/ CC of vomiting with an unknown onset. As per EMS, the patient has a cough which is slightly wet with rhonchi on the left. EMS states the initial call was about the patient having bloody emesis however this is currently unclear. When asked, the patient denies any abdominal pain, SOB, chest pain, or vomiting today. She was recently admitted for UTI related sepsis. She was admitted on May 16 and stayed until May 26. Discharged to SNF. She had positive blood cultures on May 16. She was discharged on ertapenem 1 g for 5 days. Pt is a DNR. Home Medications Home Medications Medication Instructions Recorded Confirmed Type alum-mag hydroxide-simeth [Mi-Acid] 30 ml PO QID PRN 07/28/18 06/07/19 History aspirin 81 mg PO DAILY 07/28/18 06/07/19 History calcium carbonate [Oysco-500] 500 mg PO QAM 07/28/18 06/07/19 History cholecalciferol (vitamin D3) 1,000 unit PO DAILY 07/28/18 06/07/19 History [Vitamin D3] cyanocobalamin (vitamin B-12) 1,000 mcg PO DAILY 07/28/18 06/07/19 History [Vitamin B-12] docusate sodium [Colace] 100 mg PO BID 07/28/18 06/07/19 History donepezil 5 mg PO DAILY 07/28/18 06/07/19 History furosemide [Lasix] 20 mg PO DAILY 07/28/18 06/07/19 History polyethylene glycol 3350 [Miralax] 17 g PO DAILY 07/28/18 06/07/19 History prednisone 10 mg PO DAILY 07/28/18 06/07/19 History sennosides-docusate sodium 1 tab PO DAILY 07/28/18 06/07/19 History [Senna-S] acetaminophen 650 mg AZ Q6H PRN 05/16/19 06/07/19 History bisacodyl [Dulcolax (bisacodyl)] 10 mg AZ DAILY PRN 05/16/19 06/07/19 History ferrous gluconate 324 mg PO TID 05/16/19 06/07/19 History citalopram 20 mg PO DAILY 06/07/19 06/07/19 History digoxin [Digox] 125 mcg PO DAILY 06/07/19 06/07/19 History fluconazole 100 mg PO DAILY 06/07/19 06/07/19 History metoprolol tartrate 50 mg PO BID 06/07/19 06/07/19 History potassium chloride 10 meq PO BID 06/07/19 06/07/19 History ranitidine HCl [Zantac] 150 mg PO DAILY 06/07/19 06/07/19 History Allergies Allergy/AdvReac Type Severity Reaction Status Date / Time nitrofurantoin Allergy Intermediate MACROBID-HI Verified 06/07/19 10:31 VES colchicine Allergy Unknown UNKNOWN Verified 06/07/19 10:31 zolpidem AdvReac Mild CONFUSION, Verified 06/07/19 10:31 HALLUCINATIONS Past Med/Surg History Medical History CAD (coronary artery disease) (Chronic) s/p stent to LAD in 2012 In 2012, the patient was seen as an outpatient by Dr. Rodriguez, with complaint of symptoms consistent with unstable angina, she was found to have significant lateral ST segment depression on EKG and was therefore hospitalized and underwent cardiac catheterization on 07/03/13 with findings of an ulcerated culprit plaque in the first diagonal branch of the LAD with patent coronaries otherwise. Atrial fibrillation (Chronic) PAF. hospitalized once for A fib with RVR. On COUMADIN Dementia (Chronic) Polymyalgia rheumatica (Chronic) On prednisone 10mg PO daily. GERD (gastroesophageal reflux disease) (Chronic) HTN (hypertension) (Chronic) Fall (Acute) Patient reports fall was preceded by dizziness. Denies LOC. This happened last month resulting in an ER visit with large knee effusion. 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 and A total of 10 systems reviewed and were otherwise negative Physical Exam Vital Signs Vital Signs - 24 hr 06/07/19 09:43 06/07/19 10:00 06/07/19 10:02 Temperature 36.9 C Temperature Source Oral Sepsis Recent Fever Within 48 Hours No Sepsis Action Taken by Nursing No Action Required Pulse Rate 116 H 95 H 96 H Pulse Rate from SpO2 Sensor 98 H Pulse Rhythm Irregular Respiratory Rate 19 29 H 34 H Respiratory Effort / Characteristics Non-Labored Respiratory Depth Normal Blood Pressure 118/60 118/70 Blood Pressure Mean 79 86 Pulse Oximetry 94 96 Oxygen Delivery Method Room Air 06/07/19 10:04 06/07/19 10:30 06/07/19 11:00 Temperature Temperature Source Sepsis Recent Fever Within 48 Hours Sepsis Action Taken by Nursing Pulse Rate 87 89 Pulse Rate from SpO2 Sensor 93 H Pulse Rhythm Respiratory Rate 32 H Respiratory Effort / Characteristics Respiratory Depth Blood Pressure Blood Pressure Mean Pulse Oximetry 96 95 Oxygen Delivery Method Room Air 06/07/19 11:30 06/07/19 12:00 06/07/19 12:30 Temperature Temperature Source Sepsis Recent Fever Within 48 Hours Sepsis Action Taken by Nursing Pulse Rate 77 77 75 Pulse Rate from SpO2 Sensor Pulse Rhythm Respiratory Rate 27 H 29 H 30 H Respiratory Effort / Characteristics Respiratory Depth Blood Pressure Blood Pressure Mean Pulse Oximetry Oxygen Delivery Method 06/07/19 13:00 06/07/19 13:16 06/07/19 13:30 Temperature Temperature Source Sepsis Recent Fever Within 48 Hours Sepsis Action Taken by Nursing Pulse Rate 77 85 78 Pulse Rate from SpO2 Sensor 79 49 L Pulse Rhythm Respiratory Rate 27 H 30 H 31 H Respiratory Effort / Characteristics Respiratory Depth Blood Pressure 70/49 L Blood Pressure Mean 56 Pulse Oximetry 95 93 Oxygen Delivery Method 06/07/19 14:00 06/07/19 14:03 06/07/19 14:30 Temperature Temperature Source Sepsis Recent Fever Within 48 Hours Sepsis Action Taken by Nursing Pulse Rate 87 74 80 Pulse Rate from SpO2 Sensor 78 78 86 Pulse Rhythm Respiratory Rate 31 H 33 H 32 H Respiratory Effort / Characteristics Respiratory Depth Blood Pressure 107/63 Blood Pressure Mean 77 Pulse Oximetry 90 94 89 L Oxygen Delivery Method 06/07/19 15:00 06/07/19 15:30 06/07/19 16:00 Temperature Temperature Source Sepsis Recent Fever Within 48 Hours Sepsis Action Taken by Nursing Pulse Rate 79 88 85 Pulse Rate from SpO2 Sensor Pulse Rhythm Respiratory Rate 30 H 29 H 23 Respiratory Effort / Characteristics Respiratory Depth Blood Pressure 95/72 L 97/69 L Blood Pressure Mean 79 78 Pulse Oximetry Oxygen Delivery Method GENERAL: Well appearing, well nourished, NAD, non-toxic. False teeth in place. EYE EXAM: Normal conjunctiva. PERRL, no anisocoria and EOM's grossly intact w/o pain. OROPHARYNX: Moist mucous membranes. Grossly normal dentition. NECK: Supple, no nuchal rigidity, no adenopathy, non-tender. No signs of meningismus. LUNGS: Rhonchi bilaterally. Left greater than right. Crackles bilateral bases. HEART: NSR, no MRG. ABDOMEN: Abdomen soft, normo-active bowel sounds, no masses, no rebound or guarding. Mild diffuse abdominal discomfort. Not peritonitic. BACK: No CVA TTP. SKIN: No rashes and no bruising. UPPER EXTREMITIES: Upper extremities are grossly normal. LOWER EXTREMITIES: 1+ BLE edema. No calf pain. NEURO EXAM: A&O x3, cranial nerves II-XII grossly intact, normal speech, moves all 4 extremities on command w/o issue. Course 0958: Past medical records reviewed. The patient was evaluated in room B6. A complete history and physical exam was performed. 1038: Pt has normal kidney function and a lactate of 3.2. 1253: I discussed the patients case with her family at this time. 1313: I discussed the patients case with Dr. Vance, [facility] Hospitalist. She will evaluate the patient for further management. Administered Medications Aspirin (Ecotrin Ectab) 81 mg PO DAILY [facility] Stop: 07/08/19 08:59 Last Admin: 06/08/19 07:58 Dose: 81 mg Documented by: [id number] Calcium Carbonate (Os-Candelario 500) 1,250 mg PO QAM DARRELL Stop: 07/08/19 08:59 Last Admin: 06/08/19 07:59 Dose: 1,250 mg Documented by: [id number] Citalopram Hydrobromide (Celexa) 20 mg PO DAILY D[facility]RE[facility] Stop: 07/08/19 08:59 Last Admin: 06/08/19 07:57 Dose: 20 mg Documented by: [id number] Cyanocobalamin (Vitamin B-12) 1,000 mcg PO DAILY D[facility]RE[facility] Stop: 07/08/19 08:59 Last Admin: 06/08/19 07:59 Dose: 1,000 mcg Documented by: [id number] Digoxin (Lanoxin) 0.125 mg PO DAILY@1600 [facility] Stop: 07/08/19 15:59 Last Admin: 06/08/19 16:52 Dose: 0.125 mg Documented by: [id number] Docusate Sodium (Colace) 100 mg PO BID [facility] Stop: 07/07/19 20:59 Last Admin: 06/08/19 07:57 Dose: 100 mg Documented by: [id number] Admin: 06/07/19 20:52 Dose: 100 mg Documented by: [id number] Donepezil HCl (Aricept) 5 mg PO DAILY D[facility]RE[facility] Stop: 07/08/19 08:59 Last Admin: 06/08/19 07:57 Dose: 5 mg Documented by: [id number] Ferrous Gluconate (Ferrous Gluconate) 324 mg PO TID [facility] Stop: 07/07/19 20:59 Last Admin: 06/08/19 12:47 Dose: 324 mg Documented by: [id number] Admin: 06/08/19 07:58 Dose: 324 mg Documented by: [id number] Admin: 06/07/19 20:53 Dose: 324 mg Documented by: [id number] Heparin Sodium/Dextrose (Heparin Sodium/Dextrose) 25,000 units in 500 mls @ 23 mls/hr IV .[id number] DARRELL; Protocol Stop: 07/07/19 12:59 Last Titration: 06/08/19 13:54 Dose: 1,150 units/hr, 23 mls/hr Documented by: [id number] Cosigned by: [id number] Admin: 06/08/19 12:47 Dose: 1,300 units/hr, 26 mls/hr Documented by: [id number] Cosigned by: [id number] Titration: 06/08/19 10:47 Dose: 1,300 units/hr, 26 mls/hr Documented by: [id number] Cosigned by: [id number] Titration: 06/08/19 07:26 Dose: 1,300 units/hr, 26 mls/hr Documented by: [id number] Cosigned by: [id number] Titration: 06/08/19 06:34 Dose: 1,300 units/hr, 26 mls/hr Documented by: [id number] Cosigned by: [id number] Titration: 06/07/19 23:03 Dose: 1,150 units/hr, 23 mls/hr Documented by: [id number] Cosigned by: [id number] Titration: 06/07/19 19:00 Dose: 1,150 units/hr, 23 mls/hr Documented by: [id number] Cosigned by: [id number] Admin: 06/07/19 13:35 Dose: 1,150 units/hr, 23 mls/hr Documented by: [id number] Cosigned by: [id number] Cefepime HCl 2,000 mg/ Syringe 12.5 mls @ 5.5 mls/min IV Q12H DARRELL; Protocol Stop: 06/14/19 21:59 Last Admin: 06/08/19 09:53 Dose: 5.5 mls/min Documented by: [id number] Admin: 06/07/19 22:15 Dose: 5.5 mls/min Documented by: [id number] Doxycycline Hyclate 100 mg/ (Dextrose) 110 mls @ 50 mls/hr IV BID DARRELL Stop: 06/14/19 20:59 Last Infusion: 06/08/19 10:16 Dose: 0 mls/hr Documented by: [id number] Admin: 06/08/19 08:01 Dose: 50 mls/hr Documented by: [id number] Infusion: 06/07/19 23:22 Dose: 0 mls/hr Documented by: [id number] Admin: 06/07/19 20:53 Dose: 50 mls/hr Documented by: [id number] Metoprolol Tartrate (Lopressor) 50 mg PO BID D[facility]RELL Stop: 07/07/19 20:59 Last Admin: 06/08/19 07:58 Dose: 50 mg Documented by: [id number] Admin: 06/07/19 20:51 Dose: 50 mg Documented by: [id number] Polyethylene Glycol (Miralax Powder Packet) 17 gm PO QAM DARRELL Stop: 07/08/19 08:59 Last Admin: 06/08/19 07:58 Dose: 17 gm Documented by: [id number] Potassium Chloride (Klor-Con M10) 10 meq PO BID D[facility]RELL Stop: 07/07/19 20:59 Last Admin: 06/08/19 07:58 Dose: 10 meq Documented by: [id number] Admin: 06/07/19 20:53 Dose: 10 meq Documented by: [id number] Ranitidine HCl (Zantac) 150 mg PO DAILY [facility] Stop: 07/08/19 08:59 Last Admin: 06/08/19 07:59 Dose: 150 mg Documented by: [id number] Senna/Docusate Sodium (Senokot S) 1 tab PO DAILY [facility] Stop: 07/08/19 08:59 Last Admin: 06/08/19 07:59 Dose: 1 tab Documented by: [id number] Vitamin D (Vitamin D3) 1,000 units PO DAILY [facility] Stop: 07/08/19 08:59 Last Admin: 06/08/19 07:59 Dose: 1,000 units Documented by: [id number] Discontinued Medications Heparin Sodium/Dextrose () 1 ea IV ONE ONE; Protocol Stop: 06/07/19 12:53 Last Admin: 06/07/19 13:38 Dose: Not Given Documented by: [id number] Sodium Chloride (Nss) 500 mls @ 999 mls/hr IV .Q31M DARRELL Stop: 06/07/19 10:45 Last Infusion: 06/07/19 11:40 Dose: 0 mls/hr Documented by: [id number] Admin: 06/07/19 10:35 Dose: 999 mls/hr Documented by: [id number] Sodium Chloride (Nss 1000ml) 500 mls @ 999 mls/hr IV .Q31M ONE Stop: 06/07/19 12:06 Last Infusion: 06/07/19 13:11 Dose: 0 mls/hr Documented by: [id number] Admin: 06/07/19 12:20 Dose: 999 mls/hr Documented by: [id number] Vancomycin HCl 2,000 mg/ (Sodium Chloride) 540 mls @ 200 mls/hr IV NOW ONE Stop: 06/07/19 14:36 Last Infusion: 06/07/19 16:10 Dose: 0 mls/hr Documented by: [id number] Admin: 06/07/19 13:15 Dose: 200 mls/hr Documented by: [id number] Cefepime HCl (Maxipime) 2,000 mg in 20 mls @ 5 mls/min IV NOW STA; Protocol Stop: 06/07/19 11:58 Last Admin: 06/07/19 12:20 Dose: 5 mls/min Documented by: [id number] Sodium Chloride (Nss 1000ml) 1,000 mls @ 80 mls/hr IV .[id number] DARRELL Stop: 06/08/19 06:44 Last Infusion: 06/08/19 07:55 Dose: 0 mls/hr Documented by: [id number] Admin: 06/07/19 19:11 Dose: 80 mls/hr Documented by: [id number] Heparin Sodium (Porcine) 3,000 (units/ Syringe) 3 mls @ 10 mls/min IV NOW ONE Stop: 06/08/19 06:46 Last Admin: 06/08/19 07:54 Dose: 10 mls/min Documented by: [id number] Cosigned by: [id number] Ioversol (Optiray 320 100ml) 94 ml IV ONCE PRN PRN Reason: Interaction Checking Stop: 06/11/19 11:05 Last Admin: 06/07/19 11:07 Dose: 94 ml Documented by: [id number] Ioversol (Optiray 320 125ml) 82 ml IV ONCE PRN PRN Reason: Interaction Checking Stop: 06/11/19 11:56 Last Admin: 06/07/19 11:57 Dose: 82 ml Documented by: [id number] Ondansetron HCl (Zofran) 4 mg IV NOW STA Stop: 06/07/19 10:05 Last Admin: 06/07/19 10:35 Dose: 4 mg Documented by: [id number] Warfarin Sodium (Coumadin) 5 mg PO NOW ONE Stop: 06/08/19 16:05 Last Admin: 06/08/19 16:51 Dose: 5 mg Documented by: [id number] Medical Decision Making Medical Records Attestation: I reviewed the patient's medical records. Home Medications Current Medication List: was personally reviewed by me Laboratory Data Attestation: I reviewed the patient's lab results. Result diagrams: 06/08/19 05:37 06/08/19 05:37 Lab Results 06/07/19 06/07/19 06/07/19 Range/Units 10:15 10:15 10:15 WBC 12.64 H (4.8-10.8) K/uL RBC 3.64 L (4.2-5.4) M/uL Hgb 11.4 L (12.0-16.0) g/dL POC Hgb (12.0-16.0) g/dl Hct 34.7 L (37-47) % POC Hct (37-47) % MCV 95.3 (80-100) fL MCH 31.3 (25-34) pg MCHC 32.9 (32-36) g/dL RDW Std Deviation 56.1 H (36.4-46.3) fL RDW Coeff of Debbie 16.1 H (11.5-14.5) % Plt Count 300 (130-400) K/uL MPV 9.3 (7.4-10.4) fL Immature Gran % (Auto) 1.3 % Neut % (Auto) 76.0 % Lymph % (Auto) 15.3 % Baca % (Auto) 7.0 % Eos % (Auto) 0.2 % Baso % (Auto) 0.2 % Immature Gran # (Auto) 0.17 H (0.00-0.02) K/uL Neut # (Auto) 9.60 H (1.4-6.5) K/uL Lymph # (Auto) 1.94 (1.2-3.4) K/uL Baca # (Auto) 0.88 H (0.11-0.59) K/uL Eos # (Auto) 0.02 (0-0.5) K/uL Baso # (Auto) 0.03 (0-0.2) K/uL Absolute Nucleated RBC 0.02 H (0-0) K/uL Nucleated RBC % (auto) 0.1 % POC Sodium (135-144) mEq/L Sodium 137 (136-145) mmol/L POC Potassium (3.3-5.0) mEq/L Potassium 4.0 (3.5-5.1) mmol/L POC Chloride (101-112) mEq/L Chloride 103 (98-107) mmol/L Carbon Dioxide 27 (21-32) mmol/L POC Total CO2 (24-31) mEq/l Anion Gap 7.0 (3-11) POC Anion Gap (16-25) mmol/L POC BUN (7-18) mg/dl BUN 18 (7-18) mg/dl Creatinine 0.86 (0.6-1.2) mg/dl POC Creatinine (0.6-1.3) mg/dl Est Cr Clr Drug Dosing 45.9 ml/min Est GFR ( Amer) 69.9 Est GFR (Non-Af Amer) 60.3 BUN/Creatinine Ratio 21.1 H (10-20) Glucose 125 H (70-99) mg/dl POC Glucose (other) (70-99) mg/dl POC Lactic Acid Alonzo (0.90-1.70) mmol/L Calcium 8.4 L (8.5-10.1) mg/dl POC Ioniz Calcium Rick (1.12-1.32) mmol/l Total Bilirubin 0.5 (0.2-1) mg/dl AST 26 (15-37) U/L ALT 18 (12-78) U/L Alkaline Phosphatase 90 (45-117) U/L Total Protein 7.0 (6.4-8.2) gm/dl Albumin 2.0 L (3.4-5.0) gm/dl Globulin 5.0 H (2.5-4.0) gm/dl Albumin/Globulin Ratio 0.4 L (0.9-2) Lipase 83 (73-393) U/L Procalcitonin 0.30 (0-0.5) ng/ml 06/07/19 06/07/19 Range/Units 10:20 10:24 WBC (4.8-10.8) K/uL RBC (4.2-5.4) M/uL Hgb (12.0-16.0) g/dL POC Hgb 11.6 L (12.0-16.0) g/dl Hct (37-47) % POC Hct 34 L (37-47) % MCV (80-100) fL MCH (25-34) pg MCHC (32-36) g/dL RDW Std Deviation (36.4-46.3) fL RDW Coeff of Debbie (11.5-14.5) % Plt Count (130-400) K/uL MPV (7.4-10.4) fL Immature Gran % (Auto) % Neut % (Auto) % Lymph % (Auto) % Baca % (Auto) % Eos % (Auto) % Baso % (Auto) % Immature Gran # (Auto) (0.00-0.02) K/uL Neut # (Auto) (1.4-6.5) K/uL Lymph # (Auto) (1.2-3.4) K/uL Baca # (Auto) (0.11-0.59) K/uL Eos # (Auto) (0-0.5) K/uL Baso # (Auto) (0-0.2) K/uL Absolute Nucleated RBC (0-0) K/uL Nucleated RBC % (auto) % POC Sodium 135 (135-144) mEq/L Sodium (136-145) mmol/L POC Potassium 4.0 (3.3-5.0) mEq/L Potassium (3.5-5.1) mmol/L POC Chloride 100 L (101-112) mEq/L Chloride (98-107) mmol/L Carbon Dioxide (21-32) mmol/L POC Total CO2 22 L (24-31) mEq/l Anion Gap (3-11) POC Anion Gap 18.0 (16-25) mmol/L POC BUN 18 (7-18) mg/dl BUN (7-18) mg/dl Creatinine (0.6-1.2) mg/dl POC Creatinine 0.8 (0.6-1.3) mg/dl Est Cr Clr Drug Dosing ml/min Est GFR ( Amer) Est GFR (Non-Af Amer) BUN/Creatinine Ratio (10-20) Glucose (70-99) mg/dl POC Glucose (other) 130 H (70-99) mg/dl POC Lactic Acid Alonzo 3.22 H (0.90-1.70) mmol/L Calcium (8.5-10.1) mg/dl POC Ioniz Calcium Rick 1.15 (1.12-1.32) mmol/l Total Bilirubin (0.2-1) mg/dl AST (15-37) U/L ALT (12-78) U/L Alkaline Phosphatase (45-117) U/L Total Protein (6.4-8.2) gm/dl Albumin (3.4-5.0) gm/dl Globulin (2.5-4.0) gm/dl Albumin/Globulin Ratio (0.9-2) Lipase (73-393) U/L Procalcitonin (0-0.5) ng/ml Imaging Data Radiologist's Impression: Radiology results as stated below per my review and the radiologist's interpretation: CT SCAN OF THE ABDOMEN AND PELVIS WITH IV CONTRAST CLINICAL HISTORY: Generalized abdominal pain. COMPARISON STUDY: [facility] dated 06/07/2019. Abdominal CT dated 09/09/2007. TECHNIQUE: Following the IV administration of 94 cc of Optiray 320, CT scan of the abdomen and pelvis is performed from the lung bases to the proximal femora. Images are reviewed in the axial, sagittal, and coronal planes. IV contrast was administered without complication. A dose lowering technique was utilized adhering to the principles of ALARA. The examination is degraded by motion artifact, as well as by streak artifact from the arms which could not be elevated above the abdomen. CT DOSE: 864.98 mGy.cm FINDINGS: Lung bases: The heart is mildly enlarged and without pericardial effusion. The coronary arteries and mitral annulus are densely calcified. There are small pleural effusions with dense bibasilar airspace consolidation, right greater than left. Although not well assessed on this examination, there are questionable filling defects within the right lower lobe pulmonary arteries. There is a small hiatal hernia. Liver: The contrast-enhanced liver is normal in size, contour, and attenuation. There is no intrahepatic biliary ductal dilatation. The hepatic veins and portal veins are patent. Gallbladder: Not identified and presumed surgically absent. Spleen: Normal in size and attenuation. Pancreas: Moderately atrophic and grossly unremarkable. Adrenal glands: Unremarkable. Kidneys: The contrast enhanced kidneys demonstrate cortical atrophy and are without hydronephrosis. The kidneys enhance symmetrically. There is a punctate nonobstructing right renal calculus. A subcentimeter cortical hypodensity in the lower pole of the left kidney likely represents a cyst but is too small for definitive characterization. Abdominal vasculature: There is advanced atherosclerotic calcification and mild ectasia of the abdominal aorta. Bowel: There is moderate sigmoid diverticulosis without CT evidence of acute diverticulitis. No bowel obstruction is seen. Liquid stool is noted in the right colon. There is no colonic wall thickening or pericolonic inflammation. The appendix is not identified and reported surgically absent. Peritoneum: There is no intraperitoneal free air or abdominal ascites. Lymphadenopathy: None. Pelvic viscera: Evaluation of the pelvis is significantly degraded by streak artifact from bilateral hip arthroplasties. The bladder is distended and grossly unremarkable. The endometrium appears thickened for age, measuring up to 1.5 cm. No adnexal lesion is seen. Skeletal structures: The skeletal structures are osteopenic. There is postoperative change from laminectomy and posterior fusion seen from L2 -L4. Hardware at L4 has been removed. There are chronic compression deformities of L2 and L4. A mild to moderate superior endplate compression deformity of L1 is age indeterminant but new from 2006. A moderate to severe compression deformity of T12 is also age indeterminant and new from 2006. Fracture lucency is suspected and this may be acute to subacute. There are small retropulsed fragments. No significant paravertebral edema is identified. No lytic or blastic lesions are seen. Bilateral hip arthroplasties are in place. There is chronic avulsion of the greater trochanter of the left femur. IMPRESSION: 1. Streak and motion compromised examination. 2. Although not well assessed on this examination and possibly artifactual, there are questionable large filling defects involving branches of the right lower lobe pulmonary artery. Pulmonary embolus is not excluded. Consider correlation with a dedicated CT angiogram of the chest. 3. There are small pleural effusions with dense bibasilar airspace consolidation. 3. Cardiomegaly. 4. Liquid stool is noted in the right colon. There is no associated colonic wall thickening or pericolonic inflammation. Correlate clinically for evidence of a diarrheal illness. 5. Punctate nonobstructing right renal calculus. 6. The endometrium appears thickened measuring up to 1.5 cm. This is not well assessed by CT and correlation with a nonemergent pelvic ultrasound and gynecology assessment is recommended. 7. There is a severe compression deformity of T12 and a mild to moderate superior endplate compression deformity of L1. These are age indeterminant but new from 2006. Fracture lucency is suggested involving T12 and this may be acute to subacute. Correlate for point tenderness. 8. Additional findings as above. Electronically signed by: Link Youngblood M.D. 06/07/2019 11:32 AM [facility] CLINICAL HISTORY: Generalized abdominal pain. FINDINGS: 2 AP supine abdominal radiographs are compared to study dated 05/17/2014 and correlated with abdominal CT dated 09/09/2007. There is a nonobstructed abdominal bowel gas pattern. No evidence of intraperitoneal free air is seen on these supine images. A pill fragment projects over the right colon. There are no abnormal abdominal calcifications. Small phleboliths are seen in the pelvis. There is advanced lumbosacral spondylosis and scoliosis. There is an age indeterminant compression deformity of T12. Fusion hardware is noted in the upper lumbar region. Bilateral hip arthroplasties are in place. There is chronic avulsion of the greater trochanter of the left femur. IMPRESSION: Nonobstructed abdominal bowel gas pattern. Electronically signed by: Link Youngblood M.D. 06/07/2019 10:34 AM SINGLE VIEW CHEST CLINICAL HISTORY: Rhonchi on physical examination. FINDINGS: An AP, portable, upright chest radiograph is compared to study 05/16/2019 and correlated with chest CT dated 06/08/2013. The examination is degraded by portable technique, patient rotation, and apical lordotic positioning. The heart is enlarged and there is atherosclerotic calcification of the thoracic aorta. The pulmonary vasculature is noncongested. Chronic interstitial thickening is similar to previous. There is chronic elevation of the right hemidiaphragm. Bibasilar airspace opacities are observed. No large pleural effusion or pneumothorax is seen. The skeletal structures are osteopenic. There is chronic deformity of the right proximal humerus with a right shoulder arthroplasty in place IMPRESSION: 1. Cardiomegaly with no radiographic evidence of congestive failure. 2. There are bibasilar dependent airspace opacities. This likely represents atelectasis. Correlate clinically for evidence of a mild superimposed infectious/inflammatory pneumonitis. Electronically signed by: Link Youngblood M.D. 06/07/2019 10:[address] ANGIOGRAM OF THE CHEST CLINICAL HISTORY: Atypical chest pain. COMPARISON STUDY: Chest x-ray dated 06/07/2019. Chest CT dated 06/08/2013. TECHNIQUE: Following the IV administration of 82 cc of Optiray 320, CT angiogram of the chest was performed from the upper abdomen to the thoracic inlet utilizing the pulmonary embolus protocol. Images are reviewed in the axial, sagittal, and coronal planes. 3-D MIPS images are created and assessed. IV contrast was administered without complication. A dose lowering technique was utilized adhering to the principles of ALARA. The examination is degraded by mo tion artifact, and by streak artifact from the arms which could not be elevated above the chest. CT DOSE: 659.61 mGy.cm FINDINGS: Thyroid: Imaged portions of the thyroid gland are normal in size and attenuation. Thoracic aorta: There is atherosclerotic calcification of the thoracic aorta. There is aneurysmal dilatation of the ascending thoracic aorta which measures up to 4.3 cm in diameter. The remainder of the thoracic aorta is normal in caliber, and the arch demonstrates standard 3-vessel anatomy. The thoracic aorta is not well opacified. Pulmonary vasculature: The pulmonary trunk is markedly dilated, measuring 4.2 cm in transverse diameter. This indicates pulmonary artery hypertension. There are extensive bilateral pulmonary emboli. Thrombus is present within the distal right main pulmonary artery. This extends into the right upper, right middle, and right lower lobe pulmonary arteries involving segmental and subsegmental branches. There is also thrombus present within the left lower lobe pulmonary artery extending into segmental and subsegmental branches. Segmental pulmonary embolus is present within the lingular branches. Heart: The heart is enlarged and without pericardial effusion. The coronary arteries and mitral annulus are densely calcified. Lungs and pleural spaces: Evaluation of the lung parenchyma is degraded by motion artifact. The trachea and central airways are clear. There are small pleural effusions with dense dependent bibasilar consolidation. Wedge-shaped consolidation is seen throughout the right lower lobe. Mediastinum: There are numerous subcentimeter mediastinal lymph nodes. Megan: Clear. Axillae: There is no axillary lymphadenopathy. Upper abdomen: A small hiatal hernia is noted. Partially visualized upper abdominal viscera is otherwise grossly unremarkable. Skeletal structures: The skeletal structures are osteopenic. There is a severe compression deformity of T12. No lytic or blastic bony lesions are seen. A right shoulder arthroplasty is in place. Degenerative change is seen throughout the thoracic spine and in the left shoulder. IMPRESSION: 1. Extensive bilateral pulmonary embolus as above. 2. Cardiomegaly with evidence of pulmonary artery hypertension. 3. There is aneurysmal dilatation of the ascending thoracic aorta which measures up to 4.3 cm. 4. There is patchy consolidation throughout the right lower lobe with a somewhat wedge-shaped configuration. This likely represents a large pulmonary infarct. Pneumonia could also have this appearance and clinical correlation will be required. 5. There are small pleural effusions with dense dependent airspace consolidation. Differential considerations include atelectasis versus pneumonia. Again, clinical correlation will be required. 6. Trace pleural effusions. 7. Additional findings as above. Electronically signed by: Link Youngblood M.D. 06/07/2019 12:46 PM Blood Pressure Blood Pressure Findings: Normal blood pressure Blood Pressure Disposition: did not require urgent referral MDM Narrative The patient is a 88 white female w/ PMHx of Afib (not on anticoagulations), DVT prophylaxis, septic shock, CAD, GERD, HTN, NSTEMI who presents to the ED w/ CC of vomiting with an unknown onset. Differential diagnosis: Etiologies such as appendicitis, diverticulitis, PUD, biliary pathology, UTI, pancreatitis, obstruction, mesenteric ischemia, aortic pathology, infections, inflammatory bowel disease, renal colic, as well as others were entertained. Patient was seen and evaluated the bedside. The patient does present from my skilled nursing. The patient is DNR. The patient does have a history of A. fib on digoxin but is not on anticoagulant medication. The patient reportedly has had some cough. The patient does have some rhonchi bilaterally. The patient was recently admitted and discharged back in April for UTI related sepsis with positive blood cultures sensitive to cefepime and ertapenem. The patient had been discharged on 5 days of ertapenem. The patient currently does not have any acute complaints but does have some mild abdominal discomfort to palpation. The patient does have some rhonchi but denies any shortness of breath and has had a questionably productive cough. The patient did have blood work completed along with a lactic. Lactate was elevated at 3.2. She was given 500 of IV f luids to start. The patient was given additional [address] abdomen pelvis that showed concern for possible right lower lobe consolidation as well as possible pulmonary filling defect. CT angio of the chest was ordered. Patient was started on broad-spectrum antibiotics including vancomycin and cefepime patient had tested positive for MRSA and did have blood culture sensitive to cefepime in the past. CT angiography showed multiple bilateral pulmonary emboli. The patient was started on a heparin drip. I did speak with the on-call hospitalist who agreed to further evaluate treat the patient. Patient was admitted to the medicine service. Impression & Plan Multiple pulmonary emboli, Pneumonia, Abdominal pain, generalized Critical Care Time Critical Care Time: Yes Total Critical Care Time: 76 I have personally spent 76 minutes of critical care time in the direct management of this patient. This includes bedside care, interpretation of diagnostic studies, and testing, discussion with consultants, patient, and family members, and other required patient management activities. This 76 minutes is in excess of all separately billable procedures. Discharge Plan Visit Data *Final* Discharge Date/Time: 06/07/19 17:02 Chief Complaint: Vomiting ED Provider: Ty Perez Discharge Problem: Multiple pulmonary emboli, Pneumonia, Abdominal pain, generalized Patient Disposition: Admitted As Inpatient Discharge Instructions Interventions: ED Discharge Assessment Last Done: 06/07/19 17:02 Discharge Problem: Pneumonia Qualifiers: Pneumonia type: due to unspecified organism Laterality: right Lung location: lower lobe of lung Qualified Code(s): J18.1 - Lobar pneumonia, unspecified organism The scribe's documentation has been prepared under my direction and personally reviewed by me in its entirety. I confirm that the note above accurately refle cts all work, treatment, procedures, and medical decision making performed by me.
[2019-06-07] MEDS ORDERED: SODIUM CHLORIDE 0.9% 1000ML 1,000 ML IV SCH (18:15)
[2019-06-07] MEDS ORDERED: ACETAMINOPHEN 325 MG TAB PO PRN (18:15)
[2019-06-07] MEDS ORDERED: BISACODYL 10 MG SUPP PR PRN (18:15)
[2019-06-07 18:36] LABS: Basophils # (auto) 0.02 K/uL (0-0.2); Basophils % (auto) 0.1 %; Hematocrit (blood only) 35.2 % (37-47); Hemoglobin 11.5 g/dL (12.0-16.0); Immature Granulocytes # (auto) 0.15 K/uL (0.00-0.02); Immature Granulocytes % (auto) 1.1 %; Lymphocytes # (auto) 1.62 K/uL (1.2-3.4); Lymphocytes % (auto) 12.1 %; Mean Corpuscular Hgb Conc 32.7 g/dL (32-36); Mean Corpuscular Volume 94.9 fL (80-100); Mean Platelet Volume 9.4 fL (7.4-10.4); Monocytes # (auto) 1.05 K/uL (0.11-0.59); Monocytes % (auto) 7.8 %; Neutrophils % (auto) 78.9 %; Platelet Count 292 K/uL (130-400); RDW Coefficient of Variation 16.3 % (11.5-14.5); RDW Standard Deviation 56.5 fL (36.4-46.3); Red Blood Count 3.71 M/uL (4.2-5.4); White Blood Count 13.44 K/uL (4.8-10.8)
[2019-06-07] MEDS ORDERED: ALUMINUM/MAGNESIUM/SIMETH (MAALOX MAX) 30 ML UDC PO PRN (18:51)
[2019-06-07 18:56] LABS: Albumin Level 1.9 gm/dl (3.4-5.0); BUN Creatinine Ratio 22.1 (10-20); Calcium 8.6 mg/dl (8.5-10.1); Creatinine Clr Calc Pharmacy 51.9 ml/min; Est GFR (African American) 81.2; Potassium 4.6 mmol/L (3.5-5.1)
[2019-06-07 18:59] LABS: Albumin Globulin Ratio 0.4 (0.9-2); Bilirubin,Total 0.5 mg/dl (0.2-1); Globulin 5.1 gm/dl (2.5-4.0); NT Pro B Type Natriuretic Pept 4646 pg/ml (0-1800); Troponin I < 0.015 ng/ml (0-0.045)
[2019-06-07 20:46] LABS: Appearance Urine Cloudy (Clear); Bacteria Urine Automated Negative (Negative); Bilirubin Urine Negative (Negative); Blood Urine Trace (Negative); Color Urine Yellow; Epithelial Cell Urine Auto 20-30 /lpf (0-5); Glucose Urine UA Negative (Negative); Ketones Urine Negative (Negative); Leukocyte Esterase Urine 3+ (Negative); Nitrite Urine Negative (Negative); Protein Urine Negative (Negative); Specific Gravity Urine 1.039 (1.000-1.030); Urobilinogen Urine Negative (Negative); WBC Urine Automated >30 /hpf (0-5); pH Urine 7.5 (4.5-7.5)
[2019-06-07] MEDS: METOPROLOL TARTRATE 50 MG TAB PO SCH (20:51)
[2019-06-07] MEDS: DOCUSATE SODIUM 100 MG CAP PO SCH (20:52)
[2019-06-07] MEDS: DOXYCYCLINE HYCLATE 100 MG in DEXTROSE 5% 100 ML IV SCH (20:53)
[2019-06-07] MEDS: POTASSIUM CHLORIDE 10 MEQ TABCR PO SCH (20:53)
[2019-06-07] MEDS: FERROUS GLUCONATE 324 MG TAB PO SCH (20:53)
[2019-06-07 20:58] LABS: RBC Urine Automated 0-4 /hpf (0-4)
[2019-06-07] MEDS: CEFEPIME 2,000 MG in SYRINGE 0 ML IV SCH (22:15)
[2019-06-07 22:55] LABS: Partial Thromboplastin Time 54.1 Seconds (21.0-31.0)
[2019-06-08 00:59] LABS: Basophils # (auto) 0.02 K/uL (0-0.2); Basophils % (auto) 0.2 %; Eosinophils # (auto) 0.01 K/uL (0-0.5); Eosinophils % (auto) 0.1 %; Hematocrit (blood only) 31.2 % (37-47); Hemoglobin 10.2 g/dL (12.0-16.0); Immature Granulocytes # (auto) 0.12 K/uL (0.00-0.02); Immature Granulocytes % (auto) 0.9 %; Lymphocytes # (auto) 2.33 K/uL (1.2-3.4); Lymphocytes % (auto) 17.7 %; Mean Corpuscular Hgb Conc 32.7 g/dL (32-36); Mean Corpuscular Volume 95.1 fL (80-100); Mean Platelet Volume 9.5 fL (7.4-10.4); Monocytes # (auto) 1.31 K/uL (0.11-0.59); Monocytes % (auto) 9.9 %; Neutrophils # (auto) 9.39 K/uL (1.4-6.5); Neutrophils % (auto) 71.2 %; Platelet Count 281 K/uL (130-400); Red Blood Count 3.28 M/uL (4.2-5.4); White Blood Count 13.18 K/uL (4.8-10.8)
[2019-06-08 06:07] LABS: Basophils # (auto) 0.03 K/uL (0-0.2); Basophils % (auto) 0.3 %; Eosinophils # (auto) 0.02 K/uL (0-0.5); Eosinophils % (auto) 0.2 %; Hematocrit (blood only) 31.7 % (37-47); Hemoglobin 10.2 g/dL (12.0-16.0); Immature Granulocytes # (auto) 0.11 K/uL (0.00-0.02); Lymphocytes # (auto) 2.43 K/uL (1.2-3.4); Lymphocytes % (auto) 22.9 %; Mean Corpuscular Hgb Conc 32.2 g/dL (32-36); Mean Corpuscular Volume 95.5 fL (80-100); Mean Platelet Volume 9.7 fL (7.4-10.4); Monocytes # (auto) 0.89 K/uL (0.11-0.59); Monocytes % (auto) 8.4 %; Neutrophils # (auto) 7.14 K/uL (1.4-6.5); Neutrophils % (auto) 67.2 %; Platelet Count 278 K/uL (130-400); RDW Coefficient of Variation 16.2 % (11.5-14.5); Red Blood Count 3.32 M/uL (4.2-5.4); White Blood Count 10.62 K/uL (4.8-10.8)
[2019-06-08 06:26] LABS: INR 1.3 (0.9-1.1); Partial Thromboplastin Ratio 1.6; Partial Thromboplastin Time 44.4 Seconds (21.0-31.0); Prothrombin Time 12.7 Seconds (9.0-12.0)
[2019-06-08] MEDS ORDERED: HEPARIN SOD (PORCINE) 1000 UNIT/ML 10 ML VIAL IV ONE (06:39)
[2019-06-08] MEDS ORDERED: HEPARIN IV BOLUS 3,000 UNITS in SYRINGE 0 ML IV ONE (06:45)
[2019-06-08 06:49] LABS: Albumin Level 1.7 gm/dl (3.4-5.0); BUN Creatinine Ratio 27.4 (10-20); Calcium 7.8 mg/dl (8.5-10.1); Creatinine Clr Calc Pharmacy 60.2 ml/min; Est GFR (African American) 92.3; Est GFR (Non-African American) 79.7; Potassium 3.9 mmol/L (3.5-5.1)
[2019-06-08 06:55] LABS: Albumin Globulin Ratio 0.4 (0.9-2); Bilirubin,Total 0.3 mg/dl (0.2-1); Globulin 4.4 gm/dl (2.5-4.0); Total Protein 6.1 gm/dl (6.4-8.2)
[2019-06-08] MEDS ORDERED: PNEUMOCOCCAL ADMINISTRATION CHARGE ONE (07:45)
[2019-06-08] MEDS ORDERED: PNEUMOCOCCAL POLYSACCHARIDES 25 MCG/0.5 ML VIAL/SYR IM ONE (07:45)
[2019-06-08] MEDS: CITALOPRAM 20 MG TAB PO SCH (07:57)
[2019-06-08] MEDS: DOCUSATE SODIUM 100 MG CAP PO SCH ×2 (07:57→20:40)
[2019-06-08] MEDS: DONEPEZIL HCL 5 MG TAB PO SCH (07:57)
[2019-06-08] MEDS: ASPIRIN 81 MG ECTAB PO SCH (07:58)
[2019-06-08] MEDS: POLYETHYLENE (MIRALAX) 17 GM PACK PO SCH (07:58)
[2019-06-08] MEDS: POTASSIUM CHLORIDE 10 MEQ TABCR PO SCH ×2 (07:58→20:41)
[2019-06-08] MEDS: METOPROLOL TARTRATE 50 MG TAB PO SCH ×2 (07:58→20:41)
[2019-06-08] MEDS: FERROUS GLUCONATE 324 MG TAB PO SCH ×3 (07:58→20:40)
[2019-06-08] MEDS: DOCUSATE SODIUM/SENNA 50/8.6MG TAB PO SCH (07:59)
[2019-06-08] MEDS: CHOLECALCIFEROL 1,000 UNITS TAB PO SCH (07:59)
[2019-06-08] MEDS: CALCIUM CARBONATE 1250MG TAB PO SCH (07:59)
[2019-06-08] MEDS: CYANOCOBALAMIN 500 MCG TABLET (VITAMIN B-12) PO SCH (07:59)
[2019-06-08] MEDS: DOXYCYCLINE HYCLATE 100 MG in DEXTROSE 5% 100 ML IV SCH ×2 (08:01→20:49)
[2019-06-08 08:23] LABS: Estimated Average Glucose 120 mg/dl; Hemoglobin A1C 5.8 % (4.5-5.6)
[2019-06-08] MEDS: CEFEPIME 2,000 MG in SYRINGE 0 ML IV SCH ×2 (09:53→22:04)
[2019-06-08] MEDS: HEPARIN SODIUM/DEXTROSE 25,000 UNITS/500 ML BAG IV SCH (12:47)
[2019-06-08 13:14] LABS: Partial Thromboplastin Ratio 3.3
[2019-06-08 13:20] LABS: Partial Thromboplastin Time 89.9 Seconds (21.0-31.0)
--- NOTE | 2019-06-08 13:57 | Pulmonary Consultation ---
Date of Consultation June 08, 2019 Assessment & Plan (1) Multiple pulmonary emboli: The patient is currently on IV heparin. Based upon the severity of the pulmonary emboli I think she clearly needs to be treated. She is however definite fall risk by history. She does reside in [place] halfway and thus there may be less risk than otherwise but still significant. I would suggest treating her with Coumadin and then trying to keep the INR on the low side, between 2.0 and 2.4. This would be assuming the family is agreeable to this. Unfortunately no family members were available when I saw the patient. The patient herself has no understanding. I would suggest obtaining Dopplers of both lower extremities for completeness. If there were significant clots in the legs, and if the patient was really felt to be such a high risk from falls that she could not be treated, could consider placement of a filter under those circumstances. (2) Right lower lobe pulmonary infiltrate: Suggest continue the antibiotics. Her infiltrates may well be from pulmonary infarction but cannot be certain. History of Present Illness Attending Physician: Mark Anthony Pires History of Present Illness Pulmonary consultation is requested regarding acute pulmonary embolism. The patient is an 88-year-old female who was a very poor historian. She apparently resides at [facility]. She was brought to the hospital yesterday supposedly with cough. The patient tells me however that she was short of breath yesterday and she had anterior chest pain yesterday. I was not certain as to the reliability of her history because she knew she was in the hospital but she had no idea about the month of the year or what year it was. She seemed pretty clear to emphasize that she feels good today, less short of breath, and the chest pain has resolved. She was evaluated through the ER yesterday. She had recently been hospitalized with urosepsis. She had blood cultures positive for Gregory she and Morganella. She had symptoms of sepsis. Unfortunately no family members were present during this evaluation. Also her nurse was not on the nursing staff area at the time I was doing this evaluation. She did undergo a CT angio of the chest. This showed extensive bilateral pulmonary emboli but much greater on the right.There was a large there was a large thrombus noted in the distal right main pulmonary artery. There was involvement of the right upper lobe right middle lobe and right lower lobe. There was also thrombus within the left lower lobe. The thoracic aorta shows some aneurysmal dilatation measuring up to 4.3 cm. There is patchy consolidation throughout the right lower lobe. This may reflect infarct with an inability to exclude pneumonia. Very small pleural effusions are noted. The patient currently is treated with IV heparin. It should be noted the patient has a history of atrial fibrillation which is chronic. Reportedly she was not treated with anticoagulation due to recurring falls. In fact she was hospitalized in August 2018 with a right humeral fracture secondary to a fall. This information is obtained from reviewing the records. The patient's pertinent family history in addition to the A. fib includes coronary artery disease, prior stent 2013, GERD, hypertension, non-STEMI SD, urosepsis as noted, dementia, and a history of falls. Allergies Allergy/AdvReac Type Severity Reaction Status Date / Time nitrofurantoin Allergy Intermediate MACROBID-HI Verified 06/07/19 10:31 VES colchicine Allergy Unknown UNKNOWN Verified 06/07/19 10:31 zolpidem AdvReac Mild CONFUSION, Verified 06/07/19 10:31 HALLUCINATIONS Home Medications Home Medications Medication Instructions Recorded Confirmed Type alum-mag hydroxide-simeth [Mi-Acid] 30 ml PO QID PRN 07/28/18 06/07/19 History aspirin 81 mg PO DAILY 07/28/18 06/07/19 History calcium carbonate [Oysco-500] 500 mg PO QAM 07/28/18 06/07/19 History cholecalciferol (vitamin D3) 1,000 unit PO DAILY 07/28/18 06/07/19 History [Vitamin D3] cyanocobalamin (vitamin B-12) 1,000 mcg PO DAILY 07/28/18 06/07/19 History [Vitamin B-12] docusate sodium [Colace] 100 mg PO BID 07/28/18 06/07/19 History donepezil 5 mg PO DAILY 07/28/18 06/07/19 History furosemide [Lasix] 20 mg PO DAILY 07/28/18 06/07/19 History polyethylene glycol 3350 [Miralax] 17 g PO DAILY 07/28/18 06/07/19 History prednisone 10 mg PO DAILY 07/28/18 06/07/19 History sennosides-docusate sodium 1 tab PO DAILY 07/28/18 06/07/19 History [Senna-S] acetaminophen 650 mg NC Q6H PRN 05/16/19 06/07/19 History bisacodyl [Dulcolax (bisacodyl)] 10 mg NC DAILY PRN 05/16/19 06/07/19 History ferrous gluconate 324 mg PO TID 05/16/19 06/07/19 History citalopram 20 mg PO DAILY 06/07/19 06/07/19 History digoxin [Digox] 125 mcg PO DAILY 06/07/19 06/07/19 History fluconazole 100 mg PO DAILY 06/07/19 06/07/19 History metoprolol tartrate 50 mg PO BID 06/07/19 06/07/19 History potassium chloride 10 meq PO BID 06/07/19 06/07/19 History ranitidine HCl [Zantac] 150 mg PO DAILY 06/07/19 06/07/19 History Patient History Medical History CAD (coronary artery disease) (Chronic) s/p stent to LAD in 2012 In 2012, the patient was seen as an outpatient by Dr. Rodriguez, with compla int of symptoms consistent with unstable angina, she was found to have significant lateral ST segment depression on EKG and was therefore hospitalized and underwent cardiac catheterization on 07/03/13 with findings of an ulcerated culprit plaque in the first diagonal branch of the LAD with patent coronaries otherwise. Atrial fibrillation (Chronic) PAF. hospitalized once for A fib with RVR. On COUMADIN Dementia (Chronic) Polymyalgia rheumatica (Chronic) On prednisone 10mg PO daily. GERD (gastroesophageal reflux disease) (Chronic) HTN (hypertension) (Chronic) Fall (Acute) Patient reports fall was preceded by dizziness. Denies LOC. This happened last month resulting in an ER visit with large knee effusion. Basal cell carcinoma of face (Resolved Unknown) NSTEMI (non-ST elevated myocardial infarction) (Resolved) 2012 Alzheimer disease (Chronic) NSTEMI (non-ST elevated myocardial infarction) (Resolved) Anemia Surgical History History of total hip arthroplasty History of colonoscopy History of spinal fusion Family History Other Family history of high blood pressure Social History Preferred Language: Guamanian Communication Ability: alzheimers Contour Grinder Required: No Beliefs That Will Affect Care: None marital status: / Current Living Situation: Custodial Other Information That Helps Us Care for You: Yes Feels Safe at Home: Yes Safety Concerns: Feels Safe At This Time Smoking Status: Never smoker Second Hand Exposure: No ; Hx Alcohol Use: No Hx Substance Use: No Review of Systems Review of Systems: The patient denies essentially everything. I believe she is just an unreliable historian. Physical Exam Physical Exam: The patient is a pleasant 88-year-old female who was cooperative and alert. She knew she was in the hospital. However she thought it was September rather than May. She also could not tell me the year. Weight is 78.4 kg. Eye exam suggests implants bilaterally. Nares clear. Mouth exam shows dentures on top and an absence of teeth on the bottom. Palpation of the neck reveals no lymph nodes or masses. Cardiac rate 78/min. The rhythm is irregularly irregular. Blood pressure 95/62. Her blood pressure has been low intermittently during this stay. Auscultation of the lung gutierrez revealed them to be clear with just a few rales in the right lower lung field. Respiratory rate is 18 breaths/min. Temperature 36.5. There has been no fevers. Abdomen was soft. Bowel sounds present. She has multiple scars in the abdomen. She was uncertain what the surgeries were. I did ask her if she had had a hysterectomy and she said yes, I asked her if she had appendectomy and she said yes, I asked her if she had cholecystectomy and she said yes. I am not certain however that those are accurate. Extremities reveals that both knees appear to have significant DJD. The legs are large but there is no pitting edema. There was no tenderness to palpation. Results & Data Vital Signs (Past 12 Hours) Vital Signs Temp Pulse Resp BP Pulse Ox 06/08/19 10:42 36.5 C 78 18 95/62 L 97 06/08/19 07:00 36.4 C L 92 H 18 109/68 98 06/08/19 03:09 36.4 C L 98 H 22 111/67 99 Laboratory Results White count is 10.62. Hemoglobin 10.2. Platelets 278,000. Electrolytes show sodium 135 potassium 3.9 chloride 104 bicarb 22. BUN 18 with creatinine 0.64. proBNP was elevated at 4646 as of 06/07/2019. Total protein is 6.1 with albumin 1.7. Liver functions are normal. PTT at 12:18 PM today was elevated at 89.9. INR today was 1.3. Urinalysis from yesterday shows +3 leukocyte esterase, greater than 30 WBCs, and budding hyphae are noted. Diagnostic Findings As noted previously CTA of the chest shows extensive bilateral pulmonary emboli, pulmonary hypertension, aneurysmal dilatation of the thoracic aorta. There is extensive infiltrate which is somewhat patchy in the area of the right lower lobe. There is a wedged shaped configuration likely representing infarct with inability to exclude pneumonia. PG Care Time/CCT Total # of Minutes Spent Total Time Spent with Patient: Total time spent is greater than 50% in coordination of care (as documented) at patient's floor/unit and/or counseling patient:
[2019-06-08] MEDS ORDERED: WARFARIN SOD 5 MG TAB PO ONE (16:04)
--- NOTE | 2019-06-08 16:38 | Ultrasound Report ---
US venous doppler LE CLINICAL HISTORY: 88 years-old Female presenting with Pulmonary embolism, rule out DVT. TECHNIQUE: Real-time grayscale and color and spectral Doppler ultrasound imaging of the veins of the bilateral lower extremities was performed. Compression and augmentation were also utilized. COMPARISON: None. FINDINGS: RIGHT: Common femoral vein: Patent. Greater saphenous vein (superficial): Patent. Deep femoral vein: Not well visualized. Femoral vein: Occlusive thrombus throughout the vein from proximal to distal. Popliteal vein: Occlusive or nearly occlusive thrombus throughout the vein from proximal to distal. Calf veins: Peroneal vein and posterior tibial vein not well seen due to subcutaneous edema. Peroneal vein does contain occlusive thrombus. LEFT: Common femoral vein: Patent. Greater saphenous vein (superficial): Patent. Deep femoral vein: Nonocclusive thrombus is evident. Femoral vein: Nonocclusive thrombus throughout the vein from proximal to distal. Popliteal vein: Nonocclusive thrombus throughout the vein from proximal to distal. Calf veins: Occlusive thrombus in the posterior tibial and peroneal veins. Anterior tibial vein not w ell seen. Other: None. IMPRESSION: Extensive largely occlusive bilateral lower extremity deep venous thrombosis in the femoral, poplitea l, and calf veins. The report will be called/faxed according to standard departmental protocol for a critical finding. Electronically signed by: Ventura Sherwood M.D. 06/08/2019 4:37 PM
[2019-06-08] MEDS: DIGOXIN 0.125 MG TAB PO SCH (16:52)
[2019-06-08 20:12] LABS: Partial Thromboplastin Ratio 2.3
[2019-06-08 21:04] LABS: Partial Thromboplastin Time 62.4 Seconds (21.0-31.0)
--- NOTE | 2019-06-08 22:38 | Hospitalist Progress Note ---
Date of Service June 08, 2019 Assessment & Plan (1) Multiple pulmonary emboli: Admit to inpatient on telemetry Vital signs every 4 hours CBC CMP daily Heparin drip continue for multiple pulmonary embolism Family is agreeable to coumadin. At this point doubt, infection, infiltrate likely from pulmoanry infarct contiue antibiotics DuoNebs every 4 hours as needed Trend down lactic acid Pulmonary consult for possible large patchy consolidation throughout the right lower lobe with somewhat wedge-shaped configuration which may represent large pulmonary infarct. Spoke to Dr. Short and he recommended to continue heparin drip and IV fluids for rehydration. Per family request patient is DNI DNR. (2) Pneumonia: Pending blood cultures, sputum culture pending Trend down lactic acid Continue cefepime, started doxycycline for MRSA coverage. Duo nebs every 4 hours as needed Solu-Medrol 30 mg IV every 12 (3) Lactic acidosis: Repeat lactic acid Continue IV fluids (4) Decubital ulcer: Wound care (5) Dementia: Appears to be vascular in origin continue vitamin B12, donepezil 5 mg p.o. daily, (6) Constipation, chronic: Continue senna S1 tablet p.o. daily, Colace 100 mg p.o. twice daily (7) CAD (coronary artery disease): Coronary artery disease, hypertension , congestive heart failure Hold furosemide while patient is an acute pulmonary embolism Resuscitate fluid for now Continue metoprolol tartrate 50 mg p.o. twice daily, continue potassium chloride 10 mg p.o. twice daily, continue digoxin 125 mg p.o. daily (8) GERD (gastroesophageal reflux disease): Continue ranitidine 150 mg p.o. daily (9) DVT (deep venous thrombosis): Patient has acute dvt of bilateral lower extremities. Likely secondary to sedentary lifestyle. Family ok with starting coumadin. will check INR daily. Given poor quality of life, may consider palliative care consult for goals of care. (10) Depression: Continue citalopram 20 mg p.o. daily Spent 35 minutes in management with patient. Subjective Patient is a poor historian. Patient denies any new symptoms. Daughter is at bedside. Daughter states patient has not been very active lately and mainly spends her day in bed. She was a fall risk before but given her limited daily acitivites, daughter is ok with starting warfarin Review of Systems Review of Systems: Unobtainable due to mental health condition Physical Exam Physical Exam: Constitutional: WD/WN, vitals as above well developed and + frail appearing Eyes: PERRL, conjunctivae normal, anicteric sclerae ENMT: external ear and nose normal, oropharynx normal Neck: trachea midline, no thyromegaly Respiratory: + dullness to percussion Auscultation: + crackles Patient is oxygenating well on room air Cardiovascular: Heart Sounds: normal S1, normal S2 and + murmur Palpation: + palpable S3 Vessels: + JVD Chest (Breasts): normal inspection/palpation of breasts Gastrointestinal (Abdomen): normal bowel sounds, soft, nontender, no hepatosplenomegaly Musculoskeletal: no cyanosis or clubbing, extremities motor strength 5/5 Skin: Large decubitus located at the back with macerated skin appears to be between second and third stage. Neurologic: patellar DTR's 2+ bilat, sensation intact Psychiatric: A+Ox3, euthymic affect Genitourinary: Incontinent for both stool and urine Lymphatic: no cervical or axillary lymphadenopathy Results & Data Vital Signs (Past 12 Hours) Vital Signs Temp Pulse Pulse Pulse Resp BP Pulse Ox 06/08/19 20:42 95 H 108/62 06/08/19 19:46 36.5 C 93 H 18 114/76 100 06/08/19 16:52 104 H 06/08/19 16:00 77 06/08/19 15:00 36.5 C 90 20 122/79 98 06/08/19 10:42 36.5 C 78 18 95/62 L 97 PG Care Time/CCT Total # of Minutes Spent Total Time Spent with Patient: Total time spent is greater than 50% in coordination of care (as documented) at patient's floor/unit and/or counseling patient: (1) Pneumonia Laterality: right Lung location: lower lobe of lung Pneumonia type: due to unspecified organism Qualified Code(s): J18.1 - Lobar pneumonia, unspecified organism
[2019-06-09 05:20] LABS: Basophils # (auto) 0.02 K/uL (0-0.2); Basophils % (auto) 0.2 %; Eosinophils # (auto) 0.03 K/uL (0-0.5); Eosinophils % (auto) 0.4 %; Hematocrit (blood only) 33.5 % (37-47); Hemoglobin 10.6 g/dL (12.0-16.0); Immature Granulocytes # (auto) 0.11 K/uL (0.00-0.02); Immature Granulocytes % (auto) 1.3 %; Lymphocytes # (auto) 2.11 K/uL (1.2-3.4); Lymphocytes % (auto) 25.7 %; Mean Corpuscular Hgb Conc 31.6 g/dL (32-36); Mean Corpuscular Volume 94.4 fL (80-100); Mean Platelet Volume 9.3 fL (7.4-10.4); Monocytes # (auto) 0.75 K/uL (0.11-0.59); Monocytes % (auto) 9.1 %; Neutrophils % (auto) 63.3 %; Platelet Count 324 K/uL (130-400); RDW Coefficient of Variation 15.9 % (11.5-14.5); Red Blood Count 3.55 M/uL (4.2-5.4); White Blood Count 8.22 K/uL (4.8-10.8)
[2019-06-09 05:42] LABS: INR 1.2 (0.9-1.1); Partial Thromboplastin Ratio 2.5; Prothrombin Time 12.3 Seconds (9.0-12.0)
[2019-06-09 06:36] LABS: Partial Thromboplastin Time 66.9 Seconds (21.0-31.0)
[2019-06-09] MEDS: CYANOCOBALAMIN 500 MCG TABLET (VITAMIN B-12) PO SCH (07:58)
[2019-06-09] MEDS: CITALOPRAM 20 MG TAB PO SCH (07:58)
[2019-06-09] MEDS: DOCUSATE SODIUM 100 MG CAP PO SCH ×2 (07:59→21:34)
[2019-06-09] MEDS: ASPIRIN 81 MG ECTAB PO SCH (07:59)
[2019-06-09] MEDS: CHOLECALCIFEROL 1,000 UNITS TAB PO SCH (07:59)
[2019-06-09] MEDS: CALCIUM CARBONATE 1250MG TAB PO SCH (07:59)
[2019-06-09] MEDS: DONEPEZIL HCL 5 MG TAB PO SCH (07:59)
[2019-06-09] MEDS: DOCUSATE SODIUM/SENNA 50/8.6MG TAB PO SCH (07:59)
[2019-06-09] MEDS: METOPROLOL TARTRATE 50 MG TAB PO SCH ×2 (07:59→21:33)
[2019-06-09] MEDS: POLYETHYLENE (MIRALAX) 17 GM PACK PO SCH (08:00)
[2019-06-09] MEDS: POTASSIUM CHLORIDE 10 MEQ TABCR PO SCH ×2 (08:00→21:33)
[2019-06-09] MEDS: FERROUS GLUCONATE 324 MG TAB PO SCH ×3 (08:00→21:34)
--- NOTE | 2019-06-09 08:35 | Pulmonology Progress Note ---
Date of Service June 09, 2019 Assessment & Plan (1) Multiple pulmonary emboli: The patient is currently on IV heparin. Based upon the severity of the pulmonary emboli I think she clearly needs to be treated. She is however definite fall risk by history. She does reside in a [place] and thus there may be less risk than otherwise but still significant. I would suggest treating her with Coumadin and then trying to keep the INR on the low side, between 2.0 and 2.4. This would be assuming the family is agreeable to this. Unfortunately Once again no family members were available when I saw the patient. The patient herself has no understanding. The patient has been a high fall risk in the past. She is in a [place] [facility] [place] and I am not certain how well they would be able to keep her from ambulating at least on a temporary basis. She does have very extensive clots. The a lternatives would be to put an IVC filter if it was ultimately determined her fall risk was too great. Her family certainly would be in a better position to understand what her habits are and how she does.This was discussed yesterday with Dr. Pires. Her atrial fib rates are higher today. There is no obvious reason for this. There could be some concern however if she might be throwing further clots.Clinical correlation is required. (2) Right lower lobe pulmonary infiltrate: Suggest continue the antibiotics. Her infiltrates may well be from pulm onary infarction but cannot be certain. Subjective The patient denies complaints.She specifically denies chest pain, shortness of breath, cough, or any other problem.She seems to be not eating very much although she insists that she keeps picking at her foods.Her heart rates have been higher this morning even though she denies complaints. Physical Exam Physical Exam: The patient is a 88-year-old female who was cooperative alert and oriented. She was in no distress at rest. She is pleasantly confused.She does realize she is in the hospital. Pupils were reactive. Implants were noted. Arcus senilis noted. Nares clear. Mouth exam showed dentures on top and in absence of teeth on the bottom. Palpation of the neck reveals no lymph nodes. Cardiac rate is varying between 96 and 120/min. The rhythm is irregularly irregular.Blood pressure 122/76. Auscultation of the lung gutierrez revealed them to be clear. The right lung had diminished breath sounds compared with the left. Respiratory rate is recorded earlier today is 25 breaths/min but it was 18 breaths/min when I saw the patient. Saturation is 97% on 2 L nasal cannula. Extremities showed no cyanosis clubbing or edema. Degenerative joint disease of the knees was noted. Results & Data Vital Signs (Past 12 Hours) Vital Signs Temp Pulse Resp BP Pulse Ox 06/09/19 07:36 36.9 C 108 H 25 H 122/76 97 06/09/19 03:40 37.4 C 106 H 23 116/66 97 06/08/19 23:00 37.0 C 81 27 H 118/67 99 06/08/19 20:42 95 H 108/62 Laboratory Results White blood cell count today is 8.22. Hemoglobin 10.6. PlateletsAre 324,000. INR this morning 1.2. PTT is 66.9. Diagnostic Findings Venous Doppler on the right lower extremity showed occlusive thrombus throughout the femoral vein, popliteal vein,And there was occlusive thrombus in the peroneal vein. Left venous Doppler shows thrombus throughout the femoral vein, popliteal vein,And in the posterior tibial and peroneal veins.Loss overall there is extensively large occlusive bilateral remedy deep vein thrombosis. Echocardiogram done 06/08/2019 showed mild concentric LVH, normal left ventricular systolic function, moderate dilatation of the left atrium and right atrium, severe mitral annular calcification, moderate tricuspid regurgitation, elevation of the right ventricular systolic pressure at 50 to 60 mm, and mildly dilated inferior vena cava. Comparison with 05/17/2019 shows no significant change. PG Care Time/CCT Total # of Minutes Spent Total Time Spent with Patient: Total time spent is greater than 50% in coord ination of care (as documented) at patient's floor/unit and/or counseling patient:
[2019-06-09] MEDS: DOXYCYCLINE HYCLATE 100 MG CAP PO SCH ×2 (10:58→19:41)
[2019-06-09] MEDS: HEPARIN SODIUM/DEXTROSE 25,000 UNITS/500 ML BAG IV SCH (10:58)
[2019-06-09] MEDS: CEFEPIME 2,000 MG in SYRINGE 0 ML IV SCH ×2 (11:05→21:32)
[2019-06-09 13:40] LABS: Partial Thromboplastin Ratio 2.3
[2019-06-09 13:51] LABS: Partial Thromboplastin Time 61.5 Seconds (21.0-31.0)
[2019-06-09] MEDS: DIGOXIN 0.125 MG TAB PO SCH (15:57)
--- NOTE | 2019-06-09 22:28 | Hospitalist Progress Note ---
Date of Service June 09, 2019 Assessment & Plan (1) Multiple pulmonary emboli: Admit to inpatient on telemetry Vital signs every 4 hours CBC CMP daily Heparin drip continue for multiple pulmonary embolism Family is agreeable to coumadin. At this point doubt, infection, infiltrate likely from pulmoanry infarct continue antibiotics DuoNebs every 4 hours as needed Trend down lactic acid will continue to monitor INR. once INR is therapeutic, will bridge with heparin, and then will discharge patient. Appreciate input by pulmonary. Per family request patient is DNI DNR. (2) Pneumonia: Pending blood cultures, sputum culture pending Trend down lactic acid Continue cefepime, started doxycycline for MRSA coverage. Duo nebs every 4 hours as needed Solu-Medrol 30 mg IV every 12 (3) Lactic acidosis: Repeat lactic acid Continue IV fluids (4) Decubital ulcer: Wound care (5) Dementia: Appears to be vascular in origin continue vitamin B12, donepezil 5 mg p.o. daily, (6) Constipation, chronic: Continue senna S1 tablet p.o. daily, Colace 100 mg p.o. twice daily (7) CAD (coronary artery disease): Coronary artery disease, hypertension , congestive heart failure Hold furosemide while patient is an acute pulmonary embolism Resuscitate fluid for now Continue metoprolol tartrate 50 mg p.o. twice daily, continue potassium chloride 10 mg p.o. twice daily, continue digoxin 125 mg p.o. daily (8) GERD (gastroesophageal reflux disease): Continue ranitidine 150 mg p.o. daily (9) DVT (deep venous thrombosis): Patient has acute dvt of bilateral lower extremities. Likely secondary to sedentary lifestyle. Family ok with starting coumadin. will check INR daily. Given poor quality of life, may consider palliative care consult for goals of care. (10) Depression: Continue citalopram 20 mg p.o. daily Subjective Patient is a poor historian. She has no complaints. She denies ever having feeling of heart palpitations, chest pain, nausea, vomiting. Review of Systems Review of Systems: All systems reviewed & are unremarkable except as noted in HPI & below Physical Exam Physical Exam: Constitutional: WD/WN, vitals as above well developed and + frail appearing Eyes: PERRL, conjunctivae normal, anicteric sclerae ENMT: external ear and nose normal, oropharynx normal Neck: trachea midline, no thyromegaly Respiratory: patient appears tachypnic, crackles bilaterally. Cardiovascular: Heart Sounds: normal S1, normal S2 and + murmur Palpation: + palpable S3 Vessels: + JVD Gastrointestinal (Abdomen): normal bowel sounds, soft, nontender, no hepatosplenomegaly Musculoskeletal: no cyanosis or clubbing, extremities motor strength 5/5 Skin: Large decubitus located at the back with macerated skin appears to be between second and third stage. Neurologic: patellar DTR's 2+ bilat, sensation intact Psychiatric: euthymic affect Genitourinary: Incontinent for both stool and urine Lymphatic: no cervical or axillary lymphadenopathy Results & Data Vital Signs (Past 12 Hours) Vital Signs Temp Pulse Pulse Resp BP Pulse Ox Pulse Ox 06/09/19 19:16 37.0 C 104 H 20 117/83 100 06/09/19 18:00 94 06/09/19 15:57 98 H 06/09/19 15:46 36.9 C 90 26 H 122/63 96 06/09/19 11:02 37.2 C 91 H 24 106/72 99 PG Care Time/CCT Total # of Minutes Spent Total Time Spent with Patient: Total time spent is greater than 50% in coordination of care (as documented) at patient's floor/unit and/or counseling patient: (1) Pneumonia Laterality: right Lung location: lower lobe of lung Pneumonia type: due to unspecified organism Qualified Code(s): J18.1 - Lobar pneumonia, unspecified organism
[2019-06-10 05:59] LABS: Basophils # (auto) 0.04 K/uL (0-0.2); Basophils % (auto) 0.5 %; Eosinophils # (auto) 0.04 K/uL (0-0.5); Eosinophils % (auto) 0.5 %; Hematocrit (blood only) 32.8 % (37-47); Hemoglobin 10.6 g/dL (12.0-16.0); Immature Granulocytes # (auto) 0.15 K/uL (0.00-0.02); Immature Granulocytes % (auto) 1.8 %; Lymphocytes # (auto) 2.19 K/uL (1.2-3.4); Lymphocytes % (auto) 25.9 %; Mean Corpuscular Hgb Conc 32.3 g/dL (32-36); Mean Corpuscular Volume 93.7 fL (80-100); Monocytes # (auto) 0.99 K/uL (0.11-0.59); Monocytes % (auto) 11.7 %; Neutrophils # (auto) 5.05 K/uL (1.4-6.5); Neutrophils % (auto) 59.6 %; Platelet Count 317 K/uL (130-400); RDW Standard Deviation 55.4 fL (36.4-46.3); White Blood Count 8.46 K/uL (4.8-10.8)
[2019-06-10 06:38] LABS: INR 1.3 (0.9-1.1); Partial Thromboplastin Ratio 2.1; Prothrombin Time 13.5 Seconds (9.0-12.0)
[2019-06-10 06:42] LABS: Partial Thromboplastin Time 56.7 Seconds (21.0-31.0)
[2019-06-10] MEDS ORDERED: WARFARIN SOD 5 MG TAB PO ONE (08:20)
[2019-06-10] MEDS: CALCIUM CARBONATE 1250MG TAB PO SCH (09:19)
[2019-06-10] MEDS: CHOLECALCIFEROL 1,000 UNITS TAB PO SCH (09:19)
[2019-06-10] MEDS: CITALOPRAM 20 MG TAB PO SCH (09:20)
[2019-06-10] MEDS: FERROUS GLUCONATE 324 MG TAB PO SCH ×3 (09:20→19:44)
[2019-06-10] MEDS: CYANOCOBALAMIN 500 MCG TABLET (VITAMIN B-12) PO SCH (09:20)
[2019-06-10] MEDS: POTASSIUM CHLORIDE 10 MEQ TABCR PO SCH ×2 (09:21→19:44)
[2019-06-10] MEDS: METOPROLOL TARTRATE 50 MG TAB PO SCH ×2 (09:21→19:45)
[2019-06-10] MEDS: DOXYCYCLINE HYCLATE 100 MG CAP PO SCH ×2 (09:21→19:44)
[2019-06-10] MEDS: DOCUSATE SODIUM 100 MG CAP PO SCH ×2 (09:24→19:44)
[2019-06-10] MEDS: DONEPEZIL HCL 5 MG TAB PO SCH (09:24)
[2019-06-10] MEDS: ASPIRIN 81 MG ECTAB PO SCH (09:24)
[2019-06-10] MEDS: POLYETHYLENE (MIRALAX) 17 GM PACK PO SCH (09:25)
[2019-06-10] MEDS: DOCUSATE SODIUM/SENNA 50/8.6MG TAB PO SCH (10:07)
[2019-06-10] MEDS: CEFEPIME 2,000 MG in SYRINGE 0 ML IV SCH ×2 (10:08→21:27)
[2019-06-10] MEDS: HEPARIN SODIUM/DEXTROSE 25,000 UNITS/500 ML BAG IV SCH (10:10)
--- NOTE | 2019-06-10 11:29 | XRay Report ---
XR chest 1V portable CLINICAL HISTORY: pulmonary infarct dyspnea COMPARISON STUDY: 06/07/2019 FINDINGS: Moderate stable cardiomegaly. Unchanged increased density left lung base. Lungs otherwise a ppear clear. Tortuosity and ectasia thoracic aorta noted. IMPRESSION: 1. Unchanging consolidative process/atelectasis left base. 2. Moderate stable cardiomegaly. The above report was generated using voice recognition software. It may contain grammatical, syntax or spelling errors. Electronically signed by: Man Silva M.D. 06/10/2019 11:27 AM
--- NOTE | 2019-06-10 14:33 | Pulmonology Progress Note ---
Date of Service June 10, 2019 Assessment & Plan (1) Multiple pulmonary emboli: Continue the IV heparin. Continue Coumadin to increase INR between 2 and 2.5. Continue antibiotics for now in the event there is coexistent pneumonia. Will defer the increased heart rate to hospitalist team. Dr. Pires indicated he had spoken with the family. They explained that the patient is essentially nonambulatory. Thus her risk of falls would be much less than prior. The patient's family reportedly was agreeable to anticoagulation. Based upon the severity of the clots I suspect this would be long-term as long as she does not have side effects or complications. (2) Bilateral pleural effusion: These are small and as of now require no therapy. They can simply be followed radiographically. Subjective The patient denies sob, chest pain, cough, or other complaints. She said she feels very well. She is having episodes of rapid atrial fib as reported by RN. She states she is enjoying the food. I am not convinced she is a good historian. She has had intermittent episodes of increased respiratory rates without without obvious symptoms. Physical Exam Physical Exam: The patient is a pleasantly confused 88-year-old female who was cooperative and alert. She was not oriented. She did realize she was in the hospital. ENT exam unchanged from prior. Current cardiac rate 103/min. The rhythm is irregularly irregular. Blood pressure 99/56. Auscultation revealed mild rales posteriorly at the bases. No wheezes heard. Respiratory rate at present 24/min but not labored. She does not appear to be in any distress at all. Saturation 97% on 2 L nasal cannula. Extremities showed no cyanosis clubbing or edema. Results & Data Vital Signs (Past 12 Hours) Vital Signs Temp Pulse Resp BP Pulse Ox 06/10/19 11:39 36.4 C L 94 H 17 99/56 L 97 06/10/19 07:05 36.6 C 107 H 22 99/56 L 98 06/10/19 03:40 36.6 C 110 H 29 H 104/87 97 Laboratory Results White count today 8.46. Hemoglobin 10.6. Platelets 317,000. INR today 1.3 PTT 56.7. Diagnostic Findings Chest x-ray today than on the portable view shows increased opacification at the left lung base which is unchanged compared with 06/07/2019. This may reflect a combination of small effusion and atelectasis. PG Care Time/CCT Total # of Minutes Spent Total Time Spent with Patient: Total time spent is greater than 50% in coordination of care (as documented) at patient's floor/unit and/or counseling patient:
[2019-06-10] MEDS: DIGOXIN 0.125 MG TAB PO SCH (16:44)
--- NOTE | 2019-06-10 22:41 | Hospitalist Progress Note ---
Date of Service June 10, 2019 Assessment & Plan (1) Multiple pulmonary emboli: Admit to inpatient on telemetry Vital signs every 4 hours CBC CMP daily Heparin drip continue for multiple pulmonary embolism Family is agreeable to coumadin. Will monitor INR. Dose of coumadin was missed on 06/09. Received 06/08, 06/10 5 mg dose. Goal is to keep INR at 2.0-2.4 At this point doubt, infection, infiltrate likely from pulmonary infarct continue antibiotics DuoNebs every 4 hours as needed Trend down lactic acid will continue to monitor INR. once INR is therapeutic, will bridge with heparin, and then will discharge patient. Appreciate input by pulmonary. Per family request patient is DNI DNR. (2) Pneumonia: Pending blood cultures, sputum culture pending Trend down lactic acid Continue cefepime, started doxycycline for MRSA coverage. Procalcitionin is negative. Will likely stop antibiotics tomorrow if cultures remain negative. Duo nebs every 4 hours as needed Solu-Medrol 30 mg IV every 12 (3) Lactic acidosis: Repeat lactic acid Continue IV fluids (4) Decubital ulcer: Wound care (5) Dementia: Appears to be vascular in origin continue vitamin B12, donepezil 5 mg p.o. daily, (6) Constipation, chronic: Continue senna S1 tablet p.o. daily, Colace 100 mg p.o. twice daily (7) CAD (coronary artery disease): Coronary artery disease, hypertension , congestive heart failure Hold furosemide while patient is an acute pulmonary embolism Resuscitate fluid for now Continue metoprolol tartrate 50 mg p.o. twice daily, continue potassium chloride 10 mg p.o. twice daily, continue digoxin 125 mg p.o. daily (8) GERD (gastroesophageal reflux disease): Continue ranitidine 150 mg p.o. daily (9) DVT (deep venous thrombosis): Patient has acute dvt of bilateral lower extremities. Likely secondary to sedentary lifestyle. Family ok with starting coumadin. will check INR daily. Given poor quality of life, may consider palliative care consult for goals of care. (10) Depression: Continue citalopram 20 mg p.o. daily Subjective 88 yo female does not provide significant history today. She does know that she is in the hospital. But does not know why. She denies any new complaints. Daughter is not in room at time of exam. Review of Systems Review of Systems: All systems reviewed & are unremarkable except as noted in HPI & below Physical Exam Physical Exam: Constitutional: WD/WN, vitals as above well developed and + frail appearing Eyes: PERRL, conjunctivae normal, anicteric sclerae ENMT: external ear and nose normal, oropharynx normal Neck: trachea midline, no thyromegaly Respiratory: patient appears tachypnic, crackles bilaterally. No wheezing heard Cardiovascular: Heart Sounds: normal S1, normal S2 and + murmur Palpation: + palpable S3 Vessels: + JVD Gastrointestinal (Abdomen): normal bowel sounds, soft, nontender, no hepatosplenomegaly Musculoskeletal: no cyanosis or clubbing, extremities motor strength 5/5 Skin: Large decubitus located at the back with macerated skin appears to be between second and third stage. Neurologic: patellar DTR's 2+ bilat, sensation intact Psychiatric: euthymic affect Lymphatic: no cervical or axillary lymphadenopathy Results & Data Vital Signs (Past 12 Hours) Vital Signs Temp Pulse Pulse Resp BP Pulse Ox 06/10/19 18:32 36.6 C 113 H 18 110/83 95 06/10/19 16:44 105 H 06/10/19 15:12 36.5 C 94 H 22 127/84 98 06/10/19 11:39 36.4 C L 94 H 17 99/56 L 97 PG Care Time/CCT Total # of Minutes Spent Total Time Spent with Patient: Total time spent is greater than 50% in coordination of care (as documented) at patient's floor/unit and/or counseling patient: (1) Pneumonia Laterality: right Lung location: lower lobe of lung Pneumonia type: due to unspecified organism Qualified Code(s): J18.1 - Lobar pneumonia, unspecified organism
[2019-06-11 06:19] LABS: INR 2.1 (0.9-1.1)
[2019-06-11 06:43] LABS: Creatinine Clr Calc Pharmacy 91.7 ml/min; Est GFR (African American) 102.9; Est GFR (Non-African American) 88.8
[2019-06-11 07:01] LABS: Partial Thromboplastin Ratio 3.3
[2019-06-11 07:06] LABS: Partial Thromboplastin Time 88.3 Seconds (21.0-31.0)
[2019-06-11] MEDS: HEPARIN SODIUM/DEXTROSE 25,000 UNITS/500 ML BAG IV SCH (08:51)
[2019-06-11] MEDS: METOPROLOL TARTRATE 50 MG TAB PO SCH ×2 (08:52→21:03)
[2019-06-11] MEDS: DOCUSATE SODIUM/SENNA 50/8.6MG TAB PO SCH (08:52)
[2019-06-11] MEDS: DONEPEZIL HCL 5 MG TAB PO SCH (08:52)
[2019-06-11] MEDS: ASPIRIN 81 MG ECTAB PO SCH (08:52)
[2019-06-11] MEDS: FERROUS GLUCONATE 324 MG TAB PO SCH ×3 (08:53→21:01)
[2019-06-11] MEDS: CYANOCOBALAMIN 500 MCG TABLET (VITAMIN B-12) PO SCH (08:53)
[2019-06-11] MEDS: CALCIUM CARBONATE 1250MG TAB PO SCH (08:53)
[2019-06-11] MEDS: POTASSIUM CHLORIDE 10 MEQ TABCR PO SCH ×2 (08:53→21:02)
[2019-06-11] MEDS: CITALOPRAM 20 MG TAB PO SCH (08:53)
[2019-06-11] MEDS: DOCUSATE SODIUM 100 MG CAP PO SCH ×2 (08:53→21:02)
[2019-06-11] MEDS: DOXYCYCLINE HYCLATE 100 MG CAP PO SCH ×2 (08:53→19:54)
[2019-06-11] MEDS: CHOLECALCIFEROL 1,000 UNITS TAB PO SCH (08:53)
[2019-06-11] MEDS: POLYETHYLENE (MIRALAX) 17 GM PACK PO SCH (08:54)
[2019-06-11] MEDS: CEFEPIME 2,000 MG in SYRINGE 0 ML IV SCH ×2 (08:58→21:27)
--- NOTE | 2019-06-11 14:44 | Pulmonology Progress Note ---
Date of Service June 11, 2019 Assessment & Plan (1) Multiple pulmonary emboli: Continue the IV heparin. Coumadin today was 2.1Ideally should crossover with the heparin for 1 additional day.She does seem to be sensitive to the Coumadin based upon the amount of total dose she has had.This may be in part because of the antibiotics. Continue antibiotics for now in the event there is coexistent pneumonia. Will check portable x-ray again in the morning to evaluate the previously seen opacity at the left base. Dr. Pires indicated he had spoken with the family. They explained that the patient is essentially nonambulatory. Thus her risk of falls would be much less than prior. The patient's family reportedly was agreeable to anticoagulation. Based upon the severity of the clots I suspect this would be long-term as long as she does not have side effects or complications. (2) Bilateral pleural effusion: These are small and as of now require no therapy. They can simply be followed radiographically. Subjective The patient continues to deny complaints.She specifically denies shortness of breath, cough, sputum production, or chest pain.Nursing reports no significant problems except for intermittent episodes of elevated heart rates. Physical Exam Physical Exam: The patient remains pleasantly confused. She was cooperative alert and oriented. She was in no distress. Cardiac rate [id number]/min. The rhythm is irregularly irregular. Blood pressure 119/66. Lung gutierrez were clear bilaterally. Respiratory rate 18. Saturation 94% on room air at rest. Temperature 37.1. Extremities showed no cyanosis clubbing or edema.Hands are cool to touch. Results & Data Vital Signs (Past 12 Hours) Vital Signs Temp Pulse Resp BP Pulse Ox 06/11/19 11:58 37.1 C 97 H 18 119/66 94 06/11/19 07:09 36.6 C 102 H 21 133/84 94 06/11/19 04:11 36.8 C 118 H 28 H 131/81 95 Laboratory Results INR today is increased to 2.1.PTT this morning elevated at 88.3. PG Care Time/CCT Total # of Minutes Spent Total Time Spent with Patient: Total time spent is greater than 50% in coordination of care (as documented) at patient's floor/unit and/or counseling patient:
[2019-06-11 15:01] LABS: Partial Thromboplastin Ratio 2.9
[2019-06-11 15:14] LABS: Partial Thromboplastin Time 79.2 Seconds (21.0-31.0)
[2019-06-11] MEDS ORDERED: WARFARIN SOD 5 MG TAB PO SCH (16:00)
[2019-06-11] MEDS: DIGOXIN 0.125 MG TAB PO SCH (16:14)
[2019-06-11] MEDS ORDERED: ONDANSETRON INJ 2 MG/ML 2 ML VIAL IV PRN (18:44)
[2019-06-11 21:44] LABS: Partial Thromboplastin Ratio 2.9
[2019-06-11 22:10] LABS: Partial Thromboplastin Time 78.4 Seconds (21.0-31.0)
--- NOTE | 2019-06-11 22:21 | Hospitalist Progress Note ---
Date of Service June 11, 2019 Assessment & Plan (1) Multiple pulmonary emboli: Admit to inpatient on telemetry Vital signs every 4 hours CBC CMP daily Heparin drip continue for multiple pulmonary embolism Family is agreeable to coumadin. INR is therapuetic on 06/11 Will continue heparin IV for 24 hours. Dose of coumadin was missed on 06/09. Received 06/08, 06/10 5 mg dose. Goal is to keep INR at 2.0-2.4 At this point doubt, infection, infiltrate likely from pulmonary infarct continue antibiotics DuoNebs every 4 hours as needed Trend down lactic acid Appreciate input by pulmonary. Per family request patient is DNI DNR. (2) Pneumonia: Pending blood cultures, sputum culture pending Trend down lactic acid Continue cefepime, started doxycycline for MRSA coverage. Procalcitionin is negative. Will likely stop antibiotics tomorrow if cultures remain negative. Duo nebs every 4 hours as needed Solu-Medrol 30 mg IV every 12 will stop antibiotics on 06/12 (3) Lactic acidosis: Repeat lactic acid Continue IV fluids (4) Decubital ulcer: Wound care (5) Dementia: Appears to be vascular in origin continue vitamin B12, donepezil 5 mg p.o. daily, (6) Constipation, chronic: Continue senna S1 tablet p.o. daily, Colace 100 mg p.o. twice daily (7) CAD (coronary artery disease): Coronary artery disease, hypertension , congestive heart failure Hold furosemide while patient is an acute pulmonary embolism Resuscitate fluid for now Continue metoprolol tartrate 50 mg p.o. twice daily, continue potassium chloride 10 mg p.o. twice daily, continue digoxin 125 mg p.o. daily (8) GERD (gastroesophageal reflux disease): Continue ranitidine 150 mg p.o. daily (9) DVT (deep venous thrombosis): Patient has acute dvt of bilateral lower extremities. Likely secondary to sedentary lifestyle. Family ok with starting coumadin. will check INR daily. Given poor quality of life, palliative care consult for goals of care. (10) Depression: Continue citalopram 20 mg p.o. daily Subjective Patient does not provide signficant history during my time in the room. She would open her eyes, say hello, and then go back to sleep. Her 2 daughters were in the room. They were updated. They both state that she does not have any quality of life. would like to have a palliative care meeting to discuss goals of care. Review of Systems Review of Systems: All systems reviewed & are unremarkable except as noted in HPI & below Physical Exam Physical Exam: Constitutional: WD/WN, vitals as above well developed and + frail appearing Eyes: PERRL, conjunctivae normal, anicteric sclerae ENMT: external ear and nose normal, oropharynx normal Neck: trachea midline, no thyromegaly Respiratory: patient appears tachypnic, crackles bilaterally. No wheezing heard Cardiovascular: Heart Sounds: normal S1, normal S2 and + murmur Palpation: + palpable S3 Vessels: + JVD Gastrointestinal (Abdomen): normal bowel sounds, soft, nontender, no hepatosplenomegaly Musculoskeletal: no cyanosis or clubbing, extremities motor strength 5/5 Skin: Large decubitus located at the back with macerated skin appears to be between second and third stage. Neurologic: patellar DTR's 2+ bilat, sensation intact Psychiatric: euthymic affect Lymphatic: no cervical or axillary lymphadenopathy Results & Data Vital Signs (Past 12 Hours) Vital Signs Temp Pulse Pulse Resp BP Pulse Ox 06/11/19 19:05 37.3 C 117 H 23 127/91 95 06/11/19 16:14 108 H 06/11/19 16:00 102 H 06/11/19 15:21 36.8 C 108 H 25 H 122/81 96 06/11/19 11:58 37.1 C 97 H 18 119/66 94 PG Care Time/CCT Total # of Minutes Spent Total Time Spent with Patient: Total time spent is greater than 50% in coordination of care (as documented) at patient's floor/unit and/or counseling patient: (1) Pneumonia Laterality: right Lung location: lower lobe of lung Pneumonia type: due to unspecified organism Qualified Code(s): J18.1 - Lobar pneumonia, unspecified organism
[2019-06-12 04:41] LABS: INR 2.7 (0.9-1.1); Partial Thromboplastin Ratio 2.5
[2019-06-12 04:55] LABS: Partial Thromboplastin Time 65.2 Seconds (21.0-31.0)
[2019-06-12] MEDS: DOXYCYCLINE HYCLATE 100 MG CAP PO SCH ×2 (06:09→20:43)
--- NOTE | 2019-06-12 07:09 | XRay Report ---
XR chest 1V portable CLINICAL HISTORY: Pulmonary edema COMPARISON STUDY: 06/10/2019 FINDINGS: The heart remains mildly enlarged. There is persistent aortic tortuosity/ectasia. There are small bilateral pleural effusions. There is stable left basilar atelectasis/consolidation. There is a stable ill-defined rounded airspace opacity at the right lung base.[ IMPRESSION: No significant change from the prior study. Stable cardiomegaly, suspected small pleural effusions, and basilar airspace opacities. Electronically signed by: Osman Winchester M.D. 06/12/2019 7:08 AM
[2019-06-12] MEDS: DOCUSATE SODIUM 100 MG CAP PO SCH ×2 (07:58→20:44)
[2019-06-12] MEDS: POTASSIUM CHLORIDE 10 MEQ TABCR PO SCH ×2 (07:58→20:45)
[2019-06-12] MEDS: CITALOPRAM 20 MG TAB PO SCH (07:58)
[2019-06-12] MEDS: FERROUS GLUCONATE 324 MG TAB PO SCH ×3 (07:58→22:29)
[2019-06-12] MEDS: ASPIRIN 81 MG ECTAB PO SCH (07:58)
[2019-06-12] MEDS: DONEPEZIL HCL 5 MG TAB PO SCH (07:58)
[2019-06-12] MEDS: CHOLECALCIFEROL 1,000 UNITS TAB PO SCH (07:59)
[2019-06-12] MEDS: CALCIUM CARBONATE 1250MG TAB PO SCH (07:59)
[2019-06-12] MEDS: CYANOCOBALAMIN 500 MCG TABLET (VITAMIN B-12) PO SCH (07:59)
[2019-06-12] MEDS: POLYETHYLENE (MIRALAX) 17 GM PACK PO SCH (08:00)
[2019-06-12] MEDS: METOPROLOL TARTRATE 50 MG TAB PO SCH ×2 (08:03→20:45)
[2019-06-12] MEDS: CEFEPIME 2,000 MG in SYRINGE 0 ML IV SCH ×2 (10:28→22:29)
--- NOTE | 2019-06-12 11:56 | Pulmonology Progress Note ---
Date of Service June 12, 2019 Assessment & Plan (1) Multiple pulmonary emboli: The patient now has an acceptable INR and there is been crossover with heparin for 24 hours. I believe the IV heparin can be discontinued. She does not seem as well as she had been previously. The reason for that is not clear. Oxygenation is normal. Cardiac rate is normal. The patient's granddaughter is present during this evaluation. She was not sure if her grandmother recognized her or not. She did indicate that in the nursing on the patient is essentially non-ambulatory. (2) Bilateral pleural effusion: These are small and as of now require no therapy. They can simply be followed radiographically. We will sign off for now. We will see the patient again only if specifically requested. [facility]. Subjective The patient is not as alert today. Also, she complains of shortness of breath today, although she does not appear to be short winded. She denies chest pains. She was definitely more difficult to communicate with today. Physical Exam Physical Exam: The patient is an 88-year-old female who is lethargic but arousable. She is not oriented. She does not seem nearly as comfortable as she had previously. Temperature 36.4. Cardiac rate controlled at 84/min. Rhythm is irregular. Blood pressure 114/81. Lung gutierrez were clear bilaterally. Respiratory rate 20 breaths/min at the time of my exam. Saturation 95% on room air. Extremities showed no cyanosis clubbing or edema. Results & Data Vital Signs (Past 12 Hours) Vital Signs Temp Pulse Pulse Resp BP Pulse Ox 06/12/19 10:37 36.4 C L 84 19 114/81 95 06/12/19 08:36 100 H 06/12/19 08:00 120 H 120/81 06/12/19 07:05 36.9 C 105 H 25 H 98/56 L 94 06/12/19 03:58 36.6 C 109 H 25 H 97/72 L 95 06/12/19 00:00 101 H Laboratory Results INR today is 2.5. PTT today 65.2. Diagnostic Findings Portable chest x-ray today shows mild haziness at both lung bases. Mild atelectasis or consolidation is suspected versus small effusions. PG Care Time/CCT Total # of Minutes Spent Total Time Spent with Patient: Total time spent is greater than 50% in coordination of care (as documented) at patient's floor/unit and/or counseling patient:
--- NOTE | 2019-06-12 12:47 | Palliative Care Consultation ---
Date of Consultation June 12, 2019 Assessment & Plan (1) Goals of care, counseling/discussion: -88 year old female with PMH coronary artery disease, A. fib, hypertension, advanced dementia, recurrent urinary tract infection, GERD, hypertension, who presented from [facility] for shortness of breath. CTA chest showed extensive bilateral pulmonary emboli, possible pulmonary infarct and possible pneumonia. Apparently patient has recently been declining from a functional standpoint as well as her dementia and has been bedbound for some time now. She was also found to have lower extremity DVTs. She was started on a heparin gtt and PO warfarin. Also being treated with abx for pneumonia. Unfortunately patient is experiencing some negative side effects of a sedentary lifestyle, such as clots and decubitus ulcers. Her dementia, per family report, has been progressing and family is interested in discussing options for palliation. -Met with patient this morning in room 201. She is awake and pleasantly confused. Knows her name of course and that she is in hospital, but does not kno w why. She does not the month or year. She has been incontinent of bowel and bladder (now has Esparza). -FAST score 6e PPS 30% due to bedbound status -Family meeting today at 3pm. Update after family meeting: -Discussed with patient's children Nagi (POJamil), Geetha and Radha. They state that patient has been declining over the last year. She has not been walking or really getting out of bed at all since September when she broke her shoulder. She only occasionally recognizes her family. They agree that her dementia is severe. We also talked about patient's decreased oral intake, which has been going on for a long time per family. Albumin is 1.7. -Talked about goals of care. Family states that main goal is for COMFORT and they really want to avoid further hospitalizations as they are hard on the patient. -Plan is for patient to return to [facility] on hospice. -POLST form completed as follows: DNR, comfort measures only, abx with comfort as the goal, trial period of IVF but NO feeding tube. Main goal is for comfort. -Spoke with machine adjuster leader case trim and attending physician about plan. Heparin gtt to be discontinued as INR is therapeutic. Warfarin will be continued. Patient medically stable for discharge. (2) DVT (deep venous thrombosis): (3) Multiple pulmonary emboli: (4) Dementia: History of Present Illness Attending Physician: Mark Anthony Pires History of Present Illness This 88 year old female with PMH coronary artery disease, A. fib, hypertension, advanced dementia, recurrent urinary tract infection, GERD, hypertension, who presented from [facility] for shortness of breath. CTA chest showed extensive bilateral pulmonary emboli, possible pulmonary infarct and possible pneumonia. Apparently patient has recently been declining from a functional standpoint as well as her dementia and has been bedbound for some time now. She was also found to have lower extremity DVTs. She was started on a heparin gtt and PO warfarin. Also being treated with abx for pneumonia. Unfortunately patient is experiencing some negative side effects of a sedentary lifestyle, such as clots and decubitus ulcers. Her dementia, per family report, has been progressing and family is interested in discussing options for palliation. Thank you kindly for this consult. Palliative care team will follow as needed. Allergies Allergy/AdvReac Type Severity Reaction Status Date / Time nitrofurantoin Allergy Intermediate MACROBID-HI Verified 06/07/19 10:31 VES colchicine Allergy Unknown UNKNOWN Verified 06/07/19 10:31 zolpidem AdvReac Mild CONFUSION, Verified 06/07/19 10:31 HALLUCINATIONS Home Medications Home Medications Medication Instructions Recorded Confirmed Type alum-mag hydroxide-simeth [Mi-Acid] 30 ml PO QID PRN 07/28/18 06/07/19 History aspirin 81 mg PO DAILY 07/28/18 06/07/19 History calcium carbonate [Oysco-500] 500 mg PO QAM 07/28/18 06/07/19 History cholecalciferol (vitamin D3) 1,000 unit PO DAILY 07/28/18 06/07/19 History [Vitamin D3] cyanocobalamin (vitamin B-12) 1,000 mcg PO DAILY 07/28/18 06/07/19 History [Vitamin B-12] docusate sodium [Colace] 100 mg PO BID 07/28/18 06/07/19 History donepezil 5 mg PO DAILY 07/28/18 06/07/19 History furosemide [Lasix] 20 mg PO DAILY 07/28/18 06/07/19 History polyethylene glycol 3350 [Miralax] 17 g PO DAILY 07/28/18 06/07/19 History prednisone 10 mg PO DAILY 07/28/18 06/07/19 History sennosides-docusate sodium 1 tab PO DAILY 07/28/18 06/07/19 History [Senna-S] acetaminophen 650 mg AR Q6H PRN 05/16/19 06/07/19 History bisacodyl [Dulcolax (bisacodyl)] 10 mg AR DAILY PRN 05/16/19 06/07/19 History ferrous gluconate 324 mg PO TID 05/16/19 06/07/19 History citalopram 20 mg PO DAILY 06/07/19 06/07/19 History digoxin [Digox] 125 mcg PO DAILY 06/07/19 06/07/19 History fluconazole 100 mg PO DAILY 06/07/19 06/07/19 History metoprolol tartrate 50 mg PO BID 06/07/19 06/07/19 History potassium chloride 10 meq PO BID 06/07/19 06/07/19 History ranitidine HCl [Zantac] 150 mg PO DAILY 06/07/19 06/07/19 History Patient History Medical History CAD (coronary artery disease) (Chronic) s/p stent to LAD in 2012 In 2012, the patient was seen as an outpatient by Dr. Rodriguez, with complaint of symptoms consistent with unstable angina, she was found to have significant lateral ST segment depression on EKG and was therefore hospitalized and underwent cardiac catheterization on 07/03/13 with findings of an ulcerated culprit plaque in the first diagonal branch of the LAD with patent coronaries otherwise. Atrial fibrillation (Chronic) PAF. hospitalized once for A fib with RVR. On COUMADIN Dementia (Chronic) Polymyalgia rheumatica (Chronic) On prednisone 10mg PO daily. GERD (gastroesophageal reflux disease) (Chronic) HTN (hypertension) (Chronic) Fall (Acute) Patient reports fall was preceded by dizziness. Denies LOC. This happened last month resulting in an ER visit with large knee effusion. Basal cell carcinoma of face (Resolved Unknown) NSTEMI (non-ST elevated myocardial infarction) (Resolved) 2012 Alzheimer disease (Chronic) NSTEMI (non-ST elevated myocardial infarction) (Resolved) Anemia Surgical History History of total hip arthroplasty History of colonoscopy History of spinal fusion Family History Other Family history of high blood pressure Social History Preferred Language: Chinese Communication Ability: alzheimers Signals Officer Required: No Beliefs That Will Affect Care: None marital status: / Current Living Situation: Care Home Other Information That Helps Us Care for You: Yes Feels Safe at Home: Yes Safety Concerns: Feels Safe At This Time Smoking Status: Never smoker Second Hand Exposure: No ; Hx Alcohol Use: No Hx Substance Use: No Review of Systems Constitutional: no fever and no chills Ear, Nose, Mouth, Throat: no dysphagia Respiratory: no cough and no dyspnea Cardiovascular: no chest pain Gastrointestinal: no abdominal pain and no nausea Psychiatric: no anxiety Physical Exam Constitutional: well developed and well nourished; no acute distress Eyes: PERRL ENMT: external ear and nose normal, oropharynx normal Neck: normal visual inspection Respiratory: normal respiratory effort Auscultation: + diminished lung sounds Cardiovascular: Rate/Rhythm: regular rate and + irregularly irregular Vessels: dorsalis pedis pulses present Extremities: no edema Gastrointestinal (Abdomen): Inspection/Auscultation: abdomen normal to inspection and normal bowel sounds Percussion/Palpation: abdomen soft; abdomen nontender Skin: no rashes, warm and dry Neurologic: moves all extremities and awake Psychiatric: Orientation: alert, oriented to person and oriented to place (knew she was in hospital, did not know why); + not oriented to time Results & Data Vital Signs (Past 12 Hours) Vital Signs Temp Pulse Pulse Resp BP Pulse Ox 06/12/19 10:37 36.4 C L 84 19 114/81 95 06/12/19 08:36 100 H 06/12/19 08:00 120 H 120/81 06/12/19 07:05 36.9 C 105 H 25 H 98/56 L 94 06/12/19 03:58 36.6 C 109 H 25 H 97/72 L 95 Time Spent Midlevel 80 minutes with >50% of the time spent at bedside with patient and family discussing GOC, hospice, and POLST form.
[2019-06-12] MEDS ORDERED: WARFARIN SOD 1 MG TAB PO SCH (16:00)
[2019-06-12] MEDS: DIGOXIN 0.125 MG TAB PO SCH (16:07)
[2019-06-12] MEDS: HEPARIN SODIUM/DEXTROSE 25,000 UNITS/500 ML BAG IV SCH (19:11)
--- NOTE | 2019-06-12 22:51 | Hospitalist Progress Note ---
Date of Service June 12, 2019 Assessment & Plan (1) Multiple pulmonary emboli: Admit to inpatient on telemetry Vital signs every 4 hours CBC CMP daily Heparin drip continue for multiple pulmonary embolism Family is agreeable to coumadin. INR is therapuetic on 06/11 Will bridge with heparin and then discontinue. Dose of coumadin was missed on 06/09. Received 06/08, 06/10 5 mg dose. Will receive 1 mg dose of coumadin of 3mg. Goal is to keep INR at 2.0-2.4 At this point doubt, infection, infiltrate likely from pulmonary infarct continue antibiotics DuoNebs every 4 hours as needed Trend down lactic acid Appreciate input by pulmonary. Per family request patient is DNI DNR. Family is now agreeable to hospice after palliative care meeting. (2) Pneumonia: Pending blood cultures, sputum culture pending Trend down lactic acid Continue cefepime, started doxycycline for MRSA coverage. Procalcitionin is negative. Will likely stop antibiotics tomorrow if cultures remain negative. Duo nebs every 4 hours as needed Solu-Medrol 30 mg IV every 12 will stop antibiotics on 06/12 (3) Lactic acidosis: Repeat lactic acid Continue IV fluids (4) Decubital ulcer: Wound care (5) Dementia: Appears to be vascular in origin continue vitamin B12, donepezil 5 mg p.o. daily, (6) Constipation, chronic: Continue senna S1 tablet p.o. daily, Colace 100 mg p.o. twice daily (7) CAD (coronary artery disease): Coronary artery disease, hypertension , congestive heart failure Hold furosemide while patient is an acute pulmonary embolism Resuscitate fluid for now Continue metoprolol tartrate 50 mg p.o. twice daily, continue potassium chloride 10 mg p.o. twice daily, continue digoxin 125 mg p.o. daily (8) GERD (gastroesophageal reflux disease): Continue ranitidine 150 mg p.o. daily (9) DVT (deep venous thrombosis): Patient has acute dvt of bilateral lower extremities. Likely secondary to sedentary lifestyle. Family ok with starting coumadin. will check INR daily. Given poor quality of life, palliative care consult for goals of care. (10) Depression: Continue citalopram 20 mg p.o. daily Subjective 88 yo female does not provide much history today. Family is not at bedside. Review of Systems Review of Systems: All systems reviewed & are unremarkable except as noted in HPI & below Physical Exam Physical Exam: Constitutional: WD/WN, vitals as above well developed and + frail appearing Eyes: PERRL, conjunctivae normal, anicteric sclerae ENMT: external ear and nose normal, oropharynx normal Neck: trachea midline, no thyromegaly Respiratory: patient appears tachypnic, crackles bilaterally. No wheezing heard Cardiovascular: Heart Sounds: normal S1, normal S2 and + murmur Palpation: + palpable S3 Vessels: + JVD Gastrointestinal (Abdomen): normal bowel sounds, soft, nontender, no hepatosplenomegaly Musculoskeletal: no cyanosis or clubbing, extremities motor strength 5/5 Skin: Large decubitus located at the back with macerated skin appears to be between second and third stage. Neurologic: patellar DTR's 2+ bilat, sensation intact Psychiatric: euthymic affect Lymphatic: no cervical or axillary lymphadenopathy Results & Data Vital Signs (Past 12 Hours) Vital Signs Temp Pulse Pulse Resp BP Pulse Ox 06/12/19 19:07 36.5 C 105 H 24 126/54 L 92 06/12/19 16:07 86 06/12/19 16:00 95 H 06/12/19 15:23 36.4 C L 98 H 18 126/71 93 PG Care Time/CCT Total # of Minutes Spent Total Time Spent with Patient: Total time spent is greater than 50% in coordination of care (as documented) at patient's floor/unit and/or counseling patient: (1) Pneumonia Laterality: right Lung location: lower lobe of lung Pneumonia type: due to unspecified organism Qualified Code(s): J18.1 - Lobar pneumonia, unspecified organism
[2019-06-13] MEDS: DOXYCYCLINE HYCLATE 100 MG CAP PO SCH (07:00)
[2019-06-13 07:21] LABS: INR 2.6 (0.9-1.1); Partial Thromboplastin Ratio 2.7; Prothrombin Time 24.8 Seconds (9.0-12.0)
[2019-06-13 07:30] LABS: Partial Thromboplastin Time 73.9 Seconds (21.0-31.0)
[2019-06-13] MEDS: DOCUSATE SODIUM 100 MG CAP PO SCH (08:10)
[2019-06-13] MEDS: DOCUSATE SODIUM/SENNA 50/8.6MG TAB PO SCH (08:10)
[2019-06-13] MEDS: FERROUS GLUCONATE 324 MG TAB PO SCH (08:10)
[2019-06-13] MEDS: METOPROLOL TARTRATE 50 MG TAB PO SCH (08:10)
[2019-06-13] MEDS: DONEPEZIL HCL 5 MG TAB PO SCH (08:10)
[2019-06-13] MEDS: CITALOPRAM 20 MG TAB PO SCH (08:11)
[2019-06-13] MEDS: ASPIRIN 81 MG ECTAB PO SCH (08:11)
[2019-06-13] MEDS: CYANOCOBALAMIN 500 MCG TABLET (VITAMIN B-12) PO SCH (08:11)
[2019-06-13] MEDS: POTASSIUM CHLORIDE 10 MEQ TABCR PO SCH (08:11)
[2019-06-13] MEDS: CALCIUM CARBONATE 1250MG TAB PO SCH (08:11)
[2019-06-13] MEDS: POLYETHYLENE (MIRALAX) 17 GM PACK PO SCH (08:11)
[2019-06-13] MEDS: CHOLECALCIFEROL 1,000 UNITS TAB PO SCH (08:12)
[2019-06-13] MEDS: HEPARIN SODIUM/DEXTROSE 25,000 UNITS/500 ML BAG IV SCH (09:40)
== END 2019-06-13 13:38 | DRG 175 ==
LOC: ED 09:54 → SUATTDRO 16:32 → OBSVTOIN 16:32 → INTOOBSV 16:32 → 2E 16:32